=== PATIENT | male | born 1950 | race Caucasian/White ===

== ENCOUNTER 2016-10-11 13:07 | Inpatient (IN) | payer OTHER, MEDICARE ==
[~2016-10-11] VITALS: Ht 182.9 cm; Wt 95.7 kg
[~2016-10-11 13:07] MED LIST: LORAZEPAM1 M1 PO; MULTI-DAY VITA1 EACH PO
[2016-10-11] MEDS ORDERED: AMLODIPINE BESY10 M1 PO (14:01)
--- NOTE | 2016-10-11 14:29 | ED PSYCHIATRIC COMPLAINT ---
See Addendum History of Present Illness General Chief Complaint: ETOH/Drug Related Complaint Stated Complaint: SIB DR OLIVEIRA, REQUESTING ETOH DETOX, -SI/HI Source: patient, old records Exam Limitations: no limitations Vital Signs & Intake/Output Vital Signs & Intake/Output Vital Signs Date Time Temp Pulse Resp B/P B/P Pulse O2 O2 Flow FiO2 Mean Ox Delivery Rate 10/11 2002 97.9 88 19 177/88 97 Room Air 10/11 2001 97.9 88 18 177/88 10/11 1903 98.6 76 20 194/98 98 Room Air 10/11 1902 98.6 76 20 194/98 10/11 1554 97.0 70 18 148/81 96 Room Air 10/11 1313 97.5 74 20 172/80 98 Room Air Allergies Coded Allergies: No Known Allergies (10/11/16) Reconcile Medications Amlodipine Besylate 10 MG TABLET 1 TAB PO DAILY BP (Reported) Triage Note: PT TO ED WITH REQUESTING DETOX FROM ALCOHOL. PT HAS BEEN DRINKING NON STOP FOR 2 WEEKS. PT SENT IN BY DR BRANDON. PT WENT TO SEE DR BRANDON YESTERDAY FOR C/O FATIGUE. LABS WERE DRAWN AND PT WAS FOUND TO HAVE ETOH LEVEL OF 288 AND ELEVATED AST AND ALT. PT HAS NEVER TRIED TO DETOX IN THE PAST. UNSURE IF WITHDRAWL SEIZURES. PT ADMITS TO OCCASIONAL MARIJUANA USE. DENIES SI/HI. STATES HE DRINKS 1 LARGE BOTTLE OF WINE, 6-7 BEERS AND A COUPLE OF NIPS DAILY. LAST DRINK WAS 2 BEERS THIS AM. PT STATES ALL HE WANTS TO DO IS SLEEP. Triage Nurses Notes Reviewed? yes Onset: Just prior to arrival Duration: hour(s):, constant, continues in ED Timing: recent history Severity: moderate Associated Symptoms: impaired concentration, insomnia HPI: Patient presents for alcohol detox last drink 6 hours prior to admission. He normally drinks several bottles of wine and many shots of vodka daily. He becomes shaky when he stops drinking. Daily he has had physical depression point rest in bed all day and sleep having associated insomnia. He's never stopped for a long period of time and doesn't know if he will have withdrawal seizure or DTs. He denies fever chills nausea vomiting diarrhea abdominal pain chest pain shortness breath headache dysuria rash bleeding suicidal ideation homicidal ideation hallucination. (HIPMAIRA CROSS MD) Past History Travel History Traveled to [place] past 21 day No Medical History Any Pertinent Medical History? 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 No (MAIRA LEMUS MD) Review of Systems Review of Systems Constitutional: Reports: see HPI, malaise. EENTM: Reports: no symptoms. Respiratory: Reports: no symptoms. Cardiovascular: Reports: no symptoms. GI: Reports: no symptoms. Genitourinary: Reports: no symptoms. Musculoskeletal: Reports: no symptoms. Skin: Reports: no symptoms. Neurological/Psychological: Reports: no symptoms. Hematologic/Endocrine: Reports: no symptoms. Immunologic/Allergic: Reports: no symptoms. All Other Systems: Reviewed and Negative (MAIRA LEMUS MD) Physical Exam Physical Exam General Appearance: well developed/nourished, alert, awake, anxious, mild distress Head: atraumatic, normal appearance Eyes: Bilateral: normal appearance, PERRL, EOMI. 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 patient not suicidal (MAIRA LEMUS MD) Progress Differential Diagnosis: drug intoxication, drug overdose, drug withdrawal, electrolyte abnormality Plan of Care: Orders Procedure Date/time Status Regular Diet 10/12 D Active Heart Healthy Diet 10/12 B Active Patient Data 06/28 1947 Active ED Holding Orders 10/12 1927 Active Admit to inpatient 10/12 1927 Active Vital Signs 10/12 1927 Active Code Status 10/12 1927 Active Pathway - chart 10/11 1921 Active EKG 10/11 1920 Active CIWA 10/11 1436 Active URINE DRUG SCREEN FOR ER ONLY 10/11 1436 Complete ETHANOL 10/11 1436 Complete COMPREHENSIVE METABOLIC PANEL 10/11 1436 Complete CBC WITHOUT DIFFERENTIAL 10/11 1436 Complete Intake & Output 10/11 1406 Active Current Medications Sig/Will Start time Last Medication Dose Stop Time Status Admin Lorazepam 1 MG Q12H 10/13 0000 AC (Ativan) 10/13 1201 Amlodipine Besylate 10 MG DAILY 10/12 1000 AC (Norvasc) Folic Acid 1 MG DAILY 10/12 1000 UNVr (Folic Acid) 10/14 1001 Multivitamins 1 TAB DAILY 10/12 1000 UNVr (Theragran Vitamins) Thiamine HCl 100 MG DAILY 10/12 1000 UNVr (Vitamin B1) 10/14 1001 Lorazepam 1.5 MG Q6 10/12 0600 AC (Ativan) 10/12 1801 Acetaminophen 1,000 MG ONCE ONE 10/11 2014 UNVr (Ofirmev) 10/11 2028 N/A 1 UNIT (No Carrier) Lorazepam 2 MG Q2P PRN 10/11 1929 AC (Ativan) Lorazepam 1 MG Q2P PRN 10/11 193 AC (Ativan) Lorazepam 2 MG Q6 10/11 1921 AC (Ativan) 10/12 0001 Cyanocobalamin/ 1 BAG DAILY 10/11 1920 AC Thiamine/Pyridoxine (Vitamin in I.V.) Sodium Chloride 1,000 ML (Normal Saline 0.9%) Laboratory Tests 10/11/16 1446: Anion Gap 14, Estimated GFR > 60, BUN/Creatinine Ratio 12.5, Glucose 115 H, Calcium 8.8, Total Bilirubin 1.0, AST 175 H, ALT 180 H, Alkaline Phosphatase 79, Total Protein 7.1, Albumin 4.5, Globulin 2.6, Albumin/Globulin Ratio 1.7, CBC w Diff NO MAN DIFF REQ, RBC 4.44 L, MCV 94.4 H, MCH 33.0 H, RDW 12.7, MPV 7.2 L, Gran % 58.7, Lymphocytes % 25.6, Monocytes % 14.7 H, Eosinophils % 0.8, Basophils % 0.2, Absolute Granulocytes 2.4, Absolute Lymphocytes 1.0 L, Absolute Monocytes 0.6, Absolute Eosinophils 0, Absolute Basophils 0, PUBS MCHC 35.0, Serum Alcohol 231.0 10/11/16 1439: Urine Opiates Screen < 100.00, Methadone Screen < 40, Barbiturate Screen < 60, Ur Phencyclidine Scrn < 6.00, Amphetamines Screen < 100, U Benzodiazepines Scrn < 85, Urine Cocaine Screen < 50, Urine Cannabis Screen > 80.00 H 3:15 PM PATIENT SIGNED OUT TO ME BY DR LEMUS. PENDING SOBRIETY, CIWA SCORES. 7:28 AM PATIENT STARTING TO HALLUCINATE, FEELING SHAKY. CIWA 12. IV ATIVAN ORDERED, ATIVAN PROTOCOL ORDERED. BANANA BAG ORDERED. ADMITTED TO DR TRIVEDI. (RESHMA LEACH MD) Hand-Off Endorsed To: RESHMA LEACH MD Endorsed Time: 1500 Pending: labs, other (GIA) (MAIRA LEMUS MD) Departure Departure Disposition: STILL A PATIENT Condition: Stable Clinical Impression Primary Impression: Alcohol dependence syndrome Qualifiers: Substance use status: unspecified alcohol-induced disorder Qualified Code: F10.29 - Alcohol dependence with unspecified alcohol-induced disorder Secondary Impressions: Acute alcoholic hepatitis Alcohol intoxication Qualifiers: Complication of substance-induced condition: with unspecified complication Qualified Code: F10.929 - Alcohol use, unspecified with intoxication, unspecified Referrals: ROMA TERRAZAS,KARSTEN Luo (PCP/Family) Departure Forms: Customer Survey General Discharge Information (MAIRA LEMUS MD) Departure Time of Disposition: 1920 Admission Note Spoke With: WAQAS TRIVEDI MD Documentation of Exam: Documentation of any treatments & extenuating circumstances including Concerns Regarding Discharge (functional status, medication knowledge or non-compliance, living conditions, etc.) that warrant an admission rather than observation: [ ATIVAN TAPER, CIWA PROTOCOL, SEIZURE PRECAUTIONS, CRISIS CONSULTATION, MONITOR I /O] (RESHMA LEACH MD)
[2016-10-11 14:57] LABS: ABSOLUTE BASOPHIL COUNT 0 /CUMM (0.0-0.2); ABSOLUTE EOSINOPHIL COUNT 0 /CUMM (0.0-0.7); ABSOLUTE GRANULOCYTE CT 2.4 /CUMM (1.4-6.5); ABSOLUTE MONOCYTE COUNT 0.6 /CUMM (0.10-0.60); BASOPHIL % 0.2 % (0.0-2.0); EOSINOPHIL % 0.8 % (0-5); GRANULOCYTE % 58.7 % (42.2-75.2); MEAN CORPUSCULAR VOLUME 94.4 FL (80.0-94.0); MEAN PLATELET VOLUME 7.2 FL (7.4-10.4); RBC DISTRIBUTION WIDTH 12.7 % (11.5-14.5); RED BLOOD CELL CT 4.44 /CUMM (4.70-6.10)
[2016-10-11 15:17] LABS: PLATELET COUNT 118 /CUMM (130-400)
[2016-10-11 19:02] VITALS: BP 194/98
[2016-10-11 20:02] VITALS: BP 177/88
[2016-10-11 21:15] VITALS: BP 166/88
[2016-10-11 23:00] VITALS: BP 166/72
[2016-10-12] VITALS (18 sets, daily range): BP systolic 119–196; BP diastolic 60–110
--- NOTE | 2016-10-12 00:54 | History & Physical ---
ODILIA TERRAZAS,[facility] 10/11/16 2242: General Information and HPI MD Statement: I have seen and personally examined FLO WOODWARD and documented this H&P. The patient is a 66 year old M who presented with a patient stated chief complaint of [alcohol detox]. Source of Information: patient Exam Limitations: poor historian History of Present Illness: Mr. Woodward is 66 year old male with past medical history of alcohol dependence, hypertension, transaminitis who presented to ED requesting alcohol detox. Patient has been drinking alcohol for more than 30 years, haven't been setup sober "for many years", never had alcohol detoxication in the past, no alcohol inpatient or outpatient detox program, no history of alcohol related seizure or previous hospitalization for alcohol related illness. Patient decided to come to the ED for alcohol detox after he received a call from PCP requesting him to come for abnormal lab test apparently transaminitis that was tested in 10/10. Patient used to drink 3 cans of beer, couple shots of vodka and gallon of red wine daily as "a reward for a long work day", patient mentioned working 3 different jobs and used to be stressed and drink the whole night. Last drink was day of admission at 8 AM. Patient denied history of cigarette smoking, smokes marijuana 3 times a week, no IV drug use. Last year patient had transaminitis and was evaluated by Dr. Ba who asked him to cut down or quit drinking. Patient reported cutting down in drinking. Patient reported lightheadedness, chronic cough, palpitation, hemorrhoidal bleeding, abdominal bloating. Denied headache, blurry vision, nausea or vomiting, abdominal pain, fever, chills, night sweats, chest pain, shortness of breath, dysuria, skin changes, numbness or weakness. 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 Exam & Diagnostic Data Last 24 Hrs of Vital Signs/I&O Vital Signs Date Time Temp Pulse Resp B/P B/P Pulse O2 O2 Flow FiO2 Mean Ox Delivery Rate 10/12 0406 98.6 85 16 182/98 95 Room Air 10/12 0400 98.6 84 20 182/98 10/12 0225 84 160/90 10/12 0208 85 170/100 10/12 0100 84 168/108 10/12 0000 98.9 85 16 170/100 10/11 2300 99.1 84 16 166/72 10/11 2300 99.1 84 16 166/72 96 Room Air 10/11 2224 98.8 78 18 174/78 94 Room Air 10/11 2118 98.2 74 16 166/88 94 Room Air 10/11 2115 98.2 74 16 166/88 10/11 2002 97.9 88 19 177/88 97 Room Air 10/11 2001 97.9 88 18 177/88 10/11 1903 98.6 76 20 194/98 98 Room Air 10/11 1902 98.6 76 20 194/98 10/11 1554 97.0 70 18 148/81 96 Room Air 10/11 1313 97.5 74 20 172/80 98 Room Air Intake & Output 10/12 0800 10/12 0000 10/11 1600 Intake Total 30 Output Total Balance 30 Intake, Oral 30 Patient 95.708 kg 95.708 kg Weight Weight Estimated Measurement Method Physical Exam General Appearance Alert, Oriented X3, Cooperative, No Acute Distress Skin No Rashes, No Breakdown, No Significant Lesion Skin Temp/Moisture Exam: Warm/Dry HEENT Atraumatic, PERRLA, EOMI, Mucous Membr. moist/pink Neck Supple, No JVD Lymphatic no cervical lymphadenopathy Cardiovascular Regular Rate, Normal S1, Normal S2, No Murmurs Lungs Clear to Auscultation, Normal Air Movement Abdomen Normal Bowel Sounds, Soft, No Tenderness, No Hepatospenomegaly, No Masses Neurological Normal Gait, Normal Speech, Strength at 5/5 X4 Ext, Normal Tone, Sensation Intact, Cranial Nerves 3-12 NL, Reflexes 2+, cerebullar function intact nystagmus , fime tremors ? flapping tremors Extremities No Clubbing, No Cyanosis, No Edema, Normal Pulses, No Tenderness/ Swelling Assessment/Plan Assessment: Mr. Woodward is 66 year old male with past medical history of alcohol dependence, hypertension, transaminitis who presented to ED requesting alcohol detox. In ED , patient developed 2 episodes of nonsustained asymptomatic SVT that broke down before giving any medication. Vitals Temperature 97.5, pulse 74, blood pressure 172/80, respiratory 20 with saturation 98% room air Lab H&H 14.7/42, platelets 118 muscle G1 41, potassium 3.8, BUN/creatinine 10/ 0.8, AST 175, was 223 on 10/10, ALT 180 was 209 on 10/10, atorvastatin 79, bilirubin normal, urine positive for cannabis and alcohol Problem list #Alcohol detox #SVT #HTN #Transaminitis Plan -Admit to telemetry floor -Ativan 2 mg every 6 -Ativan per CIWA -Vitals every shift -Seizure precaution, monitor for DT -Continue blood pressure medication -Serial troponins and EKG -Check magnesium and phosphorus -Check INR -Check ammonia -Check folic acid and thiamine -Obtain echocardiogram -Cardiology consultation in a.m. -Follow-up liver function test -Obtain abdominal ultrasound Code full DVT prophylaxis ALPS Diet heart healthy As Ranked By This Provider Problem List: 1. Alcohol intoxication Qualifiers Complication of substance-induced condition: with unspecified complication Qualified Code: F10.929 - Alcohol use, unspecified with intoxication, unspecified Core Measures/Miscellaneous Acute Coronary Syndrome ACS Diagnosis: No Cerebrovascular Accident CVA/TIA Diagnosis: No Congestive Heart Failure CHF Diagnosis: No VTE (View Protocol) VTE Risk Factors: Age > 40 No [facility] VTE prophylaxis d/t: No contraindications No VTE Pharm Prophylaxis d/t: Platelets below ref range VTE Diagnosis: No VTE Type: NONE VTE Confirmed by (Test): NONE Sepsis (View Protocol) Severe Sepsis Present: No Septic Shock Septic Shock Present: No Miscellaneous Documentation Attending Case Discussed With: WAQAS TRIVEDI MD Primary Care Physician: KARSTEN BRANDON MD Patient sees these Specialists none Level of Patient Care: Telemetry RONALD ANGELA MD 10/12/16 0113: Resident Review Statement Resident Statement: examined this patient, discussed with planner internship, agreed with planner internship Other Findings: 59-year-old man with past medical history significant only for hypertension, chronic alcohol abuse and seasonal allergies presents for alcohol detox for the first time. Patient was sent in by his primary care physician after his routine blood work showed elevated transaminases. He hasn't drinking for over 30 years continuously has not cut down last January after he was evaluated by a business development intern for elevated transaminases at that time, he reports that his liver function improved after some time, however he resumed drinking heavily again early this year. He doesn't feel the need to quit as he uses alcohol as his reward sytems for his hard work during the day but says his would like him to quit drinking. He denies any alcoholic seizures, previous hospitalizations or legal issues from call consumptions. He has also never been through AA meetings, inpatient or outpatient alcohol detox or rehabilitation programs and has never tried to quit on his own. He smokes marijuana 3 times a week and quit smoking cigarrettes about 25yrs ago. In the ER patient was found to have transient but requiring episodes of non- sustained SVT and patient denies any cardiac history or family history of cardiac disease. Patient remained asymptomatic throughout each episode. Vitals Stable except for elevated BP Pertinent exam-Tremors; other exam and labs per above Assessment 1. Alcohol detox 2. New onset of transient non-sustained SVT 3. Transaminitis 4. Thrombocytopenia 5. Hypertension 6. Chronic alcohol abuse Plan Admit to telemetry for close monitoring IV Ativan penicillin protocol and scheduled Ativan 2 mg every 6 hours IV banana bag 1; then start by mouth thiamine, multivitamins, folate Check magnesium and phosphate Daily LFTs Cardiology consult in a.m. for new onset SVT Try vasovagal maneuvers for any new run of SVT; but if it persists consider intravenous adenosine Obtain a right upper quadrant ultrasound scan to rule out ascites/cirrhosis Obtain an echocardiogram to rule out alcoholic cardiomyopathy or other structural heart disease Trend serial EKG and troponins Check coag's, ammoniaConsider Psych/SW consult in am for outpatient detox program if patient expresses interest Restart his home medication of amlodipine 10 mg daily Heart healthy diet Pain pathway ordered Alps for DVT ppx Full code WAQAS TRIVEDI 10/12/16 0450: Attending MD Review Statement Attending Statement Attending MD Statement: examined this patient, discuss w/resident/PA/FILER HELPER, agreed w/resident/PA/FILER HELPER, reviewed EMR data (avail), reviewed images, amended to note Attending Assessment/Plan: Cc: Alcohol detox PMH: Alcoholism, hypertension Patient is poor historian. Extensive alcohol history. Patient was recently feeling lethargic so he followed up with primary care physician, was found to have elevated liver enzymes, so he is was sent by primary care physician for all called detox. No previous attempt of detox, unaware of any alcohol related seizures. Denies any suicidal ideations. 14 point review of systems unremarkable. Vitals: Afebrile, pulse in 70s but patient had 2 episodes of SVT, lasted for 2 minutes each in ER. Hypertensive blood pressure 194/98, saturating well on room air. On exam: A O 3, cooperative, no acute distress, neck supple, JVD normal, no lymphadenopathy, mucosa moist, no focal neurological deficit, fine tremors present no dependent edema, no obvious skin rashes or inflammation CVS: S1-S2, RRR, tachycardia. RS: Clear to auscultate bilaterally. Abdomen: Soft, NT, ND, bowel sounds present. Labs: WBC 4.0, hemoglobin 14.7, hematocrit 42.0, platelet 118, MCV 94. Sodium 141, potassium 3.8, chloride 102, bicarbonate 24 Combivent and creatinine 0.8, glucose 115, calcium 8.8, AST 175, AST 180, albumin 4.5, bilirubin 1.0, alkaline phosphatase 79 called to 31, elevated marijuana levels 3 runs of SVT, 2 runs in ER, one run on telemetry floor. A and P 66-year-old male with a past medical history significant for hypertension, unclear compliance an extensive alcohol history was sent from PCP for elevated liver enzymes and alcohol level. Patient was visiting PCP for fatigue at that time. Other than generalized facial fatigue patient does not have any other complaints including but not limited to chest pain, shortness of breath, palpitations, weight loss, weight gain, loss of appetite, loss of consciousness, presyncope. Patient is significantly hypertensive in ER and was found to have SVT as mentioned above. Transaminitis secondary to alcoholism, significant alcohol levels and blood. He would benefit from telemetry admission for recurrent SVTs related to alcoholism, replete electrolytes + Alcoholism + Alcohol withdrawal + Alcoholic hepatitis + SVT + History of hypertension - Admit to telemetry - Continuous telemetry monitoring - Serial troponin and EKG - Check mag and phosphorus replete if low - Continue banana bag followed by IV hydration - High-dose thiamine - Check ammonia, INR, abdominal ultrasound to rule out splenomegaly, ascites, 2- D echo to rule out cardiomyopathy - Cardiology consult in a.m. - If patient happens to have persistent SVT more than 15 minutes then may require adenosine or beta ankur - Psych consult in a.m. - Repeat CBC, BMP, LFT, INR in a.m. - Continue home doses of amlodipine - Lovenox for DVT prophylaxis - Adequate pain control - Low threshold to transfer to ICU if severe DTs given extensive alcohol history
--- NOTE | 2016-10-12 04:53 | Admission Certification ---
Admission Certification Certification Statement - As attending physician, I certify that at the time of - admission, based on clinical presentation, severity of - symptoms, need for further diagnostic testing and - therapeutic interventions, and risk of adverse outcomes - without in-hospital treatment, in my clinical assessment, - this patient requires an acute hospital stay for a minimum - of two nights or longer. I have also considered psychsocial - factors such as support system, advanced age, financial - issues, cognitive issues, and failed out-patient treatments, - past re-admission history, safety of patient, and lack of - compliance as applicable. Specific rationale supporting this admission is: Alcohol detox, hypertension, SVT
--- NOTE | 2016-10-12 07:56 | Event Note ---
Event Note Event Note: Code 7 was called, when Mr Christianson was very agitated. He has been receiving the scheduled doses of ativan and also prn doses intravenously. Changed the dose of ativan to reflect the ciwa score, as a sliding scale. He was intermittently getting agitated, and required restraints. Spoke to the resident, and a decison was made to transfer the pt to the ICU for closer monitoring(assess the need for ativan drip). Since, the attending physician was not present at that time, the information was relayed over the tele team and icu team to coordiate a safe transfer.
[2016-10-12 08:14] LABS: PT 11.4 SEC (9.4-12.5)
--- NOTE | 2016-10-12 08:59 | Cons- CRCU ---
JANETTE TERRAZAS,[facility] 10/12/16 0859: General Information and HPI Consulting Request Date of Consult: 10/12/16 Source of Information: old records Exam Limitations: clinical condition History of Present Illness: 66/M with PMH of alcohol dependence, HTN, transaminitis who followed up with primary care physician, was found to have elevated liver enzymes, so he is was sent by primary care physician for all called detox. Patient reports drinking 3 cans of beer, couple shots of vodka and gallon of red wine daily. Last drink was on the day of admission at 8 AM. He has been drinking continuously for the past 30 years, he had cut down last January after he was evaluated by a shared services representative for elevated transaminases at that time , he reports that his liver function improved after some time, however he resumed drinking heavily again early this year. He doesn't feel any need to quit, his would like him to quit drinking. He denies any history of seizures, previous hospitalizations or legal issues related to alcohol consumptions. He has also never been to AA meetings, inpatient or outpatient alcohol detox or rehabilitation programs and has never tried to quit on his own. He smokes marijuana 3 times a week and quit cigarrettes about 25 yrs ago. Last year patient had transaminitis and was evaluated by Dr. Ba who asked him to cut down or quit drinking. Patient reported cutting down in drinking. The patient was evaluated in the ED and found to be hypertensive and an active alcohol withdrawal. In the ED he also was noted to develop 2 episodes of nonsustained SVT. The patient was admitted to the telemetry floor on the [facility] protocol. Over several hours however the patient's symptoms escalated and he became extremely hypertensive and tachycardic. He is also tremulous and confused. He was subsequent transfer to the critical care unit for further treatment and monitoring. The patient is confused and not able to adequately answer questions. Allergies/Medications Allergies: Coded Allergies: No Known Allergies (10/11/16) Home Med List: Amlodipine Besylate 10 MG TABLET 1 TAB PO DAILY BP (Reported) Review of Systems Review of Systems Constitutional: Reports: see HPI. 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 Home Smoking Status: Never Smoked ETOH Use: alcoholic Illicit Drug Use: marijuana Exam & Diagnostic Data Last 24 Hrs of Vital Signs/I&O Vital Signs Date Time Temp Pulse Resp B/P B/P Pulse O2 O2 Flow FiO2 Mean Ox Delivery Rate 10/12 0937 105 199/96 10/12 0847 98.9 94 18 125/98 10/12 0740 98.7 87 16 174/96 94 Room Air 10/12 0645 97.9 84 16 174/96 10/12 0530 88 20 188/98 10/12 0430 98.7 150 20 182/100 10/12 0406 98.6 85 16 182/98 95 Room Air 10/12 0400 98.6 84 20 182/98 10/12 0225 84 160/90 10/12 0208 85 170/100 10/12 0100 84 168/108 10/12 0000 98.9 85 16 170/100 10/11 2300 99.1 84 16 166/72 10/11 2300 99.1 84 16 166/72 96 Room Air 10/11 2224 98.8 78 18 174/78 94 Room Air 10/11 2118 98.2 74 16 166/88 94 Room Air 10/11 2115 98.2 74 16 166/88 10/11 2002 97.9 88 19 177/88 97 Room Air 10/11 2002 97.9 88 18 177/88 10/11 1903 98.6 76 20 194/98 98 Room Air 10/11 1902 98.6 76 20 194/98 10/11 1554 97.0 70 18 148/81 96 Room Air 10/11 1313 97.5 74 20 172/80 98 Room Air Intake & Output 10/12 1600 10/12 0800 10/12 0000 Intake Total 1000 Output Total 800 Balance 200 Intake, IV 1000 Intake, Oral 0 Output, Urine 800 Patient 95.708 kg Weight Physical Exam General Appearance: well developed/nourished, alert, awake, anxious, lethargic, mild distress, intoxicated Head: atraumatic, normal appearance Eyes: Bilateral: normal appearance, PERRL, EOMI. Respiratory: normal breath sounds, chest non-tender, no respiratory distress, quiet respiration, lungs clear Cardiovascular: regular rate/rhythm, tachycardia up to 150/min Gastrointestinal: soft, non-tender Last 48 Hrs of Labs/Polo: Laboratory Tests 10/12/16 1034: Troponin I Pending 10/12/16 0658: Ammonia 28 10/12/16 0658: Anion Gap 12, Estimated GFR > 60, BUN/Creatinine Ratio 14.3, Hemoglobin A1c 5.6, Phosphorus 3.0, Magnesium 1.7, Total Bilirubin 2.4 H, Direct Bilirubin 0.5 H, AST 157 H, ALT 175 H, Alkaline Phosphatase 89, Troponin I 0.03, Total Protein 7.3, Albumin 4.8, PT 11.4, INR 1.09 10/11/16 2330: Phosphorus 3.8, Magnesium 1.6, Troponin I 0.03 10/11/16 1446: Anion Gap 14, Estimated GFR > 60, BUN/Creatinine Ratio 12.5, Glucose 115 H, Calcium 8.8, Total Bilirubin 1.0, AST 175 H, ALT 180 H, Alkaline Phosphatase 79, Total Protein 7.1, Albumin 4.5, Globulin 2.6, Albumin/Globulin Ratio 1.7, CBC w Diff NO MAN DIFF REQ, RBC 4.44 L, MCV 94.4 H, MCH 33.0 H, RDW 12.7, MPV 7.2 L, Gran % 58.7, Lymphocytes % 25.6, Monocytes % 14.7 H, Eosinophils % 0.8, Basophils % 0.2, Absolute Granulocytes 2.4, Absolute Lymphocytes 1.0 L, Absolute Monocytes 0.6, Absolute Eosinophils 0, Absolute Basophils 0, PUBS MCHC 35.0, Serum Alcohol 231.0 10/11/16 1439: Urine Opiates Screen < 100.00, Methadone Screen < 40, Barbiturate Screen < 60, Ur Phencyclidine Scrn < 6.00, Amphetamines Screen < 100, U Benzodiazepines Scrn < 85, Urine Cocaine Screen < 50, Urine Cannabis Screen > 80.00 H Assessment/Plan Impression/Plan: Mr. Christianson is 66 year old male with past medical history of alcohol dependence, hypertension, transaminitis who presented to ED requesting alcohol detox. In ED , patient developed 2 episodes of nonsustained asymptomatic SVT that resolved spontaneous without interventions. 1. EtOH withdrawal/delirium tremens. Patient needed Ativan drip, for that reason he was transferred to the ICU unit. * Start aspiration and seizure precaution, keep patient nothing by mouth with elevated head of bed * Start Ativan drip as 4 mg/h and titer based on CIWA score * 500 thiamine IV every 8 for 6 dose followed by 250 mg IV once daily for 5 doses. * Continue multivitamin and folic acid daily * Zofran for nausea when necessary 2. Supraventricular tachycardia, nonsustained, likely related to EtOH withdrawal. * ACS was ruled out. * Pending echocardiogram * Replete electrolytes as necessary * Decrease metoprolol to 2.5 mg IV every 8 4. Transaminitis due to EtOH. * Pending liver ultrasound * Repeat ICU bundle at 6 PM * Repeat liver function daily Nothing by mouth DVT prophylaxis mechanical and pharmacological Full code Consult Acknowledgment - Thank you for your consult request. JUSTICE TERRAZAS,Peter ROWAN 10/12/16 0920: General Information and HPI Consulting Request Date of Consult: 10/12/16 Requested By: Dr. Guzman Reason for Consult: CRCU management of ETOH withdrawl Source of Information: old records Exam Limitations: clinical condition Allergies/Medications Current Medications: Current Medications Sig/Will Start time Last Medication Dose Route Stop Time Status Admin Acetaminophen 650 MG Q6P PRN 10/11 2229 AC PO Acetaminophen 0 .STK-MED ONE 10/11 2025 DC IV Acetaminophen 1,000 MG ONCE ONE 10/11 2014 DC 10/11 N/A 1 UNIT IV 10/11 Amlodipine Besylate 10 MG DAILY 10/12 1000 AC 10/12 PO 0208 Cyanocobalamin/ 1 BAG DAILY 10/11 1921 DC 10/11 Thiamine/Pyridoxine IV 10/12 0500 2009 Sodium Chloride 1,000 ML Cyclobenzaprine HCl 5 MG BID 10/11 223 AC 10/12 PO 0207 Diphenhydramine HCl 25 MG AT BEDTIME 10/12 2200 CAN PO Folic Acid 1 MG DAILY 10/12 1000 AC PO 10/14 1001 Hydromorphone HCl 0.5 MG Q4P PRN 10/11 2230 AC IV Lorazepam 1 MG Q12H 10/13 0000 CAN PO 10/13 1201 Lorazepam 2 MG ONCE ONE 10/12 0700 DC IV 10/12 0701 Lorazepam 1.5 MG Q6 10/12 0600 CAN PO 10/12 1801 Lorazepam 0 Q1P PRN 10/12 0530 AC 10/12 IV 0854 Lorazepam 1 MG ONCE ONE 10/12 0400 DC 10/12 IV 10/12 0401 0358 Lorazepam 2 MG Q6 10/11 2359 AC 10/12 PO 0614 Lorazepam 2 MG Q6H 10/11 2230 DC IV Lorazepam See Dose Q1P PRN 10/11 2230 DC Insts (1) IV Lorazepam 0 .STK-MED ONE 10/11 2024 DC .ROUTE Lorazepam 0 .STK-MED ONE 10/11 1934 DC PO Lorazepam 2 MG ONE ONE 10/11 1930 DC 10/11 IV 10/11 1931 1905 Lorazepam 2 MG ONCE ONE 10/11 1930 DC 10/11 PO 10/11 193 192 Lorazepam 2 MG Q2P PRN 10/11 1930 DC 10/12 IV 0430 Lorazepam 1 MG Q2P PRN 10/11 1930 AC IV Lorazepam 2 MG Q6 10/11 1922 DC 10/11 PO 10/12 0001 2020 Lorazepam 0 .STK-MED ONE 10/11 1913 DC .ROUTE Metoprolol Tartrate 12.5 MG ONCE ONE 10/12 0030 CAN PO 10/12 0031 Metoprolol Tartrate 5 MG ONCE ONE 10/11 2030 DC IV 10/11 203 Metoprolol Tartrate 0 .STK-MED ONE 10/11 2025 DC IV Multivitamins 1 TAB DAILY 10/12 1000 AC PO Ondansetron HCl 4 MG Q6P PRN 10/11 2345 AC IV Ondansetron HCl 0 .STK-MED ONE 10/11 1715 DC PO Ondansetron HCl 0 .STK-MED ONE 10/11 1712 DC .ROUTE Ondansetron HCl 4 MG ONCE ONE 10/11 1645 DC 10/11 PO 10/11 1646 1710 Oxycodone HCl 5 MG Q6P PRN 10/11 2300 AC PO Polyethylene Glycol 17 GM AT BEDTIME 10/12 2200 AC PO Senna/Docusate Sodium 2 TAB AT BEDTIME 10/12 2200 AC PO Thiamine HCl 100 MG DAILY 10/12 1000 AC PO 10/14 1001 Dose Instructions: (1)Lorazepam: See Admin Criteria Exam & Diagnostic Data Last 24 Hrs of Vital Signs/I&O Vital Signs Date Time Temp Pulse Resp B/P B/P Pulse O2 O2 Flow FiO2 Mean Ox Delivery Rate 10/12 0847 98.9 94 18 125/98 10/12 0740 98.7 87 16 174/96 94 Room Air 10/12 0645 97.9 84 16 174/96 10/12 0530 88 20 188/98 10/12 0430 98.7 150 20 182/100 10/12 0406 98.6 85 16 182/98 95 Room Air 10/12 0400 98.6 84 20 182/98 10/12 0225 84 160/90 10/12 0208 85 170/100 10/12 0100 84 168/108 10/12 0000 98.9 85 16 170/100 10/11 2300 99.1 84 16 166/72 10/11 2300 99.1 84 16 166/72 96 Room Air 10/11 2224 98.8 78 18 174/78 94 Room Air 10/11 2118 98.2 74 16 166/88 94 Room Air 10/11 2115 98.2 74 16 166/88 10/11 2002 97.9 88 19 177/88 97 Room Air 10/11 2001 97.9 88 18 177/88 10/11 1903 98.6 76 20 194/98 98 Room Air 10/11 1902 98.6 76 20 194/98 10/11 1554 97.0 70 18 148/81 96 Room Air 10/11 1313 97.5 74 20 172/80 98 Room Air Intake & Output 10/12 1600 10/12 0800 10/12 0000 Intake Total 1000 Output Total 800 Balance 200 Intake, IV 1000 Intake, Oral 0 Output, Urine 800 Patient 211 lb Weight Assessment/Plan Other Findings/Comments: I have personally seen and examined the patient and agree with the resident's assessment and plan as detailed above. Briefly, the patient is a 66-year-old male with a past medical history significant for hypertension with unclear compliance and an extensive alcohol history, noting he has been drinking for more than 30 years. The patient was sent from his primary care physician's office for elevated liver enzymes and elevated alcohol level. The patient was advised by his PCP to report to the emergency department after he was found to have transaminitis. The patient was reportedly drinking 3 cans of beer, a few shots of vodka and a gallon of red wine daily. His last drink was on the day of admission at 8 AM. The patient was evaluated in the ED and found to be hypertensive and an active alcohol withdrawal. In the ED he also was noted to develop 2 episodes of nonsustained SVT. The patient had evidence of transaminitis. His urine was positive for cannabis and alcohol. The patient was admitted to the telemetry floor on the CIWA protocol. Over several hours however the patient's symptoms escalated and he became extremely hypertensive and tachycardic. He is also tremulous and confused. He was subsequent transfer to the critical care unit for further treatment and monitoring. The patient is confused and not able to adequately answer questions. Impression: 1. EtOH withdrawal/delirium tremens. 2. Supraventricular tachycardia, nonsustained, likely related to EtOH withdrawal. 3. Uncontrolled hypertension. 4. Transaminitis due to EtOH. Plan: * Start an Ativan drip at 4 mg per hour. Avoid oversedation. * Continue the patient on an SAS of 3. * Monitor CIWA scores. * Seizure precautions, monitor for any seizures. * Aspiration precautions. * Keep head of the bed greater than 30 at all times. * NPO. * Multivitamin, thiamine and folate - banana bag. * High dose thiamine protocol initiated. * Serial EKGs and troponins. Cardiology consulted. Metoprolol recommended per Dr. Shepherd. * Check an echocardiogram. * Check a CBC, ICU bundle around 2 PM today. * Replete electrolytes as necessary. * Check a liver ultrasound for further evaluation of transaminitis. * DVT prophylaxis at all times. * Continue all supportive care. I discussed the plans of care with the housestaff in detail and asked him to contact me should the patient's condition change or deteriorate. Consult Acknowledgment - Thank you for your consult request.
--- NOTE | 2016-10-12 09:36 | Cons- Cardiology ---
General Information and HPI Consulting Request Date of Consult: 10/12/16 Requested By: WAQAS TRIVEDI MD Reason for Consult: Supra-ventricular tachycardia Source of Information: old records Exam Limitations: unable to give history, not alert/orientated, clinical condition, confusion, intoxication History of Present Illness: Mr. Christianson is 66 year old male with past medical history of alcohol dependence, hypertension, transaminitis who presented to ED requesting alcohol detox. Patient has been drinking alcohol for more than 30 years, haven't been setup sober "for many years", never had alcohol detoxication in the past, no alcohol inpatient or outpatient detox program, no history of alcohol related seizure or previous hospitalization for alcohol related illness. Patient decided to come to the ED for alcohol detox after he received a call from PCP requesting him to come for abnormal lab test apparently transaminitis that was tested in 10/10. Patient used to drink 3 cans of beer, couple shots of vodka and gallon of red wine daily as "a reward for a long work day", patient mentioned working 3 different jobs and used to be stressed and drink the whole night. Last drink was day of admission at 8 AM. Patient denied history of cigarette smoking, smokes marijuana 3 times a week, no IV drug use. Last year patient had transaminitis and was evaluated by Dr. Ba who asked him to cut down or quit drinking. Patient reported cutting down in drinking. Patient reported lightheadedness, chronic cough, palpitation, hemorrhoidal bleeding, abdominal bloating. Denied headache, blurry vision, nausea or vomiting, abdominal pain, fever, chills, night sweats, chest pain, shortness of breath, dysuria, skin changes, numbness or weakness. Cardiac consultation was called because of intermittent paroxysmal supraventricular tachycardia. I also noted has been hypertensive response related to alcoholic control. Allergies/Medications Allergies: Coded Allergies: No Known Allergies (10/11/16) Home Med List: Amlodipine Besylate 10 MG TABLET 1 TAB PO DAILY BP (Reported) Current Medications: Current Medications Sig/Will Start time Last Medication Dose Route Stop Time Status Admin Acetaminophen 650 MG Q6P PRN 10/11 2229 AC PO Acetaminophen 0 .STK-MED ONE 10/11 2025 DC IV Acetaminophen 1,000 MG ONCE ONE 10/11 2014 DC 10/11 N/A 1 UNIT IV 10/11 Amlodipine Besylate 10 MG DAILY 10/12 1000 AC 10/12 PO 0208 Cyanocobalamin/ 1 BAG DAILY 10/11 192 DC 10/11 Thiamine/Pyridoxine IV 10/12 0500 2010 Sodium Chloride 1,000 ML Cyclobenzaprine HCl 5 MG BID 10/11 2239 AC 10/12 PO 0207 Diphenhydramine HCl 25 MG AT BEDTIME 10/12 2200 CAN PO Folic Acid 1 MG DAILY 10/12 1000 AC PO 10/14 1001 Hydromorphone HCl 0.5 MG Q4P PRN 10/11 2230 AC IV Lorazepam 1 MG Q12H 10/13 0000 CAN PO 10/13 1201 Lorazepam 50 MG ONCE ONE 10/12 0930 UNir Sodium Chloride 500 ML IV 10/12 0931 Lorazepam 2 MG ONCE ONE 10/12 0700 DC IV 10/12 0701 Lorazepam 1.5 MG Q6 10/12 0600 CAN PO 10/12 1801 Lorazepam 0 Q1P PRN 10/12 0530 AC 10/12 IV 0854 Lorazepam 1 MG ONCE ONE 10/12 0400 DC 10/12 IV 10/12 0401 0358 Lorazepam 2 MG Q6 10/11 2359 AC 10/12 PO 0614 Lorazepam 2 MG Q6H 10/11 2230 DC IV Lorazepam See Dose Q1P PRN 10/11 223 DC Insts (1) IV Lorazepam 0 .STK-MED ONE 10/11 2024 DC .ROUTE Lorazepam 0 .STK-MED ONE 10/11 1934 DC PO Lorazepam 2 MG ONE ONE 10/11 193 DC 10/11 IV 10/11 193 190 Lorazepam 2 MG ONCE ONE 10/11 1930 DC 10/11 PO 10/11 193 192 Lorazepam 2 MG Q2P PRN 10/11 1930 DC 10/12 IV 0430 Lorazepam 1 MG Q2P PRN 10/11 1930 AC IV Lorazepam 2 MG Q6 10/11 192 DC 10/11 PO 10/12 0001 2020 Lorazepam 0 .STK-MED ONE 10/11 1912 DC .ROUTE Metoprolol Tartrate 5 MG Q8 10/12 0924 UNVr IV Metoprolol Tartrate 12.5 MG ONCE ONE 10/12 0030 CAN PO 10/12 0031 Metoprolol Tartrate 5 MG ONCE ONE 10/11 2030 DC IV 10/11 2030 Metoprolol Tartrate 0 .STK-MED ONE 10/11 2025 DC IV Multivitamins 1 TAB DAILY 10/12 1000 AC PO Ondansetron HCl 4 MG Q6P PRN 10/11 2345 AC IV Ondansetron HCl 0 .STK-MED ONE 10/11 1715 DC PO Ondansetron HCl 0 .STK-MED ONE 10/11 1712 DC .ROUTE Ondansetron HCl 4 MG ONCE ONE 10/11 1645 DC 10/11 PO 10/11 1646 1710 Oxycodone HCl 5 MG Q6P PRN 10/11 2300 AC PO Polyethylene Glycol 17 GM AT BEDTIME 10/12 220 AC PO Senna/Docusate Sodium 2 TAB AT BEDTIME 10/12 2200 AC PO Thiamine HCl 100 MG DAILY 10/12 1000 AC PO 10/14 1001 Dose Instructions: (1)Lorazepam: See Admin Criteria Past History Travel History Traveled to [place] past 21 day No Medical History Blood Transfusion Hx: No Neurological: NONE EENT: NONE Cardiovascular: hypertension Respiratory: NONE Gastrointestinal: NONE Hepatic: NONE Renal: NONE Musculoskeletal: CHRONIC BACK PAIN Psychiatric: NONE Endocrine: NONE Blood Disorders: NONE Cancer(s): NONE 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 Home Smoking Status: Never Smoked ETOH Use: alcoholic Illicit Drug Use: marijuana Exam & Diagnostic Data Vital Signs and I&O Vital Signs Date Time Temp Pulse Resp B/P B/P Pulse O2 O2 Flow FiO2 Mean Ox Delivery Rate 10/12 0847 98.9 94 18 125/98 10/12 0740 98.7 87 16 174/96 94 Room Air 10/12 0645 97.9 84 16 174/96 10/12 0530 88 20 188/98 10/12 0430 98.7 150 20 182/100 10/12 0406 98.6 85 16 182/98 95 Room Air 10/12 0400 98.6 84 20 182/98 10/12 0225 84 160/90 10/12 0208 85 170/100 10/12 0100 84 168/108 10/12 0000 98.9 85 16 170/100 10/11 2300 99.1 84 16 166/72 10/11 2300 99.1 84 16 166/72 96 Room Air 10/114 98.8 78 18 174/78 94 Room Air 10/11 2117 98.2 74 16 166/88 94 Room Air 10/11 2114 98.2 74 16 166/88 10/11 2002 97.9 88 19 177/88 97 Room Air 10/11 2001 97.9 88 18 177/88 10/11 1903 98.6 76 20 194/98 98 Room Air 10/11 1902 98.6 76 20 194/98 10/11 1554 97.0 70 18 148/81 96 Room Air 10/11 1313 97.5 74 20 172/80 98 Room Air Intake & Output 10/12 0810/12 0000 10/11 1600 10/11 0800 10/11 0000 Intake Total 1000 30 Output Total 800 Balance 200 30 Intake, IV 1000 Intake, Oral 0 30 Output, Urine 800 Patient 211 lb 211 lb Weight Weight Estimated Measurement Method Physical Exam: Patient agitated due to alcoholic withdrawal. Head normocephalic atraumatic Eyes sclera anicteric conjunctiva showed no pallor extraocular muscles were normal Neck no jugular venous distention no thyroid thyroid masses no palpable nodes Chest lungs were clear bilaterally Heart regular rhythm with a 1/6 systolic murmur Abdomen soft no organomegaly bowel sounds normal Extremities no clubbing cyanosis or pedal edema. Neurological no gross motor or sensory deficits. However patient confused and in alcoholic withdrawal. Labs/Polo Results: Laboratory Tests 10/12 10/12 10/11 10/11 0658 0658 2330 1446 Chemistry Sodium (137 - 145 mmol/L) 137 141 Potassium (3.5 - 5.1 mmol/L) 3.8 3.8 Chloride (98 - 107 mmol/L) 100 102 Carbon Dioxide (22 - 30 mmol/L) 26 25 Anion Gap (5 - 16) 12 14 BUN (9 - 20 mg/dL) 10 10 Creatinine (0.7 - 1.2 mg/dL) 0.7 0.8 Estimated GFR (>60 ml/min) > 60 > 60 BUN/Creatinine Ratio (7 - 25 %) 14.3 12.5 Glucose (65 - 99 mg/dL) 115 H Hemoglobin A1c (4.2 - 5.8 %) Pending Calcium (8.4 - 10.2 mg/dL) 8.8 Phosphorus (2.5 - 4.5 mg/dL) 3.0 3.8 Magnesium (1.6 - 2.3 mg/dL) 1.7 1.6 Total Bilirubin (0.2 - 1.3 mg/dL) 2.4 H 1.0 Direct Bilirubin (< 0.4 mg/dL) 0.5 H AST (17 - 59 U/L) 157 H 175 H ALT (21 - 72 U/L) 175 H 180 H Alkaline Phosphatase (< 127 U/L) 89 79 Ammonia (9 - 30 umol/L) 28 Troponin I (<0.11 ng/ml) 0.03 0.03 Total Protein (6.3 - 8.2 g/dL) 7.3 7.1 Albumin (3.5 - 5.0 g/dL) 4.8 4.5 Globulin (1.9 - 4.2 gm/dL) 2.6 Albumin/Globulin Ratio (1.1 - 2.2 %) 1.7 Coagulation PT (9.4 - 12.5 SEC) 11.4 INR (0.90 - 1.17) 1.09 Hematology CBC w Diff NO MAN DIFF REQ WBC (4.8 - 10.8 /CUMM) 4.0 L RBC (4.70 - 6.10 /CUMM) 4.44 L Hgb (14.0 - 18.0 G/DL) 14.7 Hct (42 - 52 %) 42.0 MCV (80.0 - 94.0 FL) 94.4 H MCH (27.0 - 31.0 PG) 33.0 H RDW (11.5 - 14.5 %) 12.7 Plt Count (130 - 400 /CUMM) 118 L MPV (7.4 - 10.4 FL) 7.2 L Gran % (42.2 - 75.2 %) 58.7 Lymphocytes % (20.5 - 51.1 %) 25.6 Monocytes % (1.7 - 9.3 %) 14.7 H Eosinophils % (0 - 5 %) 0.8 Basophils % (0.0 - 2.0 %) 0.2 Absolute Granulocytes (1.4 - 6.5 /CUMM) 2.4 Absolute Lymphocytes (1.2 - 3.4 /CUMM) 1.0 L Absolute Monocytes (0.10 - 0.60 /CUMM) 0.6 Absolute Eosinophils (0.0 - 0.7 /CUMM) 0 Absolute Basophils (0.0 - 0.2 /CUMM) 0 PUBS MCHC (33.0 - 37.0 G/DL) 35.0 Toxicology Serum Alcohol (<10 MG/DL) 231.0 10/11 1439 Toxicology Urine Opiates Screen (>2000 NG/ML) < 100.00 Methadone Screen (>300 NG/ML) < 40 Barbiturate Screen (>200 NG/ML) < 60 Ur Phencyclidine Scrn (>25 NG/ML) < 6.00 Amphetamines Screen (>1000 NG/ML) < 100 U Benzodiazepines Scrn (>200 NG/ML) < 85 Urine Cocaine Screen (>300 NG/ML) < 50 Urine Cannabis Screen (>50 NG/ML) > 80.00 H Diagnostic Data EKG Results Sinus rhythm with intermittent supraventricular tachycardia. Nonspecific ST and T-wave changes CXR Results Well-aerated lungs without focal consolidation. Assessment/Plan Assessment/Plan In summary this 66-year-old gentleman who was previously unknown to me was admitted with acute alcoholic withdrawal and transferred to the intensive care unit for Ativan drip. He was noted to have intermittent supraventricular tachycardia. His blood pressure is also elevated. I suspect both of this is related to hyper adrenergic state related to alcohol withdrawal. He does carry a history of hypertension. I would initiate metoprolol 5 mg IV every 8 hours, in the hope of decreasing his hyperadrenergic state and probably decreasing the chances of going into atrial fibrillation and supraventricular tachyarrhythmia. However Ativan drip will help both to decrease his agitation and therefore his hyperadrenergic state and also to decrease his blood pressure. Should the Ativan drip work I would probably hold metoprolol for heart rate less than 90 and a systolic blood pressure less than 130. I would also obtain an echocardiogram as a baseline to evaluate his left ventricular function. He carries a history of hypertension for which he already is on amlodipine. Will continue to follow his progress with you. Thank you for the opportunity of participating in his care Consult Acknowledgment - Thank you for your consult request.
--- NOTE | 2016-10-12 15:43 | ULTRASOUND REPORT ---
EXAMINATION: US ABDOMEN LIMITED CLINICAL INFORMATION: History of chronic EtOH abuse. Evaluate for cirrhosis and ascites.. COMPARISON: Abdominal ultrasound 02/09/2016 TECHNIQUE: Real-time imaging of the right upper quadrant abdominal viscera. FINDINGS: PANCREAS: The head and body appear unremarkable. The tail is obscured by overlying bowel gas. LIVER: The liver is enlarged measuring 18.0 cm. Demonstrates normal contour with diffusely increased echogenicity, unchanged. No focal lesion or intrahepatic biliary duct dilatation. GALLBLADDER: Normal. The gallbladder is physiologically distended without evidence of stones, sludge, polyps, wall thickening or pericholecystic fluid. COMMON BILE DUCT: Normal in caliber measuring 0.4 cm in diameter. RIGHT KIDNEY: Normal. No hydronephrosis. No renal calculi or focal parenchymal lesions. The kidney measures 12.3 cm in maximum dimension. FREE FLUID: None. IMPRESSION: Mild hepatomegaly. Diffusely increased liver echogenicity, unchanged compared to 2016. Findings can be seen with hepatic steatosis and/or chronic liver disease. No ascites.
[2016-10-12 19:06] LABS: ABSOLUTE BASOPHIL COUNT 0 /CUMM (0.0-0.2); ABSOLUTE EOSINOPHIL COUNT 0.1 /CUMM (0.0-0.7); ABSOLUTE GRANULOCYTE CT 3.5 /CUMM (1.4-6.5); ABSOLUTE LYMPH COUNT 0.9 /CUMM (1.2-3.4); ABSOLUTE MONOCYTE COUNT 0.7 /CUMM (0.10-0.60); BASOPHIL % 0.3 % (0.0-2.0); EOSINOPHIL % 2.3 % (0-5); GRANULOCYTE % 66.7 % (42.2-75.2); HEMATOCRIT 40.6 % (42-52); MEAN CORPUSCULAR HGB 32.8 PG (27.0-31.0); MEAN CORPUSCULAR HGB CONC 34.2 G/DL (33.0-37.0); MEAN CORPUSCULAR VOLUME 95.9 FL (80.0-94.0); MEAN PLATELET VOLUME 7.8 FL (7.4-10.4); PLATELET COUNT 101 /CUMM (130-400); RBC DISTRIBUTION WIDTH 13.4 % (11.5-14.5); RED BLOOD CELL CT 4.24 /CUMM (4.70-6.10); WHITE BLOOD CELL COUNT 5.2 /CUMM (4.8-10.8)
--- NOTE | 2016-10-12 21:29 | ECHOCARDIOGRAM REPORT ---
FLO WOODWARD Age: 66 : 1950 Gender: M Exam Date: 10/12/2016 11:35 Exam Location: [facility] Ht (in): 72 Wt (lb): 211 BSA: 2.22 BP: 131 / 78 Ordering Physician: RONALD ANGELA MD Referring Physician: RONALD ANGELA MD Technologist: Rio Dupree YOLA Room Number: 111 Indications: CARDIOMYOPATHY Rhythm: Sinus Technical Quality: poor FINDINGS Left Ventricle Normal global left ventricular size, wall thickness, systolic function with no obvious regional wall motion abnormalities. Normal left ventricular ejection fraction estimated at 60-65%. Right Ventricle Normal right ventricular size and function. Right Atrium Normal right atrial size. Left Atrium Normal left atrial size. Mitral Valve Mitral valve normal in structure and function. Trace mitral regurgitation. Aortic Valve Aortic valve is normal in structure and function. Tricuspid Valve Tricuspid valve is normal in structure and function. Trace to mild tricuspid regurgitation. Pulmonic Valve Pulmonic valve not well visualized, grossly normal. Pericardium No pericardial effusion. Great Vessels Normal size aortic root. CONCLUSIONS Normal left and right ventricular systolic function. No significant valvular abnormalities. Jon Shepherd M.D. (Electronically Signed) Final Date: 12 October 2016 21:28 MEASUREMENTS (Male / Female) Normal Values 2D ECHO LV Diastolic Diameter PLAX 5.1 cm 4.2 - 5.9 / 3.9 - 5.3 cm LV Systolic Diameter PLAX 3.1 cm 2.1 - 4.0 cm LV Fractional Shortening PLAX 39.2 % 25 - 46 % LV Ejection Fraction 2D Teich 69.4 % IVS Diastolic Thickness 1.1 cm LVPW Diastolic Thickness 1.1 cm LV Relative Wall Thickness 0.4 RV Internal Dim ED PLAX 3.8 cm 1.9 - 3.8 cm LVOT Diameter 2.0 cm Aortic Root Diameter 3.4 cm LA Systolic Diameter LX 3.5 cm 3.0 - 4.0 / 2.7 - 3.8 cm LA Volume 30.0 cm 18 - 58 / 22 - 52 cm Ascending Aorta Diameter 3.4 cm DOPPLER AV Peak Velocity 125.0 cm/s AV Peak Gradient 6.3 mmHg AV Mean Velocity 81.9 cm/s AV Mean Gradient 3.0 mmHg AV Velocity Time Integral 23.3 cm LVOT Peak Velocity 104.0 cm/s LVOT Peak Gradient 4.3 mmHg LVOT Mean Velocity 62.1 cm/s LVOT Mean Gradient 2.0 mmHg LVOT Velocity Time Integral 23.1 cm LVOT Stroke Volume 72.6 cm AV Area Cont Eq vti 3.1 cm AV Area Cont Eq pk 2.6 cm MV Peak Velocity 102.0 cm/s MV Peak Gradient 4.2 mmHg MV Mean Velocity 61.7 cm/s MV Mean Gradient 2.0 mmHg Mitral E Point Velocity 47.9 cm/s Mitral A Point Velocity 83.9 cm/s Mitral E to A Ratio 0.6 MV PHT Velocity 74.7 cm/s MV Deceleration [place] 164.0 cm/s MV Pressure Half Time 136.6 ms MV Area PHT 1.6 cm MV Deceleration Time 271.0 ms PV Peak Velocity 88.2 cm/s PV Peak Gradient 3.1 mmHg PV Mean Velocity 55.3 cm/s PV Mean Gradient 1.0 mmHg PV Velocity Time Integral 14.5 cm LV E' Lateral Velocity 11.9 cm/s Mitral E to LV E' Lateral Ratio 4.0 LV E' Septal Velocity 8.0 cm/s Mitral E to LV E' Septal Ratio 6.0
[2016-10-13] VITALS (13 sets, daily range): BP systolic 116–148; BP diastolic 72–88
[2016-10-13 05:38] LABS: ABSOLUTE BASOPHIL COUNT 0 /CUMM (0.0-0.2); ABSOLUTE EOSINOPHIL COUNT 0.2 /CUMM (0.0-0.7); ABSOLUTE GRANULOCYTE CT 4.2 /CUMM (1.4-6.5); ABSOLUTE LYMPH COUNT 0.9 /CUMM (1.2-3.4); ABSOLUTE MONOCYTE COUNT 0.8 /CUMM (0.10-0.60); BASOPHIL % 0.5 % (0.0-2.0); EOSINOPHIL % 3.3 % (0-5); GRANULOCYTE % 68.9 % (42.2-75.2); HEMATOCRIT 42.1 % (42-52); MEAN CORPUSCULAR HGB 33.1 PG (27.0-31.0); MEAN CORPUSCULAR HGB CONC 34.5 G/DL (33.0-37.0); MEAN PLATELET VOLUME 7.9 FL (7.4-10.4); PLATELET COUNT 91 /CUMM (130-400); RBC DISTRIBUTION WIDTH 13.3 % (11.5-14.5); RED BLOOD CELL CT 4.38 /CUMM (4.70-6.10); WHITE BLOOD CELL COUNT 6.1 /CUMM (4.8-10.8)
--- NOTE | 2016-10-13 08:24 | PN- Resident CRCU ---
[facility] 0823: Subjective HPI/CRCU Issues: Afebrile, hemodynamically stable, heartrate WNL, and saturating well on room air. Patient looks lethargic and remain on 4X soft restraint nurse. No SVT was observed since yesterday. A current result was benign. Patient denies any current active complaints. No acute overnight events were reported. Objective Vital Signs & I&O Last 8 Hrs of Vitals and I&O: Vital Signs Date Time Temp Pulse Resp B/P B/P Pulse O2 O2 Flow FiO2 Mean Ox Delivery Rate 10/13 1200 98.0 62 22 140/80 10/13 1200 94 Nasal 2.0L Cannula 10/13 1121 70 140/80 10/13 1100 98.0 70 20 148/86 10/13 1000 97.9 64 22 119/73 10/13 0800 97.4 84 22 120/80 10/13 0800 94 Nasal 2.0L Cannula 10/13 0800 97.4 84 22 120/80 95 Nasal 2.0L Cannula 10/13 0600 97.9 74 16 130/82 10/13 0600 97.9 74 16 130/82 10/13 0400 66 20 116/72 10/13 0400 96 Nasal 2.0L Cannula 10/13 0200 66 20 117/72 10/13 0000 97.7 84 24 140/88 10/13 0000 96 Nasal 2.0L Cannula 10/13 0000 97.7 84 24 140/88 96 Nasal 2.0L Cannula 10/12 2200 72 22 167/110 10/12 2157 78 18 161/83 10/12 2000 98.0 72 18 135/86 10/12 1800 62 16 136/80 10/12 1600 97.2 64 18 130/80 10/12 1600 98 Nasal 2.0L Cannula 10/12 1600 97.2 64 18 130/60 98 Nasal 2.0L Cannula 10/12 1421 68 117/74 10/12 1400 68 17 119/74 Intake & Output 10/13 1600 10/13 0800 10/13 0000 Intake Total 738 1570 Output Total 700 300 Balance 38 1270 Intake, IV 558 1210 Intake, Oral 180 360 Number 0 Bowel Movements Output, Urine 700 300 Exam General Appearance: alert, awake, anxious, lethargic Head: atraumatic, normal appearance, active bleeding Respiratory: normal breath sounds, chest non-tender, no respiratory distress, quiet respiration, lungs clear Cardiovascular: regular rate/rhythm Gastrointestinal: normal bowel sounds, soft, non-tender, no organomegaly Extremities: normal inspection, no edema Current Medications: Current Medications Sig/Will Start time Last Medication Dose Route Stop Time Status Admin Acetaminophen 650 MG Q6P PRN 10/11 2230 AC PO Amlodipine Besylate 10 MG DAILY 10/12 1000 AC 10/13 PO 1121 Chlordiazepoxide HCl 50 MG Q6 10/13 1200 AC 10/13 PO 1121 Chlordiazepoxide HCl 25 MG TID 10/13 1000 DC PO Cyclobenzaprine HCl 5 MG BID 10/11 2239 AC 10/13 PO 1041 Folic Acid 1 MG DAILY 10/12 1000 AC 10/13 PO 10/14 1001 1040 Haloperidol 1 MG ONCE PRN 10/12 1300 AC IM Hydromorphone HCl 0.5 MG Q4P PRN 10/11 2230 AC 10/12 IV 1218 Lorazepam 100 MG Q12H 10/13 1200 AC Sodium Chloride 1,000 ML IV Lorazepam 100 MG Q13H 10/12 2359 DC 10/12 Sodium Chloride 1,000 ML IV 2355 Lorazepam 2 MG ONCE ONE 10/12 2330 DC 10/12 IV 10/12 2331 2336 Lorazepam 100 MG CONTINOUS INFUSION 10/12 0945 DC Sodium Chloride 1,000 ML IV Magnesium Sulfate 1 GM Q2H 10/12 1045 DC 10/12 Dextrose/Water 100 ML IV 10/12 1444 1315 Metoprolol Tartrate 2.5 MG Q8 10/12 1400 AC 10/12 IV 2157 Metoprolol Tartrate 5 MG Q8 10/12 0924 DC 10/12 IV 0937 Multivitamins 1 TAB DAILY 10/12 1000 AC 10/13 PO 1040 Ondansetron HCl 4 MG Q6P PRN 10/11 2345 AC IV Oxycodone HCl 5 MG Q6P PRN 10/11 2300 AC PO Polyethylene Glycol 17 GM AT BEDTIME 10/12 2200 AC 10/12 PO 2158 Potassium Chloride 40 MEQ ONCE ONE 10/12 2345 DC 10/13 PO 10/12 2346 0002 Senna/Docusate Sodium 2 TAB AT BEDTIME 10/12 2200 AC 10/12 PO 2158 Sodium Chloride 1,000 ML Q13H 10/12 1215 DC 10/12 IV 1316 Thiamine HCl 250 MG DAILY 10/14 1000 AC Sodium Chloride 100 ML IV 10/18 1030 Thiamine HCl 500 MG TID 10/12 1100 AC 10/13 Sodium Chloride 100 ML IV 10/13 2231 1040 Impression/Plan Impression/Problem List Impression: Mr. Christianson is 66 year old male with past medical history of alcohol dependence, hypertension, transaminitis who presented to ED requesting alcohol detox. In ED , patient developed 2 episodes of nonsustained asymptomatic SVT that resolved spontaneous without interventions. 1. EtOH withdrawal/delirium tremens. Patient needed Ativan drip, for that reason he was transferred to the ICU unit. This morning patient is on 8 mg/h. 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 * Continue multivitamin and folic acid daily * Zofran for nausea when necessary 2. Supraventricular tachycardia, nonsustained, likely related to EtOH withdrawal. * ACS was ruled out. * Echocardiogram shows no abnormalities with EF of 60-65% * Replete electrolytes as necessary * Continue metoprolol to 2.5 mg IV every 8 3. Transaminitis due to EtOH. Liver ultrasound: Shows Mild hepatomegaly. Diffusely increased liver echogenicity, unchanged compared to 2016. Findings can be seen with hepatic steatosis and/or chronic liver disease. No ascites. * Repeat ICU bundle daily 4. Thrombocytopenia * Most likely secondary to alcohol * Patient did not receive any heparin * Repeat CBCs daily Nothing by mouth DVT ALPS Full code Problem List: 1. Alcohol abuse 2. Alcohol withdrawal 3. Alcohol intoxication Pain Ratin Tomorrow's Labs & Rationales: CBCs and ICU bundle Plan DVT/Prophylaxis: PAVAN Rueda MD 10/13/16 1008: Attending MD Review Statement Attending Sign Off Attending Cosign Statement: I have: examined this patient, reviewed aval EMR data, personally reviewd images, discussd w/resident/PA/OIL HOUSE ATTENDANT, discussed mgmt plan w/vero, discussed mgmt plan w/CM, discussed mgmt plan w/pt, agreed w/resident/PA/OIL HOUSE ATTENDANT, amended to note. Other Findings: Pavan Carey M.D. have examined this patient, reviewed available EMR data, personally reviewed images, discussed with resident/PA/OIL HOUSE ATTENDANT, discussed management plan with housestaff and nursing staff, discussed managment plan all of healthcare providers, discussed management plan with patient and/or family, agreed with resident/PA/OIL HOUSE ATTENDANT. The past history and parts of the chart have been autopopulated. 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
--- NOTE | 2016-10-13 11:14 | PN- Cardiology ---
Subjective Subjective: Patient is lethargic. Currently in restraints. Objective Vital Signs and I&Os Vital Signs Date Time Temp Pulse Resp B/P B/P Pulse O2 O2 Flow FiO2 Mean Ox Delivery Rate 10/13 0800 97.4 84 22 120/80 10/13 0800 94 Nasal 2.0L Cannula 10/13 0800 97.4 84 22 120/80 95 Nasal 2.0L Cannula 10/13 0600 97.9 74 16 130/82 10/13 0600 97.9 74 16 130/82 10/13 0400 66 20 116/72 10/13 0400 96 Nasal 2.0L Cannula 10/13 0200 66 20 117/72 10/13 0000 97.7 84 24 140/88 10/13 0000 96 Nasal 2.0L Cannula 10/13 0000 97.7 84 24 140/88 96 Nasal 2.0L Cannula 10/12 2200 72 22 167/110 10/12 2157 78 18 161/83 10/12 2000 98.0 72 18 135/86 10/12 1800 62 16 136/80 10/12 1600 97.2 64 18 130/80 10/12 1600 98 Nasal 2.0L Cannula 10/12 1600 97.2 64 18 130/60 98 Nasal 2.0L Cannula 10/12 1421 68 117/74 10/12 1400 68 17 119/74 10/12 1200 98.8 92 29 180/90 10/12 1200 96 Nasal 2.0L Cannula Intake & Output 10/13 1600 10/13 0800 10/13 0000 10/12 1600 10/12 0800 10/12 0000 Intake Total 738 1570 1080 1000 Output Total 700 300 800 Balance 38 1270 1080 200 Intake, IV 558 7214 038 9698 Intake, Oral 180 360 120 0 Number 0 0 Bowel Movements Output, Urine 700 300 800 Patient 211 lb Weight Physical Exam: General: no apparent distress. Lethargic Eyes: No obvious scleral icterus. HEENT: No jugular venous distention or abnormal jugular venous pulsations. Cardiovascular: Normal intensity S1/S2. Regular. Respiratory: No rales or rhonchi Abdomen: no guarding or rebound tenderness. Musculoskeletal: No clubbing or cyanosis noted, no edema Skin: warm Neurologic: Lethargic Lymph: No gross lymphadenopathy. Current Medications: Current Medications Sig/Will Start time Last Medication Dose Route Stop Time Status Admin Acetaminophen 650 MG Q6P PRN 10/11 2230 AC PO Amlodipine Besylate 10 MG DAILY 10/12 1000 AC 10/12 PO 0208 Chlordiazepoxide HCl 50 MG Q6 10/13 1200 AC PO Chlordiazepoxide HCl 25 MG TID 10/13 1000 DC PO Cyanocobalamin/ 1 BAG DAILY 10/13 1000 CAN Thiamine/Pyridoxine IV 10/13 1759 Sodium Chloride 1,000 ML Cyclobenzaprine HCl 5 MG BID 10/11 2239 AC 10/13 PO 1041 Folic Acid 1 MG DAILY 10/12 1000 AC 10/13 PO 10/14 1001 1040 Haloperidol 1 MG ONCE PRN 10/12 1300 AC IM Hydromorphone HCl 0.5 MG Q4P PRN 10/11 2230 AC 10/12 IV 1218 Lorazepam 100 MG Q12H 10/13 1200 AC Sodium Chloride 1,000 ML IV Lorazepam 100 MG Q13H 10/12 2359 DC 10/12 Sodium Chloride 1,000 ML IV 2355 Lorazepam 2 MG ONCE ONE 10/12 2330 DC 10/12 IV 10/12 2331 2336 Lorazepam 100 MG CONTINOUS INFUSION 10/12 0945 DC Sodium Chloride 1,000 ML IV Magnesium Sulfate 1 GM Q2H 10/12 1045 DC 10/12 Dextrose/Water 100 ML IV 10/12 1444 1315 Metoprolol Tartrate 2.5 MG Q8 10/12 1400 AC 10/12 IV 2157 Metoprolol Tartrate 5 MG Q8 10/12 0924 DC 10/12 IV 0937 Multivitamins 1 TAB DAILY 10/12 1000 AC 10/13 PO 1040 Ondansetron HCl 4 MG Q6P PRN 10/11 2345 AC IV Oxycodone HCl 5 MG Q6P PRN 10/11 2300 AC PO Polyethylene Glycol 17 GM AT BEDTIME 10/12 2200 AC 10/12 PO 2158 Potassium Chloride 40 MEQ ONCE ONE 10/12 2345 DC 10/13 PO 10/12 2346 0002 Potassium Chloride 10 MEQ Q1H 10/12 1045 DC 10/12 IV 10/12 1146 1530 Senna/Docusate Sodium 2 TAB AT BEDTIME 10/12 2200 AC 10/12 PO 2158 Sodium Chloride 1,000 ML Q13H 10/12 1215 DC 10/12 IV 1316 Thiamine HCl 250 MG DAILY 07/01 1000 AC Sodium Chloride 100 ML IV 10/18 1030 Thiamine HCl 500 MG TID 10/12 1100 AC 10/13 Sodium Chloride 100 ML IV 10/13 2231 1040 Results Last 48 Hrs of Labs/Mics: Laboratory Tests 10/13/16 0520: Anion Gap 10, Estimated GFR > 60, Glucose 97, Calcium 8.8, Phosphorus 3.0, Magnesium 2.2, Total Bilirubin 2.4 H, AST 123 H, ALT 140 H, Albumin 4.0, CBC w Diff NO MAN DIFF REQ, RBC 4.38 L, MCV 96.0 H, MCH 33.1 H, RDW 13.3, MPV 7.9 , Gran % 68.9, Lymphocytes % 14.8 L, Monocytes % 12.5 H, Eosinophils % 3.3, Basophils % 0.5, Absolute Granulocytes 4.2, Absolute Lymphocytes 0.9 L, Absolute Monocytes 0.8 H, Absolute Eosinophils 0.2, Absolute Basophils 0, PUBS MCHC 34.5 10/12/16 1810: Anion Gap 7, Estimated GFR > 60, Glucose 85, Calcium 8.5, Phosphorus 3.6, Magnesium 2.6 H, Total Bilirubin 2.2 H, AST 127 H, ALT 141 H, Albumin 3.9, CBC w Diff NO MAN DIFF REQ, RBC 4.24 L, MCV 95.9 H, MCH 32.8 H, RDW 13.4, MPV 7.8, Gran % 66.7, Lymphocytes % 16.9 L, Monocytes % 13.8 H, Eosinophils % 2.3, Basophils % 0.3, Absolute Granulocytes 3.5, Absolute Lymphocytes 0.9 L, Absolute Monocytes 0.7 H, Absolute Eosinophils 0.1, Absolute Basophils 0, PUBS MCHC 34.2 10/12/16 1400: Sodium Cancelled, Potassium Cancelled, Chloride Cancelled, Carbon Dioxide Cancelled, Anion Gap Cancelled, BUN Cancelled, Creatinine Cancelled, Glucose Cancelled, Calcium Cancelled, Phosphorus Cancelled, Magnesium Cancelled, Total Bilirubin Cancelled, AST Cancelled, ALT Cancelled, Albumin Cancelled, CBC w Diff Cancelled, WBC Cancelled, RBC Cancelled, Hgb Cancelled, Hct Cancelled, MCV Cancelled, MCH Cancelled, RDW Cancelled, Plt Count Cancelled, MPV Cancelled, PUBS MCHC Cancelled 10/12/16 1034: Troponin I 0.02 10/12/16 0658: Ammonia 28 10/12/16 0658: Anion Gap 12, Estimated GFR > 60, BUN/Creatinine Ratio 14.3, Hemoglobin A1c 5.6, Phosphorus 3.0, Magnesium 1.7, Total Bilirubin 2.4 H, Direct Bilirubin 0.5 H, AST 157 H, ALT 175 H, Alkaline Phosphatase 89, Troponin I 0.03, Total Protein 7.3, Albumin 4.8, PT 11.4, INR 1.09 10/11/16 2330: Phosphorus 3.8, Magnesium 1.6, Troponin I 0.03 10/11/16 1446: Anion Gap 14, Estimated GFR > 60, BUN/Creatinine Ratio 12.5, Glucose 115 H, Calcium 8.8, Total Bilirubin 1.0, AST 175 H, ALT 180 H, Alkaline Phosphatase 79, Total Protein 7.1, Albumin 4.5, Globulin 2.6, Albumin/Globulin Ratio 1.7, CBC w Diff NO MAN DIFF REQ, RBC 4.44 L, MCV 94.4 H, MCH 33.0 H, RDW 12.7, MPV 7.2 L, Gran % 58.7, Lymphocytes % 25.6, Monocytes % 14.7 H, Eosinophils % 0.8, Basophils % 0.2, Absolute Granulocytes 2.4, Absolute Lymphocytes 1.0 L, Absolute Monocytes 0.6, Absolute Eosinophils 0, Absolute Basophils 0, PUBS MCHC 35.0, Serum Alcohol 231.0 10/11/16 1439: Urine Opiates Screen < 100.00, Methadone Screen < 40, Barbiturate Screen < 60, Ur Phencyclidine Scrn < 6.00, Amphetamines Screen < 100, U Benzodiazepines Scrn < 85, Urine Cocaine Screen < 50, Urine Cannabis Screen > 80.00 H Recent Imaging Studies: Telemetry tracings were personally reviewed and shows sinus rhythm with a ventricular triplet noted Abdominal ultrasound IMPRESSION: Mild hepatomegaly. Diffusely increased liver echogenicity, unchanged compared to 2016. Findings can be seen with hepatic steatosis and/or chronic liver disease. No ascites. Echocardiogram CONCLUSIONS Normal left and right ventricular systolic function. No significant valvular abnormalities. Jon Shepherd M.D. (Electronically Signed) Final Date: 12 October 2016 21:28 Assessment/Plan Assessment/Plan 1. EtOH abuse 2. EtOH withdrawal 3. Paroxysmal supraventricular tachycardia 4. History of hypertension 5. Abnormal LFTs Patient's currently lethargic and remains in soft restraints. Telemetry review shows no recurrence of the SVT. His echocardiogram fortunately shows that he does not have evidence of alcohol induced cardiomyopathy. Continue treatment for acute alcohol withdrawal and continue the IV Lopressor. When able to take by mouth more consistently this can be transitioned to oral Lopressor. Would maintain on telemetry for the time being. Leonel Camacho MD [facility] Continue telemetry? Yes
[2016-10-14] VITALS (14 sets, daily range): BP systolic 118–162; BP diastolic 66–95
[2016-10-14 05:40] LABS: ABSOLUTE BASOPHIL COUNT 0 /CUMM (0.0-0.2); ABSOLUTE EOSINOPHIL COUNT 0.2 /CUMM (0.0-0.7); ABSOLUTE LYMPH COUNT 0.9 /CUMM (1.2-3.4); ABSOLUTE MONOCYTE COUNT 0.8 /CUMM (0.10-0.60); BASOPHIL % 0.2 % (0.0-2.0); EOSINOPHIL % 2.6 % (0-5); GRANULOCYTE % 72.5 % (42.2-75.2); HEMATOCRIT 40.4 % (42-52); MEAN CORPUSCULAR HGB CONC 34.2 G/DL (33.0-37.0); MEAN CORPUSCULAR VOLUME 96.5 FL (80.0-94.0); MEAN PLATELET VOLUME 8.3 FL (7.4-10.4); PLATELET COUNT 96 /CUMM (130-400); RBC DISTRIBUTION WIDTH 12.9 % (11.5-14.5); RED BLOOD CELL CT 4.19 /CUMM (4.70-6.10); WHITE BLOOD CELL COUNT 6.8 /CUMM (4.8-10.8)
--- NOTE | 2016-10-14 10:12 | PN- CRCU ---
CHERYL TERRAZAS,BRENDA 10/14/16 1012: Subjective HPI/Critical Care Issues: Patient is Afebrile, hemodynamically stable and saturating well on room air. Alert, oriented X2 to Place, lethargic on B/L upper soft restraints. No active complaints. No overnight events. No further SVT episodes. Objective Current Medications: Current Medications Sig/Will Start time Last Medication Dose Route Stop Time Status Admin Acetaminophen 650 MG Q6P PRN 10/11 2230 AC PO Amlodipine Besylate 10 MG DAILY 10/12 1000 AC 10/14 PO 0841 Chlordiazepoxide HCl 50 MG Q6 10/13 1200 AC 10/14 PO 0618 Cyclobenzaprine HCl 5 MG BID 10/11 2239 AC 10/14 PO 0839 Folic Acid 1 MG DAILY 10/12 1000 DC 10/14 PO 10/14 1001 0840 Haloperidol 1 MG ONCE PRN 10/12 1300 AC IM Hydromorphone HCl 0.5 MG Q4P PRN 10/11 2230 AC 10/12 IV 1218 Lorazepam 100 MG Q12H 10/13 1200 AC 10/14 Sodium Chloride 1,000 ML IV 0330 Metoprolol Tartrate 6.25 MG BID 10/13 2200 AC 10/14 PO 0841 Metoprolol Tartrate 2.5 MG Q8 10/12 1400 DC 10/12 IV 2157 Multivitamins 1 TAB DAILY 10/12 1000 AC 10/14 PO 0842 Ondansetron HCl 4 MG Q6P PRN 10/11 2345 AC IV Oxycodone HCl 5 MG Q6P PRN 10/11 2300 AC PO Polyethylene Glycol 17 GM AT BEDTIME 10/12 2200 AC 10/13 PO 2130 Senna/Docusate Sodium 2 TAB AT BEDTIME 10/12 2200 AC 10/13 PO 2129 Thiamine HCl 250 MG DAILY 10/14 1000 AC 10/14 Sodium Chloride 100 ML IV 10/18 1030 0853 Thiamine HCl 500 MG TID 10/12 1100 DC 10/13 Sodium Chloride 100 ML IV 10/13 223 2135 Vital Signs & I&O Last 24 Hrs of Vitals and I&O: Vital Signs Date Time Temp Pulse Resp B/P B/P Pulse O2 O2 Flow FiO2 Mean Ox Delivery Rate 10/14 1000 72 26 153/94 10/14 0841 82 142/81 10/14 0841 77 142/81 10/14 0800 96 Nasal 2.0L Cannula 10/14 0757 98.5 71 22 130/80 95 Nasal 2.0L Cannula 10/14 0752 98.5 71 22 130/80 / 0600 80 18 136/79 07 0400 98.2 71 27 118/66 10/14 0400 96 Nasal 2.0L Cannula 10/14 0200 89 21 159/95 07 0000 99.9 76 22 142/74 07 0000 96 Nasal 2.0L Cannula 10/13 2300 99.9 76 22 142/74 96 Nasal 2.0L Cannula 10/13 2200 75 20 130/83 10/13 2130 85 20 174/93 10/14 1999 97.9 72 19 140/74 10/13 2000 97 Nasal 2.0L Cannula 10/13 1800 98.0 70 18 140/80 10/13 1600 98.0 70 18 140/80 10/13 1600 95 Nasal 2.0L Cannula 10/13 1600 98.0 70 18 140/80 95 Nasal 2.0L Cannula 10/13 1200 98.0 62 22 140/80 10/13 1200 94 Nasal 2.0L Cannula Intake & Output 10/14 1600 10/14 0800 07 0000 Intake Total 715 1089 Output Total 200 Balance 715 889 Intake, IV 535 769 Intake, Oral 180 320 Number 0 0 Bowel Movements Output, Urine 200 Exam General Appearance: alert, lethargic Head: atraumatic, normal appearance Respiratory: normal breath sounds, chest non-tender, no respiratory distress, lungs clear, wheezing Cardiovascular: regular rate/rhythm Abdomen: normal bowel sounds, soft, non-tender, no organomegaly Extremities: normal inspection, no edema Results Last 24 Hrs of Lab Results: Laboratory Tests 10/14/16 0417: Anion Gap 9, Estimated GFR > 60, Glucose 94, Calcium 8.6, Phosphorus 2.8, Magnesium 2.1, Total Bilirubin 1.8 H, AST 98 H, ALT 119 H, Albumin 3.6, CBC w Diff NO MAN DIFF REQ, RBC 4.19 L, MCV 96.5 H, MCH 33.0 H, RDW 12.9, MPV 8.3, Gran % 72.5, Lymphocytes % 13.0 L, Monocytes % 11.7 H, Eosinophils % 2.6, Basophils % 0.2, Absolute Granulocytes 5.0, Absolute Lymphocytes 0.9 L, Absolute Monocytes 0.8 H, Absolute Eosinophils 0.2, Absolute Basophils 0, PUBS MCHC 34.2 Impression/Plan Impression/Plan Impression/Plan: Mr. baxter 66-year-old gentleman with past medical history of alcohol dependence, hypertension, transaminitis presented to ED requesting alcohol detox. In ED patient developed 2 episodes of nonsustained supraventricular tachycardia which resolved spontaneously without any intervention 1. EtOH withdrawal/delirium tremens. patient is on 3 mg/h. 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 Supraventricular tachycardia, nonsustained, likely related to EtOH withdrawal. * Seen by medical records administrator, since no recurrence of SVT advised to continue treatment for alcohol withdrawal and continue Lopressor * Echocardiogram shows no abnormalities with EF of 60-65% * Replete electrolytes as necessary 3. Transaminitis due to EtOH. Liver ultrasound: Shows Mild hepatomegaly. Diffusely increased liver echogenicity, unchanged compared to 2016. Findings can be seen with hepatic steatosis and/or chronic liver disease. No ascites. * Repeat ICU bundle daily 4. Thrombocytopenia * Most likely secondary to alcohol * Repeat CBCs daily DVT ALPS Full code PAVAN FOY MD 10/14/16 1110: Impression/Plan Impression/Plan Recommendations: Pavan Carey M.D. have examined this patient, reviewed available EMR data, personally reviewed images, discussed with resident/PA/SUPERVISOR RECORD PRESS, discussed management plan with housestaff and nursing staff, discussed managment plan all of healthcare providers, discussed management plan with patient and/or family, agreed with resident/PA/SUPERVISOR RECORD PRESS. The past history and parts of the chart have been autopopulated. 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
[2016-10-15] VITALS (11 sets, daily range): BP systolic 132–153; BP diastolic 60–96
[2016-10-15 05:05] LABS: ABSOLUTE BASOPHIL COUNT 0 /CUMM (0.0-0.2); ABSOLUTE EOSINOPHIL COUNT 0.2 /CUMM (0.0-0.7); ABSOLUTE GRANULOCYTE CT 4.1 /CUMM (1.4-6.5); ABSOLUTE MONOCYTE COUNT 0.8 /CUMM (0.10-0.60); BASOPHIL % 0.2 % (0.0-2.0); EOSINOPHIL % 3.7 % (0-5); GRANULOCYTE % 67.3 % (42.2-75.2); MEAN CORPUSCULAR HGB 33.2 PG (27.0-31.0); MEAN CORPUSCULAR HGB CONC 34.2 G/DL (33.0-37.0); MEAN CORPUSCULAR VOLUME 97.1 FL (80.0-94.0); MEAN PLATELET VOLUME 8.3 FL (7.4-10.4); PLATELET COUNT 102 /CUMM (130-400); RBC DISTRIBUTION WIDTH 13.1 % (11.5-14.5); RED BLOOD CELL CT 4.12 /CUMM (4.70-6.10); WHITE BLOOD CELL COUNT 6.1 /CUMM (4.8-10.8)
--- NOTE | 2016-10-15 08:07 | Event Note ---
Event Note Event Note: Patient had fever 100.9 and cultures were drawn. Patient had 12 beat run of NSVT at 2245pm 10/14/16, patient was asymptomatic with normal electrolytes. Pt was continuously monitored and there were no further arrhythmias overnight. Potassium was repleted this morning. Patient is requiring increasing dosing rate of ativan gtt for sedation.
--- NOTE | 2016-10-15 08:29 | PN- CRCU ---
Subjective HPI/Critical Care Issues: pt seen and examined tachyarrhythmia overnight increased ativan requirements Objective Current Medications: Current Medications Sig/Will Start time Last Medication Dose Route Stop Time Status Admin Acetaminophen 650 MG ONCE ONE 10/15 1999 DC 10/14 PO 10/14 Acetaminophen 650 MG Q6P PRN 10/11 2230 AC PO Amlodipine Besylate 10 MG DAILY 10/12 1000 AC 10/14 PO 0841 Chlordiazepoxide HCl 75 MG Q6 10/14 2359 AC 10/15 PO 0519 Chlordiazepoxide HCl 75 MG ONCE ONE 10/14 1845 DC 10/14 PO 10/14 1846 1839 Chlordiazepoxide HCl 50 MG Q6 10/13 1200 DC 10/14 PO 1223 Cyclobenzaprine HCl 5 MG BID 10/11 2239 AC 10/14 PO 2248 Folic Acid 1 MG DAILY 10/12 1000 DC 10/14 PO 10/14 1001 0840 Haloperidol 1 MG ONCE PRN 10/12 1300 AC IM Hydromorphone HCl 0.5 MG Q4P PRN 10/11 2230 AC 10/12 IV 1218 Lorazepam 2 MG ONCE ONE 10/14 1515 DC 10/14 IV 10/14 1516 1509 Lorazepam 100 MG Q12H 10/13 1200 AC 10/14 Sodium Chloride 1,000 ML IV 2200 Metoprolol Tartrate 6.25 MG BID 10/13 220 AC 10/14 PO 2249 Multivitamins 1 TAB DAILY 10/12 1000 AC 10/14 PO 0842 Ondansetron HCl 4 MG Q6P PRN 10/11 2345 AC IV Oxycodone HCl 5 MG Q6P PRN 10/11 2300 AC PO Phosphate 250 MG ONCE ONE 10/14 1200 DC 10/14 PO 10/14 1201 1237 Polyethylene Glycol 17 GM AT BEDTIME 10/12 2200 AC 10/13 PO 2130 Potassium Chloride 40 MEQ ONCE ONE 10/15 0530 DC 10/15 PO 10/15 0531 0533 Senna/Docusate Sodium 2 TAB AT BEDTIME 10/12 220 AC 10/13 PO 2129 Thiamine HCl 250 MG DAILY 10/14 1000 AC 10/14 Sodium Chloride 100 ML IV 10/18 1030 0853 Vital Signs & I&O Last 24 Hrs of Vitals and I&O: Vital Signs Date Time Temp Pulse Resp B/P B/P Pulse O2 O2 Flow FiO2 Mean Ox Delivery Rate 10/15 0600 80 26 148/96 07 0400 97.2 78 26 136/80 07 0400 97 Nasal 2.0L Cannula 10/15 0200 68 22 153/77 07/ 0000 97.8 67 22 138/60 07/ 0000 98 Nasal 2.0L Cannula 10/15 0000 997.8 67 22 138/60 98 Nasal 2.0L Cannula 10/14 2254 99.3 10/14 2249 99.3 68 18 141/82 10/14 2200 99.3 68 18 141/82 10/14 2027 100.7 10/15 1999 100.9 68 18 130/70 10/14 2000 98 Nasal 2.0L Cannula 10/14 1800 72 20 120/70 10/14 1700 74 18 134/74 07 1600 98.0 64 18 162/74 10/14 1600 96 Nasal 2.0L Cannula 10/14 1600 98.0 64 18 146/70 96 Nasal 2.0L Cannula 10/14 1400 72 18 133/70 10/14 1200 97.6 67 24 139/79 10/14 1200 97 Nasal 2.0L Cannula 10/14 1000 72 26 153/94 07 0841 82 142/81 07 0841 77 142/81 Intake & Output 10/15 1600 /02 0800 10/15 0000 Intake Total 732 760 Output Total 500 200 Balance 232 560 Intake, IV 532 400 Intake, Oral 200 360 Number 2 Bowel Movements Output, Urine 500 200 Exam Other Physical Findings: gen sedated but arousable heent ncat cvs s1, s2 lungs reduced at bases abd soft bs+ ext without edema Results Last 24 Hrs of Lab Results: Laboratory Tests 10/15/16 0322: Anion Gap 10, Estimated GFR > 60, Glucose 77, Calcium 8.6, Phosphorus 3.1, Magnesium 2.1, Total Bilirubin 1.9 H, AST 77 H, ALT 108 H, Albumin 3.5, CBC w Diff NO MAN DIFF REQ, RBC 4.12 L, MCV 97.1 H, MCH 33.2 H, RDW 13.1, MPV 8.3, Gran % 67.3, Lymphocytes % 16.0 L, Monocytes % 12.8 H, Eosinophils % 3.7, Basophils % 0.2, Absolute Granulocytes 4.1, Absolute Lymphocytes 1.0 L, Absolute Monocytes 0.8 H, Absolute Eosinophils 0.2, Absolute Basophils 0, PUBS MCHC 34.2 Impression/Plan Impression/Plan Impression/Plan: Pavan Carey M.D. have examined this patient, reviewed available EMR data, personally reviewed images, discussed with resident/PA/EXCEPTIONAL CHILDREN'S TEACHER, discussed management plan with housestaff and nursing staff, discussed managment plan all of healthcare providers, discussed management plan with patient and/or family, agreed with resident/PA/EXCEPTIONAL CHILDREN'S TEACHER. The past history and parts of the chart have been autopopulated. 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
--- NOTE | 2016-10-15 10:24 | PN- CRCU ---
Subjective HPI/Critical Care Issues: I saw the patient at bedside. He is afebrile, hemodynamically stable and saturating well on room air. alert, oriented x2. no active complaints. One episode of nonsustained SVT around 10 PM yesterday. Asympatomatic.Had 3 episodes of loose stools since yesterday evening, c diff ordered Objective Current Medications: Current Medications Sig/Will Start time Last Medication Dose Route Stop Time Status Admin Acetaminophen 650 MG ONCE ONE 10/15 1999 DC 10/14 PO 10/14 Acetaminophen 650 MG Q6P PRN 10/11 2230 AC PO Amlodipine Besylate 10 MG DAILY 10/12 1000 AC 10/14 PO 0841 Chlordiazepoxide HCl 75 MG Q6 10/14 2359 AC 10/15 PO 0519 Chlordiazepoxide HCl 75 MG ONCE ONE 10/14 1845 DC 10/14 PO 10/14 1846 1839 Chlordiazepoxide HCl 50 MG Q6 10/13 1200 DC 10/14 PO 1223 Cyclobenzaprine HCl 5 MG BID 10/11 2239 AC 10/15 PO 1007 Haloperidol 1 MG ONCE PRN 10/12 1300 AC IM Hydromorphone HCl 0.5 MG Q4P PRN 10/11 2230 AC 10/12 IV 1218 Lorazepam 2 MG ONCE ONE 10/14 1515 DC 10/14 IV 10/14 1516 1509 Lorazepam 100 MG Q12H 10/13 1200 AC 10/14 Sodium Chloride 1,000 ML IV 2200 Metoprolol Tartrate 6.25 MG BID 10/13 2200 AC 10/15 PO 1010 Multivitamins 1 TAB DAILY 10/12 1000 AC 10/15 PO 1009 Ondansetron HCl 4 MG Q6P PRN 10/11 2345 AC IV Oxycodone HCl 5 MG Q6P PRN 10/11 2300 AC PO Phosphate 250 MG ONCE ONE 10/14 1200 DC 10/14 PO 10/14 1201 1237 Polyethylene Glycol 17 GM AT BEDTIME 10/120 AC 10/13 PO 2130 Potassium Chloride 40 MEQ ONCE ONE 10/15 0530 DC 10/15 PO 10/15 0531 0533 Senna/Docusate Sodium 2 TAB AT BEDTIME 10/12 2200 AC 10/13 PO 2129 Thiamine HCl 250 MG DAILY 10/14 1000 AC 10/15 Sodium Chloride 100 ML IV 10/18 1030 1007 Vital Signs & I&O Last 24 Hrs of Vitals and I&O: Vital Signs Date Time Temp Pulse Resp B/P B/P Pulse O2 O2 Flow FiO2 Mean Ox Delivery Rate 10/15 1010 65 141/71 10/15 0600 80 26 148/96 07 0400 97.2 78 26 136/80 07 0400 97 Nasal 2.0L Cannula 10/15 0200 68 22 153/77 07/ 0000 97.8 67 22 138/60 07 0000 98 Nasal 2.0L Cannula 10/15 0000 997.8 67 22 138/60 98 Nasal 2.0L Cannula 10/14 2254 99.3 10/14 2249 99.3 68 18 141/82 10/14 2200 99.3 68 18 141/82 10/14 2027 100.7 10/14 2000 100.9 68 18 130/70 10/14 2000 98 Nasal 2.0L Cannula 10/14 1800 72 20 120/70 10/14 1700 74 18 134/74 10/14 1600 98.0 64 18 162/74 10/14 1600 96 Nasal 2.0L Cannula 10/14 1600 98.0 64 18 146/70 96 Nasal 2.0L Cannula 10/14 1400 72 18 133/70 10/14 1200 97.6 67 24 139/79 10/14 1200 97 Nasal 2.0L Cannula Intake & Output 10/15 1600 /02 0800 10/15 0000 Intake Total 732 760 Output Total 500 200 Balance 232 560 Intake, IV 532 400 Intake, Oral 200 360 Number 2 Bowel Movements Output, Urine 500 200 Exam General Appearance: well developed/nourished, no apparent distress, alert, awake , comfortable Head: atraumatic, normal appearance Ears, Nose, Throat: normal ENT inspection Neck: normal inspection, supple Respiratory: normal breath sounds Cardiovascular: regular rate/rhythm Abdomen: normal bowel sounds, no organomegaly, no tenderness. Back: multiple rashes seen. Extremities: normal inspection, normal capillary refill Neurologic/Psychiatric: no motor/sensory deficits, awake, alert Skin: intact, normal color Lymphatic: adenopathy Results Last 24 Hrs of Lab Results: Laboratory Tests 10/15/16 0322: Anion Gap 10, Estimated GFR > 60, Glucose 77, Calcium 8.6, Phosphorus 3.1, Magnesium 2.1, Total Bilirubin 1.9 H, AST 77 H, ALT 108 H, Albumin 3.5, CBC w Diff NO MAN DIFF REQ, RBC 4.12 L, MCV 97.1 H, MCH 33.2 H, RDW 13.1, MPV 8.3, Gran % 67.3, Lymphocytes % 16.0 L, Monocytes % 12.8 H, Eosinophils % 3.7, Basophils % 0.2, Absolute Granulocytes 4.1, Absolute Lymphocytes 1.0 L, Absolute Monocytes 0.8 H, Absolute Eosinophils 0.2, Absolute Basophils 0, PUBS MCHC 34.2 Diagnostic Data CXR Findings: ordered EKG Findings: Patient had 12 beat run of NSVT at 2245pm 10/14/16, patient was asymptomatic with normal electrolytes ECHO Findings: left ventricular ejection fraction estimated at 60-65% US Findings: Mild hepatomegaly. Diffusely increased liver echogenicity, unchanged compared to 2016. Findings can be seen with hepatic steatosis and/or chronic liver disease. No ascites. Impression/Plan Impression/Plan Impression/Plan: Mr. baxter 66-year-old gentleman with past medical history of alcohol dependence, hypertension, transaminitis presented to ED requesting alcohol detox. ICU DAY 3: * ON ATIVAN drip and thiamine. Patient spiked twice(temp-100.7) yesterday. cultures and chest x ray ordered. * One episode of nonsustained SVT around 10 PM. * Had 3 episodes of loose stools since yesterday evening, c diff ordered. PLAN: 1. EtOH withdrawal/delirium tremens. * patient is on 8 mg/h ativan, continue based on CIWA score. * Librium increased to 75 mg every Q6 because was seen more agitated requiring more ativan. * Thiamine 250 mg IV once daily in view of wernicke encephalopathy. * Continue aspiration and seizure precaution, heart healthy diet * Continue medical restraint as needed * Continue multivitamin and folic acid daily 2. Supraventricular tachycardia, nonsustained, likely related to EtOH withdrawal. * Patient had one episode of non-sustained SVT again yesterday. Asymptomatic. * Cardiology follow-up * Echocardiogram shows no abnormalities with EF of 60-65%(10/12/16) * Replete electrolytes as necessary 3. Transaminitis due to EtOH. * Liver ultrasound: Shows Mild hepatomegaly. Diffusely increased liver echogenicity, unchanged compared to 2016. Findings can be seen with hepatic steatosis and/or chronic liverdisease. No ascites. * Repeat ICU bundle daily 4. Thrombocytopenia * Most likely secondary to alcohol * Repeat CBCs daily. * platelets - 102 L (05/23/16) DVT ALPS Full code
--- NOTE | 2016-10-15 10:41 | RADIOLOGY REPORT ---
EXAMINATION: PORTABLE CHEST 1 VIEW CLINICAL INFORMATION: fever in a sedated alcoholic patient. COMPARISON: 02/01/2016. TECHNIQUE: Portable frontal view of the chest was obtained. FINDINGS: The lungs are hypoexpanded with minimal basilar atelectasis. No focal infiltrate, effusion, edema, or pneumothorax. Cardiac and mediastinal silhouettes are within normal limits for technique. No acute bony abnormality seen. IMPRESSION: Hypoexpanded with minimal basilar atelectasis more suggestive of atelectasis in this setting. Early infiltrate, especially at the left base cannot be entirely excluded but would be considered less likely. Continued follow-up may be helpful.
--- NOTE | 2016-10-15 11:12 | Transfer of Care Summary ---
Hospital Course Course Hospital Course: Mr. baxter 66-year-old gentleman with past medical history of alcohol dependence, hypertension, transaminitis presented to ED requesting alcohol detox. In ED patient developed 2 episodes of nonsustained supraventricular tachycardia which resolved spontaneously without any intervention. patient was admitted in tele for close monitoring and was started on Ativan drip 2 mg every 6 hours IV which was titrated according to CIWA score. On day 2 of hospital admission code 7 was called when Mr. baxter was very agitated. The dose of ativan was changed to reflect the ciwa score, as a sliding scale. He was intermittently getting agitated, and required restraints, decison was made to transfer the pt to the ICU for closer monitoring ICU: Patient was started on Ativan drip according to the CIWA score,& Librium 50 mg every Q6 started. In view of Wernick (alcoholic encephalopathy) was started on thiamine 500 mg IV once daily. Aspiration and seizure precaution was followed, medical restraint as needed. Patient was seen by the commercial carpenter since there was no recurrence of SVT advised to continue Lopressor. His blood pressure medication metoprolol and amlodipine was continued. Sedation as needed Assessment/Plan: Mr. baxter 66-year-old gentleman with past medical history of alcohol dependence, hypertension, transaminitis presented to ED requesting alcohol detox. Patient was started on Ativan drip and initially on Librium 75 mg every Q6. Ativan drip was tapered off slowly. Today the patient is off Ativan. Librium taper to 50 mg every Q6. ICU DAY 5: PLAN: Transfer to [facility] Respiratory -stable, no acute issues ID -no acute issues -aspiration and seizure precaution. -cxr was normal CVS -Amlodipine was withheld as per commercial carpenter consult. -On metoprolol for blood pressure. -telemetry monitoring. No further SVT. -cardiology appreciated Heme -no acute issues Metabolic -monitor lytes -ins/outs -mvi, folate, thiamine changed to po 100 mg from tomorrow Alimentary -heart healthy diet as tolerated Neuro -librium is at 75 q 6h, reduce to 50qh -off ativan off,f/p CIWA score. -PRN ativan in place. DVT ALPS Full code
[2016-10-16] VITALS (10 sets, daily range): BP systolic 112–177; BP diastolic 62–92
[2016-10-16 04:56] LABS: ABSOLUTE BASOPHIL COUNT 0 /CUMM (0.0-0.2); ABSOLUTE EOSINOPHIL COUNT 0.3 /CUMM (0.0-0.7); ABSOLUTE GRANULOCYTE CT 4.2 /CUMM (1.4-6.5); ABSOLUTE LYMPH COUNT 1.2 /CUMM (1.2-3.4); ABSOLUTE MONOCYTE COUNT 0.9 /CUMM (0.10-0.60); BASOPHIL % 0.4 % (0.0-2.0); EOSINOPHIL % 3.9 % (0-5); GRANULOCYTE % 64.6 % (42.2-75.2); HEMATOCRIT 40.7 % (42-52); MEAN CORPUSCULAR HGB CONC 34.2 G/DL (33.0-37.0); MEAN CORPUSCULAR VOLUME 96.5 FL (80.0-94.0); MEAN PLATELET VOLUME 8.3 FL (7.4-10.4); PLATELET COUNT 122 /CUMM (130-400); RBC DISTRIBUTION WIDTH 13.1 % (11.5-14.5); RED BLOOD CELL CT 4.22 /CUMM (4.70-6.10); WHITE BLOOD CELL COUNT 6.6 /CUMM (4.8-10.8)
--- NOTE | 2016-10-16 06:29 | PN- CRCU ---
Subjective HPI/Critical Care Issues: DAY 5 Hospital course: I saw the patient at bedside. He is afebrile, hemodynamically stable and saturating well on room air. alert, oriented x3. no active complaints. No overnight events. On 2 soft restraints. Objective Current Medications: Current Medications Sig/Will Start time Last Medication Dose Route Stop Time Status Admin Acetaminophen 650 MG Q6P PRN 10/11 2230 AC PO Amlodipine Besylate 10 MG DAILY 10/12 1000 AC 10/15 PO 1205 Chlordiazepoxide HCl 75 MG Q6 10/14 2359 AC 10/15 PO 2313 Cyclobenzaprine HCl 5 MG BID 10/11 2239 AC 10/15 PO 2218 Haloperidol 1 MG ONCE PRN 10/12 1300 AC IM Hydromorphone HCl 0.5 MG Q4P PRN 10/11 223 AC 10/12 IV 1218 Lorazepam 100 MG Q12H 10/13 1200 AC 10/16 Sodium Chloride 1,000 ML IV 0000 Metoprolol Tartrate 6.25 MG BID 10/13 2200 AC 10/15 PO 2219 Multivitamins 1 TAB DAILY 10/12 1000 AC 10/15 PO 1009 Ondansetron HCl 4 MG Q6P PRN 10/11 2345 AC IV Oxycodone HCl 5 MG Q6P PRN 10/11 2300 AC PO Polyethylene Glycol 17 GM AT BEDTIME 10/12 2200 AC 10/13 PO 2130 Senna/Docusate Sodium 2 TAB AT BEDTIME 10/12 2200 AC 10/13 PO 2129 Thiamine HCl 250 MG DAILY 10/14 1000 AC 10/15 Sodium Chloride 100 ML IV 10/18 1030 1007 Vital Signs & I&O Last 24 Hrs of Vitals and I&O: Vital Signs Date Time Temp Pulse Resp B/P B/P Pulse O2 O2 Flow FiO2 Mean Ox Delivery Rate 10/17 399 97.5 75 22 140/80 10/16 0400 96 Nasal 2.0L Cannula 10/16 0000 97.6 62 20 120/70 10/16 0000 97.6 62 20 120/70 94 Nasal 2.0L Cannula 10/16 0000 94 Nasal 2.0L Cannula 10/159 97.4 60 20 136/71 10/150 66 22 135/85 10/16 1999 97.4 63 18 140/80 10/16 1999 97 Nasal 2.0L Cannula 10/15 1800 73 15 138/76 07/02 1600 97.3 61 20 150/88 07/02 1600 99 Nasal 2.0L Cannula / 1600 97.3 61 20 150/88 99 Nasal 2.0L Cannula /02 1400 72 23 07/02 1205 66 129/74 07/02 1200 97.7 65 22 132/70 07/02 1200 99 Nasal 2.0L Cannula / 1010 65 141/71 07/02 1000 65 20 141/71 07/02 0800 98.0 68 24 142/80 07/02 0800 98.0 68 24 142/80 100 Nasal 2.0L Cannula 10/15 0800 100 Nasal 2.0L Cannula Intake & Output 10/16 0800 07/03 0000 / 1600 Intake Total 980 1110 Output Total 400 Balance 580 1110 Intake, IV 640 750 Intake, Oral 340 360 Number 1 4 Bowel Movements Output, Urine 400 Exam General Appearance: well developed/nourished, alert, awake Head: atraumatic, normal appearance Ears, Nose, Throat: normal ENT inspection Neck: normal inspection, supple Respiratory: normal breath sounds, no respiratory distress Cardiovascular: regular rate/rhythm Abdomen: normal bowel sounds, soft, non-tender, no organomegaly Extremities: normal inspection, no edema Neurologic/Psychiatric: no motor/sensory deficits, awake, alert (orientedx2) Skin: intact, normal color Results Last 24 Hrs of Lab Results: Laboratory Tests 10/16/16 0340: Anion Gap 10, Estimated GFR > 60, Glucose 92, Calcium 8.8, Phosphorus 3.4, Magnesium 1.9, Total Bilirubin 1.4 H, AST 66 H, ALT 96 H, Albumin 3.5, CBC w Diff NO MAN DIFF REQ, RBC 4.22 L, MCV 96.5 H, MCH 33.0 H, RDW 13.1, MPV 8.3, Gran % 64.6, Lymphocytes % 17.6 L, Monocytes % 13.5 H, Eosinophils % 3.9, Basophils % 0.4, Absolute Granulocytes 4.2, Absolute Lymphocytes 1.2, Absolute Monocytes 0.9 H, Absolute Eosinophils 0.3, Absolute Basophils 0, PUBS MCHC 34.2 Diagnostic Data CXR Findings: Hypoexpanded with minimal basilar atelectasis more suggestive of atelectasis in this setting. Early infiltrate, especially at the left base cannot be entirely excluded but would be considered less likely. Continued follow-up may be helpful. ECHO Findings: Normal left ventricular ejection fraction estimated at 60-65%. US Findings: Mild hepatomegaly. Diffusely increased liver echogenicity, unchanged compared to 2016. Findings can be seen with hepatic steatosis and/or chronic liver disease. No ascites Impression/Plan Impression/Plan Impression/Plan: Mr. baxter 66-year-old gentleman with past medical history of alcohol dependence, hypertension, transaminitis presented to ED requesting alcohol detox. ICU DAY 4: * ON ATIVAN drip 6 mg/h and PLAN: 1. EtOH withdrawal/delirium tremens. * patient is on 6mg/h ativan down from 8 mg/hr, continue based on CIWA score. * Librium increased to 75 mg every Q6 because was seen more agitated requiring more ativan. * Thiamine 100 mg IV tomorrow down from 250 mg once daily in view of wernicke encephalopathy. * Continue aspiration and seizure precaution, heart healthy diet * Continue medical restraint as needed * Continue multivitamin and folic acid daily 2. Supraventricular tachycardia, nonsustained, likely related to EtOH withdrawal. * No further eopisodes of SVT. * Cardiology- advised to continue lopressor and hold norvasc. * Echocardiogram shows no abnormalities with EF of 60-65%(10/12/16) * Replete electrolytes as necessary 3. Transaminitis due to EtOH. * Liver ultrasound: Shows Mild hepatomegaly. Diffusely increased liver echogenicity, unchanged compared to 2016. Findings can be seen with hepatic steatosis and/or chronic liverdisease. No ascites. * Repeat ICU bundle daily 4. Thrombocytopenia * Most likely secondary to alcohol * Repeat CBCs daily. * platelets - 102 L (05/23/16) DVT ALPS Full code
--- NOTE | 2016-10-16 09:55 | PN- Pulmonary ---
Subjective HPI/Critical Care Issues: pt seen and examined on ativan drip comfortable no new events Objective Current Medications: Current Medications Sig/Will Start time Last Medication Dose Route Stop Time Status Admin Acetaminophen 650 MG Q6P PRN 10/11 2230 AC PO Amlodipine Besylate 10 MG DAILY 10/12 1000 AC 10/15 PO 1205 Chlordiazepoxide HCl 75 MG Q6 10/14 2359 AC 10/16 PO 0647 Cyclobenzaprine HCl 5 MG BID 10/11 2239 AC 10/16 PO 0935 Haloperidol 1 MG ONCE PRN 10/12 1300 AC IM Hydromorphone HCl 0.5 MG Q4P PRN 10/11 2230 AC 10/12 IV 1218 Lorazepam 0 Q1P PRN 10/16 0945 AC IV Lorazepam 100 MG Q12H 10/13 1200 AC 10/16 Sodium Chloride 1,000 ML IV 0000 Metoprolol Tartrate 6.25 MG BID 10/13 2200 AC 10/15 PO 2219 Multivitamins 1 TAB DAILY 10/12 1000 AC 10/16 PO 0935 Ondansetron HCl 4 MG Q6P PRN 10/11 2345 AC IV Oxycodone HCl 5 MG Q6P PRN 10/11 2300 AC PO Polyethylene Glycol 17 GM AT BEDTIME 10/12 2200 AC 10/13 PO 2130 Senna/Docusate Sodium 2 TAB AT BEDTIME 10/12 2200 AC 10/13 PO 2129 Thiamine HCl 250 MG DAILY 10/14 1000 AC 10/16 Sodium Chloride 100 ML IV 10/18 1030 0935 Vital Signs & I&O Last 24 Hrs of Vitals and I&O: Vital Signs Date Time Temp Pulse Resp B/P B/P Pulse O2 O2 Flow FiO2 Mean Ox Delivery Rate 10/16 0937 59 104/60 10/16 0936 59 104/72 10/16 0800 98.0 59 26 122/68 97 Nasal 2.0L Cannula 10/16 0800 97 Nasal 2.0L Cannula 10/16 0600 56 20 136/86 / 0400 97.5 75 22 140/80 10/16 0400 96 Nasal 2.0L Cannula 10/16 0200 56 20 123/78 07/ 0000 97.6 62 20 120/70 07/ 0000 97.6 62 20 120/70 94 Nasal 2.0L Cannula 10/16 0000 94 Nasal 2.0L Cannula 10/15 2219 97.4 60 20 136/71 10/15 2200 66 22 135/85 10/16 1999 97.4 63 18 140/80 10/16 1999 97 Nasal 2.0L Cannula 10/15 1800 73 15 138/76 10/15 1600 97.3 61 20 150/88 10/15 1600 99 Nasal 2.0L Cannula 10/15 1600 97.3 61 20 150/88 99 Nasal 2.0L Cannula 10/15 1400 72 23 10/15 1205 66 129/74 10/15 1200 97.7 65 22 132/70 10/15 1200 99 Nasal 2.0L Cannula 10/15 1010 65 141/71 10/15 1000 65 20 141/71 Intake & Output 10/16 1600 10/16 0800 10/16 0000 Intake Total 731 980 Output Total 400 400 Balance 331 580 Intake, IV 631 640 Intake, Oral 100 340 Number 1 Bowel Movements Output, Urine 400 400 Exam Other Physical Findings: gen sedated but arousable heent ncat cvs s1, s2 lungs reduced at bases abd soft bs+ ext without edema Results Last 24 Hrs of Lab Results: Laboratory Tests 10/16/16 0340: Anion Gap 10, Estimated GFR > 60, Glucose 92, Calcium 8.8, Phosphorus 3.4, Magnesium 1.9, Total Bilirubin 1.4 H, AST 66 H, ALT 96 H, Albumin 3.5, CBC w Diff NO MAN DIFF REQ, RBC 4.22 L, MCV 96.5 H, MCH 33.0 H, RDW 13.1, MPV 8.3, Gran % 64.6, Lymphocytes % 17.6 L, Monocytes % 13.5 H, Eosinophils % 3.9, Basophils % 0.4, Absolute Granulocytes 4.2, Absolute Lymphocytes 1.2, Absolute Monocytes 0.9 H, Absolute Eosinophils 0.3, Absolute Basophils 0, PUBS MCHC 34.2 Impression/Plan Impression/Plan Impression/Plan: Pavan Carey M.D. have examined this patient, reviewed available EMR data, personally reviewed images, discussed with resident/PA/PODIATRIC FOOT AND ANKLE SPECIALIST, discussed management plan with housestaff and nursing staff, discussed managment plan all of healthcare providers, discussed management plan with patient and/or family, agreed with resident/PA/PODIATRIC FOOT AND ANKLE SPECIALIST. The past history and parts of the chart have been autopopulated. 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
--- NOTE | 2016-10-16 10:30 | PN- Cardiology ---
Subjective Subjective: Still confused but certainly more responsive compared to when I saw him previously. Denies chest pain, dyspnea, or palpitations. In soft restraints this morning. Objective Vital Signs and I&Os Vital Signs Date Time Temp Pulse Resp B/P B/P Pulse O2 O2 Flow FiO2 Mean Ox Delivery Rate 10/16 0937 59 104/60 / 0936 59 104/72 / 0800 98.0 59 26 122/68 97 Nasal 2.0L Cannula 10/16 0800 97 Nasal 2.0L Cannula / 0600 56 20 136/86 07/ 0400 97.5 75 22 140/80 07/ 0400 96 Nasal 2.0L Cannula / 0200 56 20 123/78 07/ 0000 97.6 62 20 120/70 07/03 0000 97.6 62 20 120/70 94 Nasal 2.0L Cannula / 0000 94 Nasal 2.0L Cannula 10/15 2219 97.4 60 20 136/71 / 2200 66 22 135/85 / 2000 97.4 63 18 140/80 07/ 2000 97 Nasal 2.0L Cannula / 1800 73 15 138/76 07/02 1600 97.3 61 20 150/88 07/02 1600 99 Nasal 2.0L Cannula / 1600 97.3 61 20 150/88 99 Nasal 2.0L Cannula / 1400 72 23 07/02 1205 66 129/74 07/02 1200 97.7 65 22 132/70 07/02 1200 99 Nasal 2.0L Cannula Intake & Output 10/16 1600 /03 0800 /03 0000 /02 1600 / 0800 / 0000 Intake Total 831 774 8080 732 760 Output Total 400 400 500 200 Balance 573 067 0366 232 560 Intake, IV 631 640 750 532 400 Intake, Oral 100 340 360 200 360 Number 1 4 2 Bowel Movements Output, Urine 400 400 500 200 Patient 211 lb Weight Physical Exam: General: no apparent distress. Lethargic. In soft restraints Eyes: No obvious scleral icterus. HEENT: No jugular venous distention or abnormal jugular venous pulsations. Cardiovascular: Normal intensity S1/S2. Regular. Respiratory: No rales or rhonchi Abdomen: no guarding or rebound tenderness. Musculoskeletal: No clubbing or cyanosis noted, no edema Skin: warm Neurologic: Lethargic Lymph: No gross lymphadenopathy. Current Medications: Current Medications Sig/Will Start time Last Medication Dose Route Stop Time Status Admin Acetaminophen 650 MG Q6P PRN 10/11 2230 AC PO Amlodipine Besylate 10 MG DAILY 10/12 1000 AC 10/15 PO 1205 Chlordiazepoxide HCl 75 MG Q6 10/14 2359 AC 10/16 PO 0647 Cyclobenzaprine HCl 5 MG BID 10/11 2239 AC 10/16 PO 0935 Haloperidol 1 MG ONCE PRN 10/12 1300 AC IM Hydromorphone HCl 0.5 MG Q4P PRN 10/11 2230 AC 10/12 IV 1218 Lorazepam 0 Q1P PRN 10/16 0945 AC IV Lorazepam 100 MG Q12H 10/13 1200 AC 10/16 Sodium Chloride 1,000 ML IV 0000 Metoprolol Tartrate 6.25 MG BID 10/13 2200 AC 10/15 PO 2219 Multivitamins 1 TAB DAILY 10/12 1000 AC 10/16 PO 0935 Ondansetron HCl 4 MG Q6P PRN 10/11 2345 AC IV Oxycodone HCl 5 MG Q6P PRN 10/11 2300 AC PO Polyethylene Glycol 17 GM AT BEDTIME 10/12 2200 AC 10/13 PO 2130 Senna/Docusate Sodium 2 TAB AT BEDTIME 10/12 2199 AC 10/13 PO 2129 Thiamine HCl 250 MG DAILY 10/14 1000 AC 10/16 Sodium Chloride 100 ML IV 10/18 1030 0935 Results Last 48 Hrs of Labs/Mics: Laboratory Tests 10/16/16 0340: Anion Gap 10, Estimated GFR > 60, Glucose 92, Calcium 8.8, Phosphorus 3.4, Magnesium 1.9, Total Bilirubin 1.4 H, AST 66 H, ALT 96 H, Albumin 3.5, CBC w Diff NO MAN DIFF REQ, RBC 4.22 L, MCV 96.5 H, MCH 33.0 H, RDW 13.1, MPV 8.3, Gran % 64.6, Lymphocytes % 17.6 L, Monocytes % 13.5 H, Eosinophils % 3.9, Basophils % 0.4, Absolute Granulocytes 4.2, Absolute Lymphocytes 1.2, Absolute Monocytes 0.9 H, Absolute Eosinophils 0.3, Absolute Basophils 0, PUBS MCHC 34.2 10/15/16 0322: Anion Gap 10, Estimated GFR > 60, Glucose 77, Calcium 8.6, Phosphorus 3.1, Magnesium 2.1, Total Bilirubin 1.9 H, AST 77 H, ALT 108 H, Albumin 3.5, CBC w Diff NO MAN DIFF REQ, RBC 4.12 L, MCV 97.1 H, MCH 33.2 H, RDW 13.1, MPV 8.3, Gran % 67.3, Lymphocytes % 16.0 L, Monocytes % 12.8 H, Eosinophils % 3.7, Basophils % 0.2, Absolute Granulocytes 4.1, Absolute Lymphocytes 1.0 L, Absolute Monocytes 0.8 H, Absolute Eosinophils 0.2, Absolute Basophils 0, PUBS MCHC 34.2 Microbiology 10/15 1120 STOOL: Clostridium difficile Toxin A & B - COMP Recent Imaging Studies: Telemetry tracings were personally reviewed and shows sinus rhythm Assessment/Plan Assessment/Plan 1. EtOH abuse 2. EtOH withdrawal 3. Paroxysmal supraventricular tachycardia 4. History of hypertension 5. Abnormal LFTs More alert compared to my previous exam but still lethargic and remains in soft restraints. No sustained arrhythmias noted on telemetry review. Blood pressure soft this morning; recommend holding the Norvasc and continuing on the oral Lopressor as blood pressure tolerates. Continue treatment for alcohol withdrawal. Would maintain on telemetry for the time being. Leonel Camacho MD [facility] Continue telemetry? Yes
[2016-10-17] VITALS (11 sets, daily range): BP systolic 124–162; BP diastolic 67–94
[2016-10-17 04:34] LABS: HEMATOCRIT 40.6 % (42-52); WHITE BLOOD CELL COUNT 6.2 /CUMM (4.8-10.8)
[2016-10-17 04:42] LABS: ABSOLUTE BASOPHIL COUNT 0 /CUMM (0.0-0.2); ABSOLUTE EOSINOPHIL COUNT 0.2 /CUMM (0.0-0.7); ABSOLUTE MONOCYTE COUNT 0.8 /CUMM (0.10-0.60); BASOPHIL % 0.3 % (0.0-2.0); EOSINOPHIL % 3.8 % (0-5); GRANULOCYTE % 65.2 % (42.2-75.2); MEAN CORPUSCULAR HGB 33.4 PG (27.0-31.0); MEAN CORPUSCULAR HGB CONC 34.3 G/DL (33.0-37.0); MEAN CORPUSCULAR VOLUME 97.5 FL (80.0-94.0); PLATELET COUNT 135 /CUMM (130-400); RBC DISTRIBUTION WIDTH 13.1 % (11.5-14.5); RED BLOOD CELL CT 4.17 /CUMM (4.70-6.10)
--- NOTE | 2016-10-17 09:47 | PN- CRCU ---
Subjective HPI/Critical Care Issues: pt seen and examined off ativan drip since last night doing well comfortable afebrile normotensive on lopressor hr 60 no svt events Objective Current Medications: Current Medications Sig/Will Start time Last Medication Dose Route Stop Time Status Admin Acetaminophen 650 MG Q6P PRN 10/11 2230 AC PO Amlodipine Besylate 10 MG DAILY 10/12 1000 DC 10/15 PO 1205 Chlordiazepoxide HCl 75 MG Q6 10/14 2359 AC 10/17 PO 0554 Cyclobenzaprine HCl 5 MG BID 10/11 2239 AC 10/16 PO 2136 Folic Acid 1 MG DAILY 10/17 1000 AC PO Haloperidol 1 MG ONCE PRN 10/12 1300 AC 10/16 IM 2136 Hydromorphone HCl 0.5 MG Q4P PRN 10/11 2230 AC 10/16 IV 2331 Lorazepam 100 MG Q16H 10/16 1330 AC 10/16 Sodium Chloride 1,000 ML IV 1553 Lorazepam 0 Q1P PRN 10/16 0945 AC 10/16 IV 2331 Lorazepam 100 MG Q12H 10/13 1200 DC 10/16 Sodium Chloride 1,000 ML IV 10/16 1329 0000 Metoprolol Tartrate 6.25 MG BID 10/13 2200 AC 10/16 PO 2135 Multivitamins 1 TAB DAILY 10/12 1000 AC 10/16 PO 0935 Ondansetron HCl 4 MG Q6P PRN 10/11 2345 AC IV Oxycodone HCl 5 MG Q6P PRN 10/11 2300 AC PO Polyethylene Glycol 17 GM AT BEDTIME 10/12 2200 AC 10/16 PO 2135 Senna/Docusate Sodium 2 TAB AT BEDTIME 10/12 2200 AC 10/16 PO 2135 Thiamine HCl 100 MG 0910/17 0900 DC Sodium Chloride 100 ML IV 10/17 0930 Thiamine HCl 100 MG ONCE ONE 10/16 1330 CAN Sodium Chloride 100 ML IV 10/17 1359 Thiamine HCl 250 MG DAILY 10/14 1000 DC 10/16 Sodium Chloride 100 ML IV 10/18 1030 0935 Vital Signs & I&O Last 24 Hrs of Vitals and I&O: Vital Signs Date Time Temp Pulse Resp B/P B/P Pulse O2 O2 Flow FiO2 Mean Ox Delivery Rate 10/17 06 97.5 60 12 143/73 10/17 0400 97.5 60 12 124/68 / 0000 98.0 64 12 127/70 07/04 0000 98.0 64 12 140/72 98 Room Air Room Air 10/16 2334 97.5 78 20 177/92 10/16 2228 97.5 74 22 170/91 10/16 2135 80 144/78 10/16 2130 97.5 66 18 144/78 10/16 2000 97.5 64 20 128/62 10/16 1545 97.6 60 24 112/70 98 Room Air 10/16 1200 96 Room Air Intake & Output 10/17 1600 10/17 0800 10/17 0000 Intake Total 353 964 Output Total 425 1350 Balance -72 -386 Intake, IV 253 544 Intake, Oral 100 420 Number 0 0 Bowel Movements Output, Urine 425 1350 Exam Other Physical Findings: gen sedated but arousable heent ncat cvs s1, s2 lungs reduced at bases abd soft bs+ ext without edema Results Last 24 Hrs of Lab Results: Laboratory Tests 10/17/16 0405: Anion Gap 8, Estimated GFR > 60, Glucose 99, Calcium 8.8, Phosphorus 4.0, Magnesium 1.8, Total Bilirubin 1.0, AST 78 H, ALT 99 H, Albumin 3.5, CBC w Diff NO MAN DIFF REQ, RBC 4.17 L, MCV 97.5 H, MCH 33.4 H, RDW 13.1, MPV 8.0, Gran % 65.2, Lymphocytes % 17.0 L, Monocytes % 13.7 H, Eosinophils % 3.8, Basophils % 0.3, Absolute Granulocytes 4.0, Absolute Lymphocytes 1.0 L, Absolute Monocytes 0.8 H, Absolute Eosinophils 0.2, Absolute Basophils 0, PUBS MCHC 34.3 Impression/Plan Impression/Plan Impression/Plan: Impression 66 year old man * etoh dependence and withdrawal * tachyarrhythmia (SVT) * alcoholic hepatitis * 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
--- NOTE | 2016-10-17 10:09 | PN- CRCU ---
Subjective HPI/Critical Care Issues: I saw the patient today personally at bedside. He is conscientious alert oriented 3. He is saturating well at room air. Vitals stable. No further SVT. No further episodes of loose stools. On soft B/L upper extremity restraints. Off Ativan drip Objective Current Medications: Current Medications Sig/Will Start time Last Medication Dose Route Stop Time Status Admin Acetaminophen 650 MG Q6P PRN 10/11 2230 AC PO Amlodipine Besylate 10 MG DAILY 10/12 1000 DC 10/15 PO 1205 Chlordiazepoxide HCl 50 MG Q6 10/17 1200 AC PO Chlordiazepoxide HCl 50 MG TID 10/17 1000 DC PO Chlordiazepoxide HCl 75 MG Q6 10/14 2359 DC 10/17 PO 0554 Cyclobenzaprine HCl 5 MG BID 10/11 2239 AC 10/17 PO 1053 Folic Acid 1 MG DAILY 10/17 1000 AC 10/17 PO 1053 Haloperidol 1 MG ONCE PRN 10/12 1300 AC 10/16 IM 2136 Hydromorphone HCl 0.5 MG Q4P PRN 10/11 2230 AC 10/16 IV 2331 Lorazepam 100 MG Q16H 10/16 1330 DC 10/16 Sodium Chloride 1,000 ML IV 1553 Lorazepam 0 Q1P PRN 10/16 0945 AC 10/17 IV 1041 Lorazepam 100 MG Q12H 10/13 1200 DC 10/16 Sodium Chloride 1,000 ML IV 10/16 1329 0000 Magnesium Oxide 400 MG ONE ONE 10/17 1030 DC 10/17 PO 10/17 1031 1053 Metoprolol Tartrate 6.25 MG BID 10/13 2200 AC 10/17 PO 1052 Multivitamins 1 TAB DAILY 10/12 1000 AC 10/17 PO 1052 Ondansetron HCl 4 MG Q6P PRN 10/11 2345 AC IV Oxycodone HCl 5 MG Q6P PRN 10/11 2300 AC PO Polyethylene Glycol 17 GM AT BEDTIME 10/12 2200 AC 10/16 PO 2135 Potassium Chloride 20 MEQ ONCE ONE 10/17 1030 DC 10/17 PO 10/17 1031 1052 Senna/Docusate Sodium 2 TAB AT BEDTIME 10/12 2200 AC 10/16 PO 2135 Thiamine HCl 100 MG DAILY 10/18 1000 AC PO Thiamine HCl 100 MG 0900 10/17 0900 DC 10/17 Sodium Chloride 100 ML IV 10/17 0930 1055 Thiamine HCl 100 MG ONCE ONE 10/16 1330 CAN Sodium Chloride 100 ML IV 10/17 1359 Thiamine HCl 250 MG DAILY 10/14 1000 DC 10/16 Sodium Chloride 100 ML IV 10/18 1030 0935 Vital Signs & I&O Last 24 Hrs of Vitals and I&O: Vital Signs Date Time Temp Pulse Resp B/P B/P Pulse O2 O2 Flow FiO2 Mean Ox Delivery Rate 10/17 1052 60 160/84 10/17 1036 67 19 160/84 10/17 1000 71 16 162/89 10/17 0800 98.0 72 22 132/80 10/17 0600 97.5 60 12 143/73 10/17 0400 97.5 60 12 124/68 07/ 0000 98.0 64 12 127/70 07/04 0000 98.0 64 12 140/72 98 Room Air Room Air 10/16 2334 97.5 78 20 177/92 10/16 2228 97.5 74 22 170/91 10/16 2135 80 144/78 10/16 2130 97.5 66 18 144/78 /03 2000 97.5 64 20 128/62 07/03 1545 97.6 60 24 112/70 98 Room Air 10/16 1200 96 Room Air Intake & Output 10/17 1600 10/17 0800 10/17 0000 Intake Total 353 964 Output Total 425 1350 Balance -72 -386 Intake, IV 253 544 Intake, Oral 100 420 Number 0 0 Bowel Movements Output, Urine 425 1350 Exam General Appearance: well developed/nourished Head: atraumatic, normal appearance Ears, Nose, Throat: normal ENT inspection Neck: normal inspection Respiratory: normal breath sounds Cardiovascular: regular rate/rhythm Abdomen: normal bowel sounds, soft, non-tender Back: normal inspection Extremities: normal inspection, normal capillary refill Neurologic/Psychiatric: no motor/sensory deficits, awake, alert, oriented x 3 Skin: intact, normal color Results Last 24 Hrs of Lab Results: Laboratory Tests 10/17/16 0405: Anion Gap 8, Estimated GFR > 60, Glucose 99, Calcium 8.8, Phosphorus 4.0, Magnesium 1.8, Total Bilirubin 1.0, AST 78 H, ALT 99 H, Albumin 3.5, CBC w Diff NO MAN DIFF REQ, RBC 4.17 L, MCV 97.5 H, MCH 33.4 H, RDW 13.1, MPV 8.0, Gran % 65.2, Lymphocytes % 17.0 L, Monocytes % 13.7 H, Eosinophils % 3.8, Basophils % 0.3, Absolute Granulocytes 4.0, Absolute Lymphocytes 1.0 L, Absolute Monocytes 0.8 H, Absolute Eosinophils 0.2, Absolute Basophils 0, PUBS MCHC 34.3 Impression/Plan Impression/Plan Impression/Plan: Mr. baxter 66-year-old gentleman with past medical history of alcohol dependence, hypertension, transaminitis presented to ED requesting alcohol detox. Patient is alert, oriented 3 afebrile, comfortable at rest. Patient is off ativan. Doing well today. ICU DAY 5: PLAN: Transfer to [facility] Respiratory -stable, no acute issues ID -no acute issues -aspiration and seizure precaution. -cxr was normal CVS -On metoprolol. no further epoisodes of SVT. -telemetry monitoring -cardiology appreciated Heme -no acute issues Metabolic -monitor lytes -ins/outs -mvi, folate, thiamine changed to po 100 mg from tomorrow Alimentary -heart healthy diet as tolerated Neuro -librium is at 75 q 6h, reduce to 50qh -off ativan off,f/p CIWA score. -PRN ativan in place. DVT ALPS Full code Code Status: Full Code Problem List: 1. Alcohol abuse
[2016-10-18 06:18] VITALS: BP 150/90
[2016-10-18 08:27] VITALS: BP 150/60
--- NOTE | 2016-10-18 10:39 | PN- Housestaff ---
Subjective Follow-up For: Alcohol detox Subjective: Pt was drowsy this morning, not answering questions, appears to be hallucinating. As per nursing pt required ativan once at night. Review of Systems Constitutional: Denies: see HPI. Objective Last 24 Hrs of Vital Signs/I&O Vital Signs Date Time Temp Pulse Resp B/P B/P Pulse O2 O2 Flow FiO2 Mean Ox Delivery Rate 10/19 0641 98.0 68 16 150/70 93 Room Air / 0600 98.0 68 16 150/70 07/06 0246 98.1 74 20 150/80 91 07/06 0200 98.1 74 20 150/80 07/05 2200 98.4 71 18 152/74 92 Room Air 07/ 2130 98.4 71 16 152/74 07/05 1435 98.0 72 18 126/60 93 Room Air Intake & Output 10/19 1600 10/19 0800 10/19 0000 Intake Total 480 Output Total Balance 480 Intake, Oral 480 Physical Exam General Appearance: Cooperative, No Acute Distress, drowsy HEENT: Atraumatic, PERRLA, Mucous Membr. moist/pink Cardiovascular: Regular Rate, Normal S1, Normal S2 Lungs: Clear to Auscultation Abdomen: Normal Bowel Sounds, Soft, No Tenderness Extremities: No Edema, Normal Pulses Assessment/Plan Assessment: Pt is a 66-year-old male with PMH of alcohol dependence, hypertension, transaminitis presented to ED requesting alcohol detox. Patient was admitted to ICU and was started on Ativan drip and initially on Librium 75 mg every Q6. Was found to have PSVT/SVT this admission. Patient was transferred to the general medicine floor and is being managed for the followin. Alcohol detox - transferred from ICU on: Librium 50mg q6h and ativan PRN - CIWA highest over 24 hr: 10, currently 3-4 - pt was extremely drowsy this morning will taper the librium to 50mg q12h - will continue ativan PRN - placed on 1:1 sitter 2. PSVT/SVT - cardiology following, will follow recommendations - metoprolol increased from 12.5mg daily to 12mg BID - ECHO: no evidence of alcoholic cardiomyopathy 3. Alcohol dependence - continue thiamine PO 100mg, folic acid, multivitamin - psych consulted 4. Transaminitis: AST: ALT ratio < 1, most likely due to acute liver injury 2/2 to alcohol - enzymes are slowly trending down: today AST: 69, ALT: 86 DVT PPx: ALPS Diet: Regular Code: Full Problem List: 1. Alcohol withdrawal 2. Alcohol dependence syndrome 3. Paroxysmal SVT (supraventricular tachycardia) 4. Transaminitis Pain Ratin Pain Location: none Pain Goal: Remain pain free Pain Plan: none Tomorrow's Labs & Rationales: none
[2016-10-18 12:00] VITALS: BP 122/88
--- NOTE | 2016-10-18 12:07 | PN- Cardiology ---
Subjective Subjective: Appears comfortable but remains lethargic. at bedside today. Objective Vital Signs and I&Os Vital Signs Date Time Temp Pulse Resp B/P B/P Pulse O2 O2 Flow FiO2 Mean Ox Delivery Rate 10/18 1003 98.3 63 20 150/60 07/05 0827 98.3 63 20 150/60 /05 0618 98.7 75 18 150/90 93 Room Air / 2155 58 130/88 / 2147 98.9 59 18 130/88 93 Room Air / 2125 99.8 58 20 130/88 96 07/04 1648 97.9 60 18 134/94 92 Room Air / 1400 62 15 126/67 Intake & Output 10/18 1600 10/18 0800 10/18 0000 10/17 1600 10/17 0800 10/17 0000 Intake Total 380 500 353 964 Output Total 4302 932 8456 Balance -770 500 -72 -386 Intake, IV 140 253 544 Intake, Oral 380 360 100 420 Number 0 0 0 Bowel Movements Output, Urine 2514 833 5170 Physical Exam: General: no apparent distress. Lethargic. Eyes: No obvious scleral icterus. HEENT: No jugular venous distention or abnormal jugular venous pulsations. Cardiovascular: Normal intensity S1/S2. Regular. Respiratory: No rales or rhonchi Abdomen: no guarding or rebound tenderness. Musculoskeletal: No clubbing or cyanosis noted, no edema Skin: warm Current Medications: Current Medications Sig/Will Start time Last Medication Dose Route Stop Time Status Admin Acetaminophen 650 MG Q6P PRN 10/11 2229 AC PO Chlordiazepoxide HCl 50 MG Q12 10/18 2200 AC PO Chlordiazepoxide HCl 50 MG Q6 10/17 1200 DC 10/18 PO 0545 Cyclobenzaprine HCl 5 MG BID 10/11 223 AC 10/18 PO 1002 Folic Acid 1 MG DAILY 10/17 1000 AC 10/18 PO 1003 Haloperidol 1 MG ONCE PRN 10/12 1300 AC 10/16 IM 2136 Hydromorphone HCl 0.5 MG Q4P PRN 10/11 223 AC 10/16 IV 2331 Lorazepam 0 Q1P PRN 10/16 0945 AC 10/18 IV 0415 Metoprolol Tartrate 6.25 MG BID 10/13 2199 AC 10/18 PO 1003 Multivitamins 1 TAB DAILY 10/12 1000 AC 10/18 PO 1003 Ondansetron HCl 4 MG Q6P PRN 10/11 2345 AC IV Oxycodone HCl 5 MG Q6P PRN 10/11 2300 AC PO Polyethylene Glycol 17 GM AT BEDTIME 10/12 2200 AC 10/16 PO 2135 Senna/Docusate Sodium 2 TAB AT BEDTIME 10/12 2200 AC 10/16 PO 2135 Thiamine HCl 100 MG DAILY 10/18 1000 AC 10/18 PO 1002 Results Last 48 Hrs of Labs/Mics: Laboratory Tests 10/17/16 0405: Anion Gap 8, Estimated GFR > 60, Glucose 99, Calcium 8.8, Phosphorus 4.0, Magnesium 1.8, Total Bilirubin 1.0, AST 78 H, ALT 99 H, Albumin 3.5, CBC w Diff NO MAN DIFF REQ, RBC 4.17 L, MCV 97.5 H, MCH 33.4 H, RDW 13.1, MPV 8.0, Gran % 65.2, Lymphocytes % 17.0 L, Monocytes % 13.7 H, Eosinophils % 3.8, Basophils % 0.3, Absolute Granulocytes 4.0, Absolute Lymphocytes 1.0 L, Absolute Monocytes 0.8 H, Absolute Eosinophils 0.2, Absolute Basophils 0, PUBS MCHC 34.3 Recent Imaging Studies: No longer on telemetry Assessment/Plan Assessment/Plan 1. EtOH abuse 2. EtOH withdrawal 3. Paroxysmal supraventricular tachycardia 4. History of hypertension 5. Abnormal LFTs Hemodynamically stable. Remains lethargic but appears comfortable. at bedside today. We discussed the importance of EtOH cessation. Fortunately his echocardiogram did not reveal evidence of an alcoholic cardiomyopathy. Recommend increasing the metoprolol to 12.5 mg by mouth twice a day. Leonel Camacho MD [facility] Continue telemetry? Not applicable
--- NOTE | 2016-10-18 13:21 | PN- Att Addend ---
Attending Addendum Attending Brief Note Patient seen and examined, he remains hallucinating. He remains in [place]. He could not give a good history upon questioning. Patient was transferred out of ICU. He was admitted with acute upper intoxication and was started on benzodiazepines. Vital Signs Date Time Temp Pulse Resp B/P B/P Pulse O2 O2 Flow FiO2 Mean Ox Delivery Rate 10/18 1200 98.3 68 18 122/88 / 1003 98.3 63 20 150/60 07/05 0827 98.3 63 20 150/60 07/05 0618 98.7 75 18 150/90 93 Room Air / 2155 58 130/88 07/ 2147 98.9 59 18 130/88 93 Room Air / 2125 99.8 58 20 130/88 96 /04 1648 97.9 60 18 134/94 92 Room Air / 1400 62 15 126/67 on exam; awake, hallucinating. cv; s1,s2, rrr resp; clear abd; soft, nt, bs+ ext; no edema. no labs. A/P; 66-year-old male with history significant for hypertension, alcohol dependence who was admitted with acute alcohol intoxication needing detox. Patient had been started on benzodiazepine. He also had episodes of paroxysmal to prevent her tachycardia and has been started on a beta ankur. Please follow further cardiology recommendations and beta ankur. At this point we will go down further on the dose of Librium. Continue patient on Ativan. Continue multivitamin, folate and thiamine. Patient remains in [place] for safety. Continue other current medications. DVT prophylaxis: ALPS. Social work follow up will be needed.
[2016-10-18 14:35] VITALS: BP 126/60
[2016-10-18 22:00] VITALS: BP 152/74
[2016-10-19] VITALS (10 sets, daily range): BP systolic 130–150; BP diastolic 70–84
--- NOTE | 2016-10-19 12:40 | PN- Att Addend ---
Attending Addendum Attending Brief Note Patient seen and examined, he is still very confused. He has a sitter. He was scoring high on CIWA and required significant amount of when necessary Ativan along with his scheduled Librium. Vital Signs Date Time Temp Pulse Resp B/P B/P Pulse O2 O2 Flow FiO2 Mean Ox Delivery Rate 10/19 640 98.0 68 16 150/70 93 Room Air / 0600 98.0 68 16 150/70 07/06 0246 98.1 74 20 150/80 91 07/06 0200 98.1 74 20 150/80 07/05 2200 98.4 71 18 152/74 92 Room Air 07/05 2130 98.4 71 16 152/74 07/05 1435 98.0 72 18 126/60 93 Room Air on exam; aox3, nad. cv; s1,s2, rrr resp; clear abd; soft, nt, bs+ ext; no edema. Laboratory Tests 10/19 709 Chemistry Total Bilirubin (0.2 - 1.3 mg/dL) 1.0 Direct Bilirubin (< 0.4 mg/dL) 0.3 AST (17 - 59 U/L) 69 H ALT (21 - 72 U/L) 86 H Alkaline Phosphatase (< 127 U/L) 68 Total Protein (6.3 - 8.2 g/dL) 5.7 L Albumin (3.5 - 5.0 g/dL) 3.5 A/P; 66-year-old male with history significant for hypertension, alcohol dependence who was admitted with acute alcohol intoxication needing detox. Patient had been started on benzodiazepine. He also had episodes of paroxysmal supraventricular tachycardia and has been started on a beta ankur, the dose of which was increased yesterday but cardiology commendations. Patient continues to score high on the CIWA. Continue the Librium at the present dose. Continue. Ativan. Continue multivitamin, folate and thiamine. Continue the sitter. I had a lengthy discussion with patient's , patient will likely need to go to some outpatient rehabilitation after he's done with his acute detox. DVT prophylaxis:. Can start pharmacologic DVT prophylaxis (hep sq) now that the platelet count is improved
--- NOTE | 2016-10-19 14:37 | PN- Housestaff ---
Subjective Follow-up For: Alcohol detox, Alcohol dependence, PSVT, Transaminitis Subjective: As per overnight team: pt was extremely agitated requiring multiple doses of ativan As per nursing and sitter: pt was agitated and restless until 5am I saw and examined the patient. Pt was drowsy, arousable but not answering questions. Review of Systems Constitutional: Denies: see HPI. Objective Last 24 Hrs of Vital Signs/I&O Vital Signs Date Time Temp Pulse Resp B/P B/P Pulse O2 O2 Flow FiO2 Mean Ox Delivery Rate 10/19 1428 98.9 64 20 132/70 93 Room Air 07/06 1342 150/70 07/06 0641 98.0 68 16 150/70 93 Room Air 07/06 0600 98.0 68 16 150/70 07/06 0246 98.1 74 20 150/80 91 07/06 0200 98.1 74 20 150/80 07/05 2200 98.4 71 18 152/74 92 Room Air 07/05 2130 98.4 71 16 152/74 Intake & Output / 1600 /06 0800 07/06 0000 Intake Total 350 480 Output Total 750 Balance -400 480 Intake, Oral 350 480 Output, Urine 750 Physical Exam General Appearance: sleeping, drowsy but arousable HEENT: Atraumatic, Mucous Membr. moist/pink Cardiovascular: Regular Rate, Normal S1, Normal S2 Lungs: Clear to Auscultation (anteriorly ) Abdomen: Normal Bowel Sounds, Soft, No Tenderness Extremities: Normal Pulses Assessment/Plan Assessment: Pt is a 66-year-old male with PMH of alcohol dependence, hypertension, transaminitis presented to ED requesting alcohol detox. Patient was admitted to ICU and was started on Ativan drip and initially on Librium 75 mg every Q6. Was found to have PSVT/SVT this admission. Patient was transferred to the general medicine floor and is being managed for the followin. Alcohol detox - transferred from ICU on: Librium 50mg q6h and ativan PRN - CIWA highest over 24 hr: 18, currently: 0 (sleeping) - pt was extremely agitated last night, requiring multiple doses of ativan will keep librium at 50mg q12h and will continue ativan PRN - on 1:1 sitter 2. PSVT/SVT - cardiology following, will follow recommendations - HR: 64-78, will continue metoprolol 12.5mg BID - ECHO: no evidence of alcoholic cardiomyopathy 3. Alcohol dependence - continue thiamine PO 100mg, folic acid, multivitamin - psych consulted DVT PPx: ALPS Diet: Regular Code: Full Problem List: 1. Paroxysmal SVT (supraventricular tachycardia) 2. Transaminitis 3. Alcohol withdrawal 4. Alcohol dependence syndrome Pain Ratin Pain Location: none Pain Goal: Remain pain free Pain Plan: none Tomorrow's Labs & Rationales: none
[2016-10-20] VITALS (12 sets, daily range): BP systolic 120–164; BP diastolic 70–108
--- NOTE | 2016-10-20 09:03 | PN- Housestaff ---
TERENCE TERRAZAS,CHRISTINA 10/20/16 0902: Subjective Follow-up For: Alcohol detox, Alcohol dependence, PSVT, Transaminitis Subjective: As per nursing: pt required ativan PRN x5 overnight As per sitter: pt was agitated and trying to get out of bed. I saw and examined the patient this AM. Pt was drowsy and appeared to be hallucinating. Did not answer questions. Review of Systems Constitutional: Denies: see HPI. Objective Last 24 Hrs of Vital Signs/I&O Vital Signs Date Time Temp Pulse Resp B/P B/P Pulse O2 O2 Flow FiO2 Mean Ox Delivery Rate 10/20 1343 100.1 65 20 120/72 92 / 0600 98.0 67 18 158/80 / 0600 98.0 67 18 158/80 92 / 0505 98.8 64 18 130/84 /07 0400 98.8 64 18 130/84 /07 0240 98.8 64 18 130/84 /07 0141 98.8 64 18 130/84 /07 0050 98.8 64 18 130/84 /06 2352 98.8 64 18 130/84 /06 2211 98.8 64 16 130/84 91 /06 2200 98.8 64 18 130/84 /06 2138 98.8 64 18 130/84 /06 2000 98.9 64 18 132/70 07/06 1947 98.9 64 18 132/70 Intake & Output / 1600 07/07 0800 07/ 0000 Intake Total 600 50 100 Output Total 350 0 550 Balance 250 50 -450 Intake, Oral 600 50 100 Output, Urine 350 0 550 Physical Exam General Appearance: No Acute Distress, drowsy Cardiovascular: Regular Rate, Normal S1, Normal S2 Lungs: Clear to Auscultation (anteriorly) Abdomen: Normal Bowel Sounds, Soft, No Tenderness Extremities: No Edema, Normal Pulses Assessment/Plan Assessment: Pt is a 66-year-old male with PMH of alcohol dependence, hypertension, transaminitis presented to ED requesting alcohol detox. Patient was admitted to ICU and was started on Ativan drip and initially on Librium 75 mg every Q6. Was found to have PSVT/SVT this admission. Patient was transferred to the general medicine floor and is being managed for the followin. Alcohol detox - transferred from ICU on: Librium 50mg q6h and ativan PRN - CIWA highest over 24 hr: 16, currently: 0 (sleeping) - pt required 5 doses of ativan PRN overnight. However continues to be drowsy during the day. Will decrease librium to 25 q8h from 50 q8h and ativan to q4h from q1h - on 1:1 sitter 2. PSVT/SVT - cardiology following, will follow recommendations - HR: 64-67, will continue metoprolol 12.5mg BID - ECHO: no evidence of alcoholic cardiomyopathy 3. Alcohol dependence - continue thiamine PO 100mg, folic acid, multivitamin - psych consulted DVT PPx: ALPS Diet: Regular Code: Full Problem List: 1. Alcohol withdrawal 2. Alcohol dependence syndrome 3. Paroxysmal SVT (supraventricular tachycardia) 4. Transaminitis Pain Ratin Pain Location: none Pain Goal: Remain pain free Pain Plan: none Tomorrow's Labs & Rationales: none ONEIDA TERRAZAS,MACKENZIE 10/20/16 1428: Attending MD Review Statement Attending Statement Attending MD Statement: examined this patient, discuss w/resident/PA/DIRECTOR HAIR, agreed w/resident/PA/DIRECTOR HAIR, reviewed EMR data (avail), discussed with nursing, discussed with case mgmt, reviewed images, amended to note Attending Assessment/Plan: patient seen and examined, still very sleepy. CIWA scores were acceptable. Vital Signs Date Time Temp Pulse Resp B/P B/P Pulse O2 O2 Flow FiO2 Mean Ox Delivery Rate 10/20 1343 100.1 65 20 120/72 92 07/07 0600 98.0 67 18 158/80 07/07 0600 98.0 67 18 158/80 92 07/07 0505 98.8 64 18 130/84 07/07 0400 98.8 64 18 130/84 07/07 0240 98.8 64 18 130/84 07/07 0141 98.8 64 18 130/84 07/07 0050 98.8 64 18 130/84 07/06 2352 98.8 64 18 130/84 07/06 2211 98.8 64 16 130/84 91 07/06 2200 98.8 64 18 130/84 07/06 2138 98.8 64 18 130/84 /06 2000 98.9 64 18 132/70 07/06 1947 98.9 64 18 132/70 on exam; sleepy, nad. cv; s1,s2, rrr resp; clear abd; soft, nt, bs+ ext; no edema. Labs; None. A/P: 66-year-old male with history significant for hypertension, alcohol dependence who was admitted with acute alcohol intoxication needing detox. Patient had been started on benzodiazepine. He also had episodes of paroxysmal supraventricular tachycardia and has been kept on beta ankru. Will decrease the dose of librium to 25 q8 and ativan 1 mg q4 as needed. Continue thiamine, folic acid and MVI> DVT px; Hep sq Pt has no documented BM in last 5 days, needs more aggressive bowel regimen.
--- NOTE | 2016-10-20 12:25 | PN- Cardiology ---
Subjective Subjective: Remains a lethargic. Still getting Librium and when necessary Ativan. Objective Vital Signs and I&Os Vital Signs Date Time Temp Pulse Resp B/P B/P Pulse O2 O2 Flow FiO2 Mean Ox Delivery Rate 10/20 06 98.0 67 18 158/80 / 0600 98.0 67 18 158/80 92 /07 0505 98.8 64 18 130/84 07/07 0400 98.8 64 18 130/84 /07 0240 98.8 64 18 130/84 07/07 0141 98.8 64 18 130/84 07/07 0050 98.8 64 18 130/84 07/06 2352 98.8 64 18 130/84 07/06 2211 98.8 64 16 130/84 91 / 2200 98.8 64 18 130/84 /06 2138 98.8 64 18 130/84 /06 2000 98.9 64 18 132/70 /06 1947 98.9 64 18 132/70 07/06 1428 98.9 64 20 132/70 93 Room Air 10/19 1342 150/70 Intake & Output 10/20 1600 10/20 0800 / 0000 10/19 1600 10/19 0800 10/19 0000 Intake Total 50 100 350 480 Output Total 0 550 750 Balance 50 -450 -400 480 Intake, Oral 50 100 350 480 Output, Urine 0 550 750 Physical Exam: General: no apparent distress. Lethargic. Eyes: No obvious scleral icterus. HEENT: No jugular venous distention or abnormal jugular venous pulsations. Cardiovascular: Normal intensity S1/S2. Regular. Respiratory: No rales or rhonchi Abdomen: no guarding or rebound tenderness. Musculoskeletal: No clubbing or cyanosis noted, no edema Skin: warm Current Medications: Current Medications Sig/Will Start time Last Medication Dose Route Stop Time Status Admin Acetaminophen 650 MG Q6P PRN 10/11 2230 AC PO Chlordiazepoxide HCl 25 MG Q8 10/20 1400 AC PO Chlordiazepoxide HCl 50 MG Q12 10/18 2200 DC 10/19 PO 213 Cyclobenzaprine HCl 5 MG BID 10/11 2239 AC 10/20 PO 1003 Folic Acid 1 MG DAILY 10/17 1000 AC 10/20 PO 1003 Haloperidol 1 MG ONCE PRN 10/12 1300 AC 07/03 IM 2136 Heparin Sodium 5,000 UNIT Q8 10/19 1400 AC 10/20 (Porcine) SC 0637 Hydromorphone HCl 0.5 MG Q4P PRN 10/11 2230 AC 10/16 IV 2331 Lorazepam 0 Q4P PRN 10/20 0915 AC IV Lorazepam 0 Q1P PRN 10/16 0945 DC 10/20 IV 0406 Metoprolol Tartrate 12.5 MG BID 10/18 2200 AC 10/20 PO 1003 Multivitamins 1 TAB DAILY 10/12 1000 AC 10/20 PO 1002 Ondansetron HCl 4 MG Q6P PRN 10/11 2345 AC IV Oxycodone HCl 5 MG Q6P PRN 10/11 2300 AC 10/18 PO 2246 Polyethylene Glycol 17 GM AT BEDTIME 10/12 2200 AC 10/19 PO 2138 Senna/Docusate Sodium 2 TAB AT BEDTIME 10/12 2200 AC 10/19 PO 2137 Thiamine HCl 100 MG DAILY 10/18 1000 AC 10/20 PO 1002 Results Last 48 Hrs of Labs/Mics: Laboratory Tests 10/19/16 0710: Calcium 9.0, Magnesium 1.8, Total Bilirubin 1.0, Direct Bilirubin 0.3, AST 69 H , ALT 86 H, Alkaline Phosphatase 68, Total Protein 5.7 L, Albumin 3.5 Recent Imaging Studies: Not currently on telemetry Assessment/Plan Assessment/Plan 1. EtOH abuse 2. EtOH withdrawal 3. Paroxysmal supraventricular tachycardia in the setting of EtOH withdrawal 4. History of hypertension 5. Abnormal LFTs Patient remains lethargic and still requiring Librium and when necessary Ativan. Heart rate is stable on the current metoprolol dose. We can resume outpatient Norvasc for elevated blood pressure. Continue EtOH detox protocols. Leonel Camacho MD [facility] Continue telemetry? Not applicable
[2016-10-21] VITALS (8 sets, daily range): BP systolic 110–180; BP diastolic 61–108
--- NOTE | 2016-10-21 08:45 | PN- Housestaff ---
TERENCE TERRAZAS,CHRISTINA 10/21/16 0845: Subjective Follow-up For: Alcohol detox, Alcohol dependence, PSVT, Transaminitis Subjective: I saw and examined the patient this morning. Patient was more alert oriented 3. Patient continues to have hallucinations. States he can see" brain cells." Patient denies tremors, chest pain, shortness of breath, cough, fever, chills, nausea, vomiting or abdominal pain. As per nursing patient's CIWA 0. As per sitter patient has not been agitated and has been more awake. Review of Systems Constitutional: Denies: see HPI. Objective Last 24 Hrs of Vital Signs/I&O Vital Signs Date Time Temp Pulse Resp B/P B/P Pulse O2 O2 Flow FiO2 Mean Ox Delivery Rate 10/21 1243 97.3 10/21 0932 156/80 10/21 0931 156/80 / 0612 100.5 / 0608 100.5 85 20 156/80 91 /08 0600 100.5 85 20 156/80 /08 0200 99.0 96 16 180/84 07/08 0100 96 16 180/84 07/08 0000 99.2 98 22 164/108 07/07 2235 99.2 98 22 164/108 94 Room Air /07 2200 98.9 66 18 124/72 07/07 2000 98.9 68 18 124/74 07/07 1800 98.1 68 18 122/72 07/07 1600 99.0 66 20 120/70 07/07 1343 100.1 65 20 120/72 92 Intake & Output /08 1600 07/08 0800 07/08 0000 Intake Total 240 Output Total 400 1300 Balance -160 -1300 Intake, Oral 240 Output, Urine 400 1300 Physical Exam General Appearance: Oriented X3, Cooperative, No Acute Distress, more alert than yesterday Cardiovascular: Regular Rate, Normal S1, Normal S2 Lungs: Clear to Auscultation (anteriorly) Abdomen: Normal Bowel Sounds, Soft, No Tenderness Neurological: Normal Gait (speech is slurred) Extremities: Normal Pulses Assessment/Plan Assessment: Pt is a 66-year-old male with PMH of alcohol dependence, hypertension, transaminitis presented to ED requesting alcohol detox. Patient was admitted to ICU and was started on Ativan drip and initially on Librium 75 mg every Q6. Was found to have PSVT/SVT this admission. Patient was transferred to the general medicine floor and is being managed for the followin. Alcohol detox - transferred from ICU on: Librium 50mg q6h and ativan PRN - CIWA highest over 24 hr: , currently: 0 (awake) - pt required 5 doses of ativan PRN overnight. However continues to be drowsy during the day. Will decrease librium to 25 q12H from 25 q12h and continue ativan to q4h PRN - on 1:1 sitter 2.PSVT/SVT - cardiology following, will follow recommendations - HR: 64-67, will continue metoprolol 12.5mg BID - ECHO: no evidence of alcoholic cardiomyopathy 3. Alcohol dependence - continue thiamine PO 100mg, folic acid, multivitamin - psych consulted 4. Fever - pt spiking fevers: last: 101.4, saturating well on room air - CXR: no evidence for acute disease - WBC, U/A and blood cultures ordered DVT PPx: ALPS Diet: Regular Code: Full Problem List: 1. Alcohol dependence syndrome 2. Alcohol withdrawal 3. Paroxysmal SVT (supraventricular tachycardia) 4. Transaminitis Pain Ratin Pain Location: none Pain Goal: Remain pain free Pain Plan: none Tomorrow's Labs & Rationales: BETSY OSEI MD,MORALEZ 10/21/16 1212: Attending MD Review Statement Attending Statement Attending MD Statement: examined this patient, discuss w/resident/PA/REHAB THERAPY MANAGER, discussed with family, reviewed EMR data (avail), discussed with nursing, reviewed images, amended to note Attending Assessment/Plan: 66-year-old male with past medical history significant for hypertension, alcohol dependence has been admitted to the floor for acute alcoholic intoxication. Patient was seen and examined on the bedside and was found that the patient is extremely lethargic. Patient was also found to be coughing with bilateral rhonchi on his chest examination, also found to have spikes of fever overnight. Given his extreme drowsiness, will discontinue his muscle relaxants, will taper down on his benzodiazepines and will order aggressive chest physiotherapy for possible atelectasis. We'll order a chest x-ray. Please order urinalysis and blood cultures if he continues to spike fever. Patient will remain on the floor over the weekend.
--- NOTE | 2016-10-21 13:39 | RADIOLOGY REPORT ---
EXAMINATION: XR PORTABLE CHEST CLINICAL INFORMATION: Shortness of breath COMPARISON: Previous chest x-ray most recent 10/15/2016 TECHNIQUE: Portable frontal view of the chest was obtained. FINDINGS: The cardiac and mediastinal contours are stable. The lung volumes are low. The lungs are clear. There is no pleural effusion or pneumothorax. IMPRESSION: Low lung volumes. No evidence for acute disease in the chest.
[2016-10-22 00:48] VITALS: BP 122/80
[2016-10-22 07:20] VITALS: BP 140/86
[2016-10-22 08:25] LABS: ABSOLUTE BASOPHIL COUNT 0 /CUMM (0.0-0.2); ABSOLUTE EOSINOPHIL COUNT 0.2 /CUMM (0.0-0.7); ABSOLUTE GRANULOCYTE CT 7.5 /CUMM (1.4-6.5); ABSOLUTE LYMPH COUNT 1.2 /CUMM (1.2-3.4); ABSOLUTE MONOCYTE COUNT 1.3 /CUMM (0.10-0.60); BASOPHIL % 0.4 % (0.0-2.0); EOSINOPHIL % 1.7 % (0-5); GRANULOCYTE % 73.2 % (42.2-75.2); HEMATOCRIT 41.7 % (42-52); MEAN CORPUSCULAR HGB 32.8 PG (27.0-31.0); MEAN CORPUSCULAR HGB CONC 33.8 G/DL (33.0-37.0); MEAN PLATELET VOLUME 8.4 FL (7.4-10.4); RBC DISTRIBUTION WIDTH 12.7 % (11.5-14.5)
[2016-10-22 09:45] LABS: PLATELET COUNT 237 /CUMM (130-400); WHITE BLOOD CELL COUNT 10.2 /CUMM (4.8-10.8)
--- NOTE | 2016-10-22 10:12 | PN- Housestaff ---
TERENCE TERRAZAS,CHRISTINA 10/22/16 1011: Subjective Follow-up For: Alcohol detox, Alcohol dependence, PSVT, Transaminitis Subjective: I saw and examined the patient this morning. Patient more alert today. Patient denies tremors, chest pain, shortness of breath, cough, fever, chills, nausea, vomiting or abdominal pain. As per nursing patient's CIWA < 8 not requiring ativan overnight. Patient is eating more today. Review of Systems Constitutional: Denies: see HPI. Objective Last 24 Hrs of Vital Signs/I&O Vital Signs Date Time Temp Pulse Resp B/P B/P Pulse O2 O2 Flow FiO2 Mean Ox Delivery Rate 10/23 1599 Room Air 10/22 1414 98.3 78 18 132/74 94 Room Air 10/22 1213 72 118/72 10/22 1200 99.5 72 18 118/72 93 Room Air 10/22 0800 Room Air / 0720 98.8 76 18 140/86 96 / 0048 98.9 73 20 122/80 92 10/21 2307 100.0 10/21 2206 101.2 10/21 2204 101.2 / 2200 80 18 126/68 92 Room Air 10/21 2106 101.4 /08 2105 80 126/68 Intake & Output 10/22 1600 10/22 0800 / 0000 Intake Total 1280 800 560 Output Total 401 410 100 Balance 879 390 460 Intake, IV 600 800 200 Intake, Oral 680 360 Output, Stool 1 Output, Urine 400 410 100 Physical Exam General Appearance: Alert, Cooperative, No Acute Distress Cardiovascular: Regular Rate, Normal S1, Normal S2 Lungs: Clear to Auscultation Abdomen: Normal Bowel Sounds, Soft, No Tenderness Extremities: Normal Pulses Assessment/Plan Assessment: Pt is a 66-year-old male with PMH of alcohol dependence, hypertension, transaminitis presented to ED requesting alcohol detox. Patient was admitted to ICU and was started on Ativan drip and initially on Librium 75 mg every Q6. Was found to have PSVT/SVT this admission. Patient was transferred to the general medicine floor and is being managed for the followin. Alcohol detox - transferred from ICU on: Librium 50mg q6h and ativan PRN - CIWA highest over 24 hr: 12, currently: 0 (awake) - pt did not require any ativan PRN overnight will taper librium - on 1:1 sitter 2.PSVT/SVT - cardiology following, will follow recommendations - HR: 64-67, will continue metoprolol 12.5mg BID - ECHO: no evidence of alcoholic cardiomyopathy 3. Alcohol dependence - continue thiamine PO 100mg, folic acid, multivitamin - psych consulted 4. Fever - afebrile today, saturating well on room air - CXR: no evidence for acute disease - WBC trending up, continue to monitor , U/A negative and blood and urine cultures negative to date DVT PPx: ALPS Diet: Regular Code: Full Problem List: 1. Alcohol withdrawal 2. Alcohol dependence syndrome 3. Paroxysmal SVT (supraventricular tachycardia) 4. Transaminitis Pain Ratin Pain Location: none Pain Goal: Remain pain free Pain Plan: none Tomorrow's Labs & Rationales: cbc bep FARNAZ TERRAZAS,MORALEZ 10/22/16 1033: Attending MD Review Statement Attending Statement Attending MD Statement: examined this patient, discuss w/resident/PA/DIRECTOR OF CHANNEL MARKETING, agreed w/resident/PA/DIRECTOR OF CHANNEL MARKETING, reviewed EMR data (avail), discussed with nursing, reviewed images, amended to note Attending Assessment/Plan: 66-year-old male with past medical history significant for hypertension, alcohol dependence has been admitted to the floor for acute alcoholic intoxication. Patient was seen and examined on the bedside and was found more alert and oriented. He was able to tell me his name and where he is. Patient has also been able to tolerate food without any aspiration, though he spiked fever once again last night. Chest x-ray showed low lung volumes with no evidence of acute infection. Urine cultures has been sent out. He is doing much better after discontinuing his Flexeril, currently his benzos are being slowly and gradually tapered. We will continue to do chest physiotherapy and will get incentive spirometry. Will try to get him out of the bed with the help of physical therapy.
[2016-10-22 11:15] VITALS: BP 118/72
[2016-10-22 12:00] VITALS: BP 118/72
[2016-10-22 14:14] VITALS: BP 132/74
[2016-10-22 22:42] VITALS: BP 130/62
[2016-10-23 06:00] VITALS: BP 146/74
[2016-10-23 08:00] VITALS: BP 146/74
[2016-10-23 08:18] LABS: ABSOLUTE BASOPHIL COUNT 0 /CUMM (0.0-0.2); ABSOLUTE EOSINOPHIL COUNT 0.3 /CUMM (0.0-0.7); ABSOLUTE GRANULOCYTE CT 5.4 /CUMM (1.4-6.5); ABSOLUTE LYMPH COUNT 1.1 /CUMM (1.2-3.4); ABSOLUTE MONOCYTE COUNT 0.9 /CUMM (0.10-0.60); BASOPHIL % 0.3 % (0.0-2.0); EOSINOPHIL % 3.5 % (0-5); GRANULOCYTE % 69.9 % (42.2-75.2); MEAN CORPUSCULAR HGB 33.4 PG (27.0-31.0); MEAN CORPUSCULAR HGB CONC 34.7 G/DL (33.0-37.0); MEAN CORPUSCULAR VOLUME 96.3 FL (80.0-94.0); MEAN PLATELET VOLUME 8.3 FL (7.4-10.4); PLATELET COUNT 258 /CUMM (130-400); RBC DISTRIBUTION WIDTH 12.6 % (11.5-14.5); RED BLOOD CELL CT 4.05 /CUMM (4.70-6.10); WHITE BLOOD CELL COUNT 7.8 /CUMM (4.8-10.8)
--- NOTE | 2016-10-23 11:56 | PN- Housestaff ---
TERENCE TERRAZAS,CHRISTINA 10/23/16 1137: Subjective Follow-up For: Alcohol detox, Alcohol dependence, PSVT, Transaminitis Subjective: I saw and examined the patient this morning. Patient more alert today. Denies auditory or visual hallucinations. Patient denies tremors, chest pain, shortness of breath, cough, fever, chills, nausea, vomiting or abdominal pain. As per nursing patient's CIWA 3 or less not requiring ativan overnight. Patient has not had any issues urinating. Is tolerating PO intake. Review of Systems Constitutional: Denies: see HPI. Objective Last 24 Hrs of Vital Signs/I&O Vital Signs Date Time Temp Pulse Resp B/P B/P Pulse O2 O2 Flow FiO2 Mean Ox Delivery Rate 10/23 0909 62 146/74 07/ 0909 62 146/74 10/23 0800 97.8 62 18 146/74 07/ 0600 97.8 62 18 146/74 94 / 2242 99.0 70 20 130/62 92 Room Air 10/22 2203 70 130/62 10/22 1600 Room Air 10/22 1414 98.3 78 18 132/74 94 Room Air / 1213 72 118/72 07/09 1200 99.5 72 18 118/72 93 Room Air Intake & Output 10/23 1600 /10 0800 07/ 0000 Intake Total 800 1300 Output Total 1710 500 Balance -910 800 Intake, IV 800 800 Intake, Oral 500 Output, Urine 1710 500 Physical Exam General Appearance: Alert, Oriented X3, Cooperative, No Acute Distress Cardiovascular: Regular Rate, Normal S1, Normal S2 Lungs: Clear to Auscultation Abdomen: Normal Bowel Sounds, Soft, No Tenderness Extremities: No Edema, Normal Pulses Assessment/Plan Assessment: Pt is a 66-year-old male with PMH of alcohol dependence, hypertension, transaminitis presented to ED requesting alcohol detox. Patient was admitted to ICU and was started on Ativan drip and initially on Librium 75 mg every Q6. Was found to have PSVT/SVT this admission. Patient was transferred to the general medicine floor and is being managed for the followin. Alcohol detox - transferred from ICU on: Librium 50mg q6h and ativan PRN - CIWA overnight has been 3, currently: 0 (awake) - pt did not require any ativan PRN overnight will taper librium from 25mg BID to 25mg daily and decreased to 10 bid tomorrow if doing well - on 1:1 sitter 2.PSVT/SVT - cardiology following, will follow recommendations - HR: 64-67, will continue metoprolol 12.5mg BID - ECHO: no evidence of alcoholic cardiomyopathy 3. Alcohol dependence - continue thiamine PO 100mg, folic acid, multivitamin - psych consulted 4. Fever - resolved - afebrile today, saturating well on room air - CXR: no evidence for acute disease, but low lung volumes- ordered incentive spirometry - WBC normal , U/A negative and blood and urine cultures negative to date DVT PPx: ALPS Diet: Regular Code: Full Problem List: 1. Alcohol withdrawal 2. Transaminitis 3. Paroxysmal SVT (supraventricular tachycardia) Pain Ratin Pain Location: none Pain Goal: Remain pain free Pain Plan: none Tomorrow's Labs & Rationales: none MACKENZIE MOHAMUD MD 10/23/16 1337: Attending MD Review Statement Attending Statement Attending MD Statement: examined this patient, discuss w/resident/PA/CAKE PRESS OPERATOR, agreed w/resident/PA/CAKE PRESS OPERATOR, reviewed EMR data (avail), discussed with nursing, discussed with case mgmt, reviewed images, amended to note Attending Assessment/Plan: Patient seen and examined, more awake today. Librium is on taper. Vital Signs Date Time Temp Pulse Resp B/P B/P Pulse O2 O2 Flow FiO2 Mean Ox Delivery Rate 10/23 0909 62 146/74 10/23 0909 62 146/74 10/23 0800 97.8 62 18 146/74 10/23 0600 97.8 62 18 146/74 94 10/22 2242 99.0 70 20 130/62 92 Room Air 10/22 2203 70 130/62 10/22 1600 Room Air 10/22 1414 98.3 78 18 132/74 94 Room Air on exam; more awake today. cv; s1,s2, rrr resp; clear abd; soft, nt, bs+ ext; no edema. Laboratory Tests 10/23 07 Chemistry Sodium (137 - 145 mmol/L) 138 Potassium (3.5 - 5.1 mmol/L) 3.9 Chloride (98 - 107 mmol/L) 105 Carbon Dioxide (22 - 30 mmol/L) 25 Anion Gap (5 - 16) 8 BUN (9 - 20 mg/dL) 7 L Creatinine (0.7 - 1.2 mg/dL) 0.7 Estimated GFR (>60 ml/min) > 60 BUN/Creatinine Ratio (7 - 25 %) 10.0 Phosphorus (2.5 - 4.5 mg/dL) 3.1 Magnesium (1.6 - 2.3 mg/dL) 2.0 Hematology CBC w Diff NO MAN DIFF REQ WBC (4.8 - 10.8 /CUMM) 7.8 RBC (4.70 - 6.10 /CUMM) 4.05 L Hgb (14.0 - 18.0 G/DL) 13.6 L Hct (42 - 52 %) 39.0 L MCV (80.0 - 94.0 FL) 96.3 H MCH (27.0 - 31.0 PG) 33.4 H RDW (11.5 - 14.5 %) 12.6 Plt Count (130 - 400 /CUMM) 258 MPV (7.4 - 10.4 FL) 8.3 Gran % (42.2 - 75.2 %) 69.9 Lymphocytes % (20.5 - 51.1 %) 14.3 L Monocytes % (1.7 - 9.3 %) 12.0 H Eosinophils % (0 - 5 %) 3.5 Basophils % (0.0 - 2.0 %) 0.3 Absolute Granulocytes (1.4 - 6.5 /CUMM) 5.4 Absolute Lymphocytes (1.2 - 3.4 /CUMM) 1.1 L Absolute Monocytes (0.10 - 0.60 /CUMM) 0.9 H Absolute Eosinophils (0.0 - 0.7 /CUMM) 0.3 Absolute Basophils (0.0 - 0.2 /CUMM) 0 PUBS MCHC (33.0 - 37.0 G/DL) 34.7 A/P; 66-year-old male with history significant for hypertension, alcohol dependence who was admitted with acute alcohol intoxication needing detox. Patient had been kept on benzodiazepine. He also had episodes of paroxysmal supraventricular tachycardia and has been kept on beta ankur. BP stable. Pt on librium taper. Will continue to taper librium. Continue current BB dose. Continue all other current meds. DVT Px; Hep sq. PT eval. Might need Rehab. Possible DC tomorrow.
[2016-10-23 14:47] VITALS: BP 152/90
[2016-10-23] MEDS ORDERED: ONE DAILY MULT1 EAC2 PO (20:33)
[2016-10-23] MEDS ORDERED: VITAMIN B-1100 MG PO (20:33)
[2016-10-23] MEDS ORDERED: FOLIC ACID1 M1 PO (20:33)
[2016-10-23 23:37] VITALS: BP 150/70
[2016-10-24] VITALS: BP 150/70
--- NOTE | 2016-10-24 07:24 | PN- Housestaff ---
TERENCE TERRAZAS,CHRISTINA 10/24/16 0723: Subjective Follow-up For: Alcohol detox Subjective: I saw and examined the patient today. Pt was more alert today and oriented x3. Pt denies tremors, hallucinations, fever, chills, n/v, chest pain or SOB. As per overnight team: pt was threatening a nurse, rocio placed As per sitter: pt wanted to get out of bed to walk Review of Systems Constitutional: Denies: see HPI. Objective Last 24 Hrs of Vital Signs/I&O Vital Signs Date Time Temp Pulse Resp B/P B/P Pulse O2 O2 Flow FiO2 Mean Ox Delivery Rate 10/24 1427 97.9 75 20 124/82 97 Room Air 10/24 0925 99.0 65 18 122/62 10/24 0925 65 122/62 10/24 0925 99.0 65 18 122/62 93 Room Air 10/24 0000 97.6 60 20 150/70 10/23 2337 97.6 60 20 150/70 98 10/23 2133 82 130/78 Intake & Output 10/24 1600 10/24 0800 10/24 0000 Intake Total 450 250 Output Total 700 800 Balance 450 -450 -800 Intake, IV 0 10 Intake, Oral 450 240 Number 1 0 Bowel Movements Output, Urine 700 800 Physical Exam General Appearance: Alert, Oriented X3, Cooperative, No Acute Distress Cardiovascular: Regular Rate, Normal S1, Normal S2 Lungs: Clear to Auscultation Abdomen: Normal Bowel Sounds, Soft, No Tenderness Extremities: Normal Pulses Assessment/Plan Assessment: Pt is a 66-year-old male with PMH of alcohol dependence, hypertension, transaminitis presented to ED requesting alcohol detox. Patient was admitted to ICU and was started on Ativan drip and initially on Librium 75 mg every Q6. Was found to have PSVT/SVT this admission. Patient was transferred to the general medicine floor and is being managed for the followin. Alcohol detox - transferred from ICU on: Librium 50mg q6h and ativan PRN - pt received librium 10mg once today. Will discontinue librium - CIWA highest at 24: 8, currently: 0 (awake) - pt did not require any ativan PRN overnight - chalino silvered - pt is more alert, not requiring ativan for agitation 2.PSVT/SVT - cardiology following, will follow recommendations - HR: 64-67, will continue metoprolol 12.5mg BID - ECHO: no evidence of alcoholic cardiomyopathy 3. Alcohol dependence - continue thiamine PO 100mg, folic acid, multivitamin 4. Fever - resolved - afebrile today, saturating well on room air - CXR: no evidence for acute disease, but low lung volumes- ordered incentive spirometry - WBC normal , U/A negative and blood and urine cultures negative to date DVT PPx: ALPS Diet: Regular Code: Full Dispo: anticipated discharge tomorrow to [facility] pending no requirement for rocio/ sitter/ativan Problem List: 1. Paroxysmal SVT (supraventricular tachycardia) 2. Transaminitis 3. Alcohol withdrawal 4. Alcohol dependence syndrome Pain Ratin Pain Location: none Pain Goal: Remain pain free Pain Plan: none Tomorrow's Labs & Rationales: none ONEIDA TERRAZAS,[facility] 10/24/16 1531: Attending MD Review Statement Attending Statement Attending MD Statement: examined this patient, discuss w/resident/PA/DEPUTY K 9, agreed w/resident/PA/DEPUTY K 9, reviewed EMR data (avail), discussed with nursing, discussed with case mgmt, reviewed images, amended to note Attending Assessment/Plan: Patient seen and examined, much more awake and sitting in the chair. He was able to participate with physical therapy today. He will be finished with his Librium taper and we can stop checking his CIWA scoring as well as we'll stop all the Ativan. Hemodynamically stable. Patient does not require Hall or sitter. He needs to go to a physical short-term rehabilitation. Family meeting arranged with patient's for tomorrow to discuss disposition plan.
[2016-10-24 09:25] VITALS: BP 122/62
[2016-10-24 14:27] VITALS: BP 124/82
--- NOTE | 2016-10-24 14:59 | Discharge Summary ---
Visit Information Visit Dates Admission Date: 10/11/16 Discharge Date: 10/26/2016 Hospital Course Course Attending Physician: MACKENZIE MOHAMUD MD Primary Care Physician: KARSTEN BRANDON MD Hospital Course: Mr. Christianson 66-year-old gentleman with past medical history of alcohol dependence, hypertension, transaminitis presented to ED requesting alcohol detox. In ED patient developed 2 episodes of nonsustained supraventricular tachycardia which resolved spontaneously without any intervention. His LFTs were elevated likely 2/2 alcoholic hepatitis. Patient was admitted in tele for close monitoring and was started on Ativan drip 2 mg every 6 hours IV which was titrated according to CIWA score. On day 2 of hospital admission code 7 was called when Mr. christianson was very agitated and required restraints. Decison was made to transfer the pt to the ICU for closer monitoring. Was placed on ativan drip and subsequently changed to Librium taper. He got IV vitamins and banana bag. He has a required a 1:1 sitter given agitation and elopement risk. He was seen by cardiology for optimal BP and arrhythmia management. LFTs trended as did CIWA score. No repeat episodes of arrhythmia so pt was transferred back to [facility] for rest of treatment. * Follow up with PCP * Will require Out patient detox * continue multivitamin/folic acid * Con't BP regimen of Amlodipine and Metoprolol 12.5 bid Allergies: Coded Allergies: No Known Allergies (10/11/16) Disposition Summary Disposition Principal Diagnosis: etoh detox Additional Diagnosis: SVT Discharge Disposition: SNF Discharge Instructions General Discharge Information Code Status: Full Code Patient's Diet: TOLERATED Patient's Activity: TOLERATED. OOB Follow-Up Instructions/Appts: SEE ABOVE Medications at Discharge Discharge Medications: Continue taking these medications: Amlodipine Besylate (Amlodipine Besylate) 10 MG TABLET 1 Tablet ORAL DAILY Qty = 90 Comments: Last Taken: 10/24/16 Time: 09:30 AM Start taking the following new medications: Metoprolol Tartrate (Metoprolol Tartrate) 25 MG TABLET 0.5 Tablet ORAL TWICE DAILY Qty = 30 No Refills Comments: Last Taken: 10/26/16 Time: 10:00 AM Folic Acid (Folic Acid) 1 MG TABLET 1 Milligram ORAL DAILY Qty = 30 No Refills Comments: Last Taken: 10/26/16 Time: 10:00 AM Thiamine HCl (Vitamin B-1) 100 MG TABLET 100 Milligram ORAL DAILY Qty = 30 No Refills Comments: Last Taken: 10/26/16 Time: 10:00 AM Multivitamin (One Daily Multivitamin) 1 EACH TABLET 1 Tablet ORAL DAILY Qty = 30 No Refills Comments: Last Taken: 10/26/16 Time: 10:00 AM Copies To: ROMA TERRAZAS,KARSTEN Luo Attending MD Review Statement Other Findings: Heart rate remained stable on current dose of beta ankur. Patient had a prolonged hospital course secondary to getting agitated and requiring benzodiazepines. It was a prolonged benzodiazepine taper. Did require sitter and her monitor as well as restraints during the hospital course. taker off braker machine was finally discontinued in the last 24 hours. Hemodynamics are stable. Lengthy meeting was held between patient, his as well as social work specialist case management and myself. After the meeting it was decided that patient will go to a short-term rehabilitation for physical rehabilitation and then afterwards will require intensive outpatient program for alcohol rehabilitation. Medicine as pains have been tapered off
[2016-10-24 22:02] VITALS: BP 118/78
[2016-10-25 06:38] VITALS: BP 140/80
[2016-10-25] MEDS ORDERED: METOPROLOL TART25 M1 PO (08:02)
--- NOTE | 2016-10-25 09:37 | PN- Housestaff ---
TERENCE TERRAZAS,CHRISTINA 10/25/16 0937: Subjective Follow-up For: Alcohol detox, PSVT, Transaminits Subjective: Saw and examined the patient. Pt had no complaints today. Denies tremors, hallucinations, chest pain, SOB, fever, chills, nausea, vomitting. PT worked with the patient today and was able to ambulate with assitance. As per nursing and overnight team: pt agitated but did not require ativan. Review of Systems Constitutional: Denies: see HPI. Objective Last 24 Hrs of Vital Signs/I&O Vital Signs Date Time Temp Pulse Resp B/P B/P Pulse O2 O2 Flow FiO2 Mean Ox Delivery Rate 10/25 0638 99.1 64 20 140/80 95 Room Air 10/24 2202 98.0 69 20 118/78 94 Room Air 10/24 2152 69 118/78 10/24 1534 Room Air Room Air 10/24 1427 97.9 75 20 124/82 97 Room Air Intake & Output 10/25 1600 10/25 0800 10/25 0000 Intake Total 250 Output Total 350 Balance -100 Intake, IV 10 Intake, Oral 240 Number 0 Bowel Movements Output, Urine 350 Physical Exam General Appearance: Alert, Oriented X3, Cooperative, No Acute Distress HEENT: Atraumatic, PERRLA, Mucous Membr. moist/pink Cardiovascular: Regular Rate, Normal S1, Normal S2 Lungs: Clear to Auscultation Abdomen: Normal Bowel Sounds, Soft, No Tenderness Assessment/Plan Assessment: Pt is a 66-year-old male with PMH of alcohol dependence, hypertension, transaminitis presented to ED requesting alcohol detox. Patient was admitted to ICU and was started on Ativan drip and initially on Librium 75 mg every Q6. Was found to have PSVT/SVT this admission. Patient was transferred to the general medicine floor and is being managed for the followin. Alcohol detox - transferred from ICU on: Librium 50mg q6h and ativan PRN - pt received librium 10mg once today. Will discontinue librium - CIWA protocol dc'ed - pt did not require any ativan PRN overnight - chalino dc'ed - pt is more alert, not requiring ativan for agitation 2.PSVT/SVT - cardiology following, will follow recommendations - HR: 64-67, will continue metoprolol 12.5mg BID - ECHO: no evidence of alcoholic cardiomyopathy - follow up with cardiology outpatient 3. Alcohol dependence - continue thiamine PO 100mg, folic acid, multivitamin 4. Fever - resolved - afebrile today, saturating well on room air - CXR: no evidence for acute disease, but low lung volumes- ordered incentive spirometry - WBC normal , U/A negative and blood and urine cultures negative to date DVT PPx: ALPS Diet: Regular Code: Full Dispo: anticipated discharge tomorrow to [facility] pending no requirement for rocio/ sitter/ativan, will be having a family meeting with this afternoon to discuss placement. Problem List: 1. Alcohol withdrawal 2. Paroxysmal SVT (supraventricular tachycardia) 3. Transaminitis 4. Alcohol dependence syndrome Pain Ratin Pain Location: none Pain Goal: Remain pain free Pain Plan: none Tomorrow's Labs & Rationales: none ONEIDA TERRAZAS,[facility] 10/25/16 1240: Attending MD Review Statement Attending Statement Attending MD Statement: examined this patient, discuss w/resident/PA/POST OFFICE MARKUP CLERK, agreed w/resident/PA/POST OFFICE MARKUP CLERK, reviewed EMR data (avail), discussed with nursing, discussed with case mgmt, reviewed images, amended to note Attending Assessment/Plan: Patient seen and examined, overall feeling better. He was up and walking with physical therapy today. He denies any aches or pains. He was agitated last night therefore he still requiring a sitter. This morning likely can DC the center and put on monitor. He hasn't required any Ativan but did require some Haldol. At this point family meeting is planned this afternoon when we discuss his disposition planning with his . Continue current regimen.
[2016-10-25 14:48] VITALS: BP 110/76
[2016-10-25 22:18] VITALS: BP 112/70
[2016-10-26 06:42] VITALS: BP 110/60
--- NOTE | 2016-10-26 07:38 | PN- Housestaff ---
TERENCE TERRAZAS,CHRISTINA 10/26/16 0738: Subjective Follow-up For: Alcohol detox, PSVT, Transaminits Subjective: Pt is doing well today. Has no complaints. Would like to know when he is leaving. Pt denies tremors, hallucinations, chest pain, SOB, fever, chills, nausea, vomitting. No longer requiring lean coach. As per nursing and overnight team: pt was calm and did not require ativan. Review of Systems Constitutional: Denies: see HPI. Objective Last 24 Hrs of Vital Signs/I&O Vital Signs Date Time Temp Pulse Resp B/P B/P Pulse O2 O2 Flow FiO2 Mean Ox Delivery Rate 10/26 1453 97.1 68 20 118/64 93 Room Air 10/26 1347 98.2 68 20 94/62 10/26 1045 68 94/62 10/26 1042 68 94/62 10/26 0852 Room Air Room Air 10/26 0642 98.2 62 20 110/60 93 Room Air 10/25 2310 62 112/70 10/25 2218 97.5 62 18 112/70 93 Room Air Intake & Output 10/26 1600 10/26 0800 10/26 0000 Intake Total 840 10 Output Total 250 Balance 840 -240 Intake, IV 10 Intake, Oral 840 Number 1 Bowel Movements Output, Urine 250 Physical Exam General Appearance: Alert, Oriented X3, Cooperative, No Acute Distress Cardiovascular: Regular Rate, Normal S1, Normal S2 Lungs: Clear to Auscultation Abdomen: Normal Bowel Sounds, Soft, No Tenderness Extremities: Normal Pulses Assessment/Plan Assessment: Pt is a 66-year-old male with PMH of alcohol dependence, hypertension, transaminitis presented to ED requesting alcohol detox. Patient was admitted to ICU and was started on Ativan drip and initially on Librium 75 mg every Q6. Was found to have PSVT/SVT this admission. Patient was transferred to the general medicine floor and is being managed for the followin. Alcohol detox - transferred from ICU on: Librium 50mg q6h and ativan PRN - pt off librium, not requiring ativan PRN - CIWA protocol dc'ed - not requiring lean coach 2.PSVT/SVT - cardiology following, will follow recommendations - HR: 64-67, will continue metoprolol 12.5mg BID - ECHO: no evidence of alcoholic cardiomyopathy - follow up with cardiology outpatient 3. Alcohol dependence - continue thiamine PO 100mg, folic acid, multivitamin 4. Fever - resolved - afebrile today, saturating well on room air - CXR: no evidence for acute disease, but low lung volumes- ordered incentive spirometry - WBC normal , U/A negative and blood and urine cultures negative to date DVT PPx: ALPS Diet: Regular Code: Full Dispo: pt has a bed in [facility] and is stable for discharge today Problem List: 1. Alcohol withdrawal 2. Alcohol dependence syndrome 3. Paroxysmal SVT (supraventricular tachycardia) 4. Transaminitis Pain Ratin Pain Location: none Pain Goal: Remain pain free Pain Plan: none Tomorrow's Labs & Rationales: none MACKENZIE MOHAMUD MD 10/26/16 1409: Attending MD Review Statement Attending Statement Attending MD Statement: examined this patient, discuss w/resident/PA/FARMWORKER DAIRY, agreed w/resident/PA/FARMWORKER DAIRY, reviewed EMR data (avail), discussed with nursing, discussed with case mgmt, reviewed images, amended to note Attending Assessment/Plan: Patient seen and examined, doing overall better. Remained off off the sitter as well as her monitor. Did not require any restraints. Did work with physical therapy and doing much better. Medically stable for discharge to rehabilitation today. We had a lengthy meeting with patient's yesterday who agreed for a physical rehabilitation and then outpatient follow-up for alcohol with intensive outpatient program.
[2016-10-26] MEDS ORDERED: METOPROLOL TART25 M1 PO (09:42)
[2016-10-26 13:47] VITALS: BP 94/62
[2016-10-26 14:53] VITALS: BP 118/64
== END 2016-10-26 15:15 | DRG 897 ==
LOC: ERH 13:07 → CRI 19:28 → 1NO 19:28 → ERHI 19:28 → 2NB 19:28 → CANRESERV 19:57 → ENRESERV 19:57 → EDBEDREQ 21:05 → ENRESERV 21:18 → ENTRNSPT 22:27 → 1NO 22:41 → CMPTRNSPT 23:00 → 1NO 23:07 → CRI 10-12 08:20 → 2NB 10-17 16:32 → ENPENDDIS 10-26 12:48 → 2NB 10-26 15:15
PROVIDERS: Emergency Medicine; Internal Medicine; Internal Medicine Endocrinology, Diabetes & Metabolism; Student in an Organized Health Care Education/Training Program; ADMIT Internal Medicine
DX: F10.231 Alcohol dependence with withdrawal delirium (principal); D69.6 Thrombocytopenia, unspecified; K70.10 Alcoholic hepatitis without ascites; I47.1 Supraventricular tachycardia; R44.3 Hallucinations, unspecified; E51.2 Wernicke's encephalopathy; J98.11 Atelectasis; Y90.7 Blood alcohol level of 200-239 mg/100 ml; I10 Essential (primary) hypertension; R74.0 Nonspecific elevation of levels of transaminase and lactic acid dehydrogenase [LDH]; Z78.1 Physical restraint status; M54.9 Dorsalgia, unspecified; G89.29 Other chronic pain; R50.9 Fever, unspecified
CPT/HCPCS: 1NP; 2NBSP; 2NSBP; CCU; 36415; 80307; 81001; 82436; 87040; 87086; 93005; 93010; 93306; 96374; 96375; 97110-GO; 97112-GO; 97116-GO; 97161-GP; 97530-GO; G0480; J0131; J1630; J1644; J2060; J2405; J3101; J3490; J7040

== ENCOUNTER 2017-04-10 16:54 | Inpatient (IN) | payer OTHER, MEDICARE ==
[~2017-04-10] VITALS: Ht 180.3 cm; Wt 90.7 kg
[~2017-04-10 16:54] MED LIST changes: +AMLODIPINE BESY10 M1 PO; +FOLIC ACID1 M1 PO; +METOPROLOL TART25 M1 PO; +ONE DAILY MULT1 EAC2 PO; +VITAMIN B-1100 MG PO
[2017-04-10 17:18] VITALS: BP 149/74
[2017-04-10] MEDS ORDERED: METOPROLOL TART25 M1 PO (17:21)
[2017-04-10 17:29] LABS: ABSOLUTE BASOPHIL COUNT 0.1 /CUMM (0.0-0.2); ABSOLUTE EOSINOPHIL COUNT 0 /CUMM (0.0-0.7); ABSOLUTE GRANULOCYTE CT 5.8 /CUMM (1.4-6.5); ABSOLUTE LYMPH COUNT 2.2 /CUMM (1.2-3.4); ABSOLUTE MONOCYTE COUNT 0.7 /CUMM (0.10-0.60); BASOPHIL % 0.6 % (0.0-2.0); EOSINOPHIL % 0.3 % (0-5); HEMATOCRIT 44.6 % (42-52); MEAN CORPUSCULAR HGB 32.3 PG (27.0-31.0); MEAN CORPUSCULAR HGB CONC 35.2 G/DL (33.0-37.0); MEAN CORPUSCULAR VOLUME 91.8 FL (80.0-94.0); MEAN PLATELET VOLUME 6.9 FL (7.4-10.4); PLATELET COUNT 220 /CUMM (130-400); RBC DISTRIBUTION WIDTH 14.8 % (11.5-14.5); RED BLOOD CELL CT 4.86 /CUMM (4.70-6.10); WHITE BLOOD CELL COUNT 8.8 /CUMM (4.8-10.8)
--- NOTE | 2017-04-10 20:31 | ED GENERAL ADULT ---
History of Present Illness General Chief Complaint: ETOH/Drug Related Complaint Stated Complaint: PT IS HERE SEEKING DETOX FROM ALOCHOL Source: patient, family, old records Exam Limitations: no limitations Vital Signs & Intake/Output Vital Signs & Intake/Output Vital Signs Date Time Temp Pulse Resp B/P B/P Pulse O2 O2 Flow FiO2 Mean Ox Delivery Rate 04/11 0017 97.5 92 18 172/84 04/11 0017 97.5 92 18 172/84 98 Room Air 04/10 2255 98.7 72 18 140/74 99 Room Air 04/10 2201 98.9 70 18 140/76 04/10 2201 98.9 70 18 140/76 98 Room Air 04/10 2039 99.3 73 16 149/74 04/10 1718 99.3 73 16 149/74 04/10 1715 99.7 73 16 149/74 98 Room Air ED Intake and Output 04/11 0000 04/10 1200 Intake Total Output Total Balance Patient 200 lb Weight Weight Reported by Patient Measurement Method Allergies Coded Allergies: No Known Allergies (10/11/16) Reconcile Medications Amlodipine Besylate 10 MG TABLET 1 TAB PO DAILY BP (Reported) Metoprolol Tartrate 25 MG TABLET 0.5 TAB PO DAILY HTN (Reported) Pioglitazone HCl (Actos) 30 MG TABLET (Unknown Dose) PO DM (Reported) Triage Note: 66M REPORTS "HOLIDAY DRINKING" APPROX 6-7 NIPS PER DAY AND SOME WINE OF VARIABLE AMOUNTS. C/O GI DISTRESS AND POOR APPETITE, LAST DRINK 8 HOURS AGO. DENIES AH/VH AND DENIES SI/HI. ENCOURAGED DETOX BY , AGREEABLE TO BE HERE AT THIS TIME. SLIGHTLY TREMULOUS IN TRIAGE. -N/V/D. -HEADACHE. CIWA 4 IN TRIAGE. Triage Nurses Notes Reviewed? yes HPI: Patient presents requesting detox from alcohol. Patient required an ICU admission in October for a call dependency and acute withdrawal. Patient states that shortly after discharge he was doing okay and only having a glass wine occasionally with dinner however approximately 3 weeks ago the wine became vodka and he became daily. Patient denies any suicidal or homicidal ideations. Patient's last drink was prior to arrival. Patient denies any hallucinations. Past History Travel History Traveled to [place] past 21 day No Medical History Any Pertinent Medical History? see below for history Neurological: NONE EENT: NONE Cardiovascular: hypertension Respiratory: NONE Gastrointestinal: NONE Hepatic: NONE Renal: NONE Musculoskeletal: CHRONIC BACK PAIN Psychiatric: NONE Endocrine: NONE Blood Disorders: NONE Cancer(s): NONE ELECTRICAL INTEGRATOR/Reproductive: NONE History of MRSA: No History of VRE: No History of CDIFF: No Surgical History Surgical History: non-contributory Psychosocial History Who do you live with Family What is your primary language Kyrgyz Tobacco Use: Never used ETOH Use: alcoholic Illicit Drug Use: denies illicit drug use Family History Hx Contributory? No Review of Systems Review of Systems Constitutional: Reports: no symptoms. EENTM: Reports: no symptoms. Respiratory: Reports: no symptoms. Cardiovascular: Reports: no symptoms. GI: Reports: no symptoms. Genitourinary: Reports: no symptoms. Musculoskeletal: Reports: no symptoms. Skin: Reports: no symptoms. Neurological/Psychological: Reports: no symptoms. Hematologic/Endocrine: Reports: no symptoms. Immunologic/Allergic: Reports: no symptoms. All Other Systems: Reviewed and Negative Physical Exam Physical Exam General Appearance: well developed/nourished, alert, awake, intoxicated Head: atraumatic, normal appearance Eyes: Bilateral: PERRL, EOMI, other (SLUGGISH). Ears, Nose, Throat: normal pharynx, normal ENT inspection, hearing grossly normal Neck: normal inspection, supple, full range of motion Respiratory: normal breath sounds, chest non-tender, no respiratory distress, lungs clear Cardiovascular: regular rate/rhythm, normal peripheral pulses Gastrointestinal: normal bowel sounds, soft, non-tender, no organomegaly Back: normal inspection, normal range of motion Extremities: normal inspection, normal capillary refill, normal range of motion, no edema Neurologic/Psych: no motor/sensory deficits, awake, alert, oriented x 3, normal mood/affect Skin: intact, normal color, warm/dry Lymphatic: no anterior cervical anu Core Measures ACS in differential dx? No CVA/TIA Diagnosis: No Sepsis Present: No Sepsis Focused Exam Completed? No Progress Differential Diagnoses I considered the following diagnoses in my evaluation of the patient: [ALCOHOL DEPENDENCY IN ACUTE WITHDRAWAL] Plan of Care: Orders Procedure Date/time Status Regular Diet 04/11 B Active ED Holding Orders 04/11 40 Active Admit to inpatient 04/11 40 Active Vital Signs 04/11 40 Active Code Status 04/11 40 Active CIWA 04/10 2019 Active URINE DRUGS OF ABUSE 04/10 1717 Complete URINALYSIS 04/10 1717 Complete LIPASE 04/10 1717 Complete ETHANOL 04/10 1717 Complete COMPREHENSIVE METABOLIC PANEL 04/10 1717 Complete CBC WITHOUT DIFFERENTIAL 04/10 1717 Complete Current Medications Sig/Will Start time Last Medication Dose Stop Time Status Admin Amlodipine Besylate 10 MG DAILY 04/11 1000 UNVr (Norvasc) Metoprolol Tartrate 12.5 MG DAILY 04/11 1000 UNVr (Lopressor) Laboratory Tests 04/10/17 1804: Urine Opiates Screen < 100.00, Methadone Screen < 40, Barbiturate Screen < 60, Ur Phencyclidine Scrn < 6.00, Amphetamines Screen < 100, U Benzodiazepines Scrn < 85, Urine Cocaine Screen < 50, Urine Cannabis Screen < 5.00, Urine Color YEL, Urine Clarity CLEAR, Urine pH 6.5, Ur Specific [place] 1.020, Urine Protein 30 H, Urine Ketones 15 H, Urine Nitrite NEG, Urine Bilirubin NEG, Urine Urobilinogen 1.0, Ur Leukocyte Esterase NEG, Ur Microscopic SEDIMENT EXAMINED, Urine RBC 1-3, Urine WBC 1-3 H, Ur Epithelial Cells RARE, Urine Hemoglobin NEG, Urine Glucose NEG 04/10/17 1721: Anion Gap 17 H, Estimated GFR > 60, BUN/Creatinine Ratio 13.3, Glucose 123 H, Calcium 9.5, Total Bilirubin 0.8, AST 61 H, ALT 54, Alkaline Phosphatase 82, Total Protein 7.8, Albumin 4.7, Globulin 3.1, Albumin/Globulin Ratio 1.5, Lipase 183, CBC w Diff NO MAN DIFF REQ, RBC 4.86, MCV 91.8, MCH 32.3 H, RDW 14.8 H, MPV 6.9 L, Gran % 66.0, Lymphocytes % 25.6, Monocytes % 7.5, Eosinophils % 0.3, Basophils % 0.6, Absolute Granulocytes 5.8, Absolute Lymphocytes 2.2, Absolute Monocytes 0.7 H, Absolute Eosinophils 0, Absolute Basophils 0.1, PUBS MCHC 35.2 , Serum Alcohol 225.0 Initial ED EKG: none Departure Departure Disposition: STILL A PATIENT Condition: Stable Clinical Impression Primary Impression: Alcohol dependency Referrals: Annalisa TERRAZAS,Yu Luo (PCP/Family) Departure Forms: Customer Survey General Discharge Information Admission Note Spoke With: Terrance Guzman MD Documentation of Exam: Documentation of any treatments & extenuating circumstances including Concerns Regarding Discharge (functional status, medication knowledge or non-compliance, living conditions, etc.) that warrant an admission rather than observation: [ ATIVAN PER GIA, SOCIAL WORK CONSULT FOR ALCOHOL REHAB AFTER DISCHARGE.] Alcohol Withdrawl Admission ED Alcohol Detox Admission d/t: DTs/Seizure w/i last year Critical Care Note Critical Care Note Critical Care Time: non-applicable
[2017-04-10 22:01] VITALS: BP 140/76
[2017-04-11] VITALS (8 sets, daily range): BP systolic 118–190; BP diastolic 78–90
[2017-04-11] MEDS ORDERED: ACTOS30 M1 PO (00:33)
--- NOTE | 2017-04-11 01:19 | History & Physical ---
Nayely Scottstewart 04/11/17 0119: General Information and HPI MD Statement: I have seen and personally examined FLO WOODWARD and documented this H&P. The patient is a 66 year old M who presented with a patient stated chief complaint of alcohol detox Source of Information: patient, old records Exam Limitations: no limitations History of Present Illness: Mr. Gunderson is a 66-year-old gentleman who is known to be in his usual state of health until a few hours ago. He is a past medical history of alcohol abuse-30 years, hospital admission to [facility] requiring critical unit care, alcohol related seizures (date unclear), paroxysmal SVTs while he was admitted in ICU. He came to [facility] with a request for alcohol detox. As per the patient, he was sober for approximately 2 months after he was discharged from [facility], which is September-December. He started occasional alcohol use, which became heavy in the last 1 month. He reports it as heavy holiday drinking, and last drink was on the day of admission to [facility]. In the last 1 month , he has been drinking 2-3 nips of hard liquor per day. Reports occasional tremulousness, but did not have any ataxia, or falls. No chest pain, palpitations, shortness of breath. Unclear if the patient is fully functional, and has returned to work after the patient was discharged. Allergies/Medications Allergies: Coded Allergies: No Known Allergies (10/11/16) Home Med list Amlodipine Besylate 10 MG TABLET 1 TAB PO DAILY BP (Reported) Metoprolol Tartrate 25 MG TABLET 0.5 TAB PO DAILY HTN (Reported) Pioglitazone HCl (Actos) 30 MG TABLET (Unknown Dose) PO DM (Reported) Past History Travel History Traveled to [place] past 21 day No Medical History Neurological: NONE EENT: NONE Cardiovascular: hypertension Respiratory: NONE Gastrointestinal: NONE Hepatic: NONE Renal: NONE Musculoskeletal: CHRONIC BACK PAIN Psychiatric: NONE Endocrine: NONE Blood Disorders: NONE Cancer(s): NONE WEATHER CLERK/Reproductive: NONE History of MRSA: No History of VRE: No History of CDIFF: No Surgical History Surgical History: non-contributory Past Family/Social History Psychosocial History ETOH Use: alcoholic Illicit Drug Use: denies illicit drug use Review of Systems Review of Systems Constitutional: Reports: see HPI. Exam & Diagnostic Data Last 24 Hrs of Vital Signs/I&O Vital Signs Date Time Temp Pulse Resp B/P B/P Pulse O2 O2 Flow FiO2 Mean Ox Delivery Rate 04/11 0548 98.0 90 20 184/90 95 Room Air 04/11 0538 90 184/90 04/11 0343 97 Room Air 04/11 0343 98.0 79 20 190/80 97 Room Air 04/11 0230 97.6 87 18 165/87 97 Room Air 04/11 0228 97.6 87 18 165/87 04/11 0017 97.5 92 18 172/84 04/11 0017 97.5 92 18 172/84 98 Room Air 04/10 2255 98.7 72 18 140/74 99 Room Air 04/10 2201 98.9 70 18 140/76 04/10 2201 98.9 70 18 140/76 98 Room Air 04/10 2039 99.3 73 16 149/74 04/10 1718 99.3 73 16 149/74 04/10 1715 99.7 73 16 149/74 98 Room Air Intake & Output 04/11 0800 04/11 0000 04/10 1600 Intake Total Output Total Balance Patient 200 lb 200 lb Weight Weight Reported by Patient Measurement Method Physical Exam General Appearance Alert, Oriented X3, Cooperative, No Acute Distress Skin No Rashes, No Breakdown, No Significant Lesion, NO SPIDER ANGIOMATA Skin Temp/Moisture Exam: Warm/Dry Sepsis Skin Exam (color): Normal for Ethnicity HEENT Atraumatic, PERRLA, EOMI Neck Supple, No thryomegaly Lymphatic Cervical nl Cardiovascular Regular Rate, Normal S1, Normal S2 Lungs Normal Air Movement Abdomen Normal Bowel Sounds, Soft, No Tenderness Neurological Normal Speech, Strength at 5/5 X4 Ext, Normal Tone, Sensation Intact, Cranial Nerves 3-12 NL, Reflexes 2+, MILD MEMORY DEFICIT-SHORT TERM MEMORY Extremities No Clubbing, No Cyanosis, No Edema Vascular Pulses Symmetrical Assessment/Plan Assessment: Mr. Gunderson is a 66-year-old gentleman with a past medical history of alcohol abuse-30 years, hospital admission to [facility] requiring critical unit care, alcohol related seizures (date unclear), paroxysmal SVTs while he was admitted in ICU and is being admitted to general medicine floor for alcohol detox. At the time of admission-vitals temperature 98.7, pulse rate 73, respirations 16 , blood pressure 149/74, pulse ox 98% on room air. Pertinent lab findings: WBC 8.8, hemoglobin 15.7, platelets 220 Electrolytes sodium 144, potassium 3.8, anion gap 17 (likely alcohol), magnesium 2.0 Renal function BUN 12, serum creatinine 0.9, Liver chemistries-AST 61, ALT 54, alkaline phosphatase 82, total bilirubin 0.8. Albumin 4.7, INR not checked. Urine tox-negative for opiates, benzodiazepines. Serum alcohol 225. EKG-did not reveal any SVTs. Normal sinus rhythm, no ST-T wave changes. He is being admitted for alcohol detox, and he required Ativan drip in the past. He would need aggressive lorazepam use, for alcohol detox. The patient requires more CIWA, than anticipated would keep a low threshold for ICU transfer. Plan: #1 alcohol detox-the patient has been started on lorazepam as per CIWA protocol. Also scheduled dose of Ativan 2 mg every 6 hourly. As per the pharmacy, they do not have any intravenous banana bag, and intravenous thiamine. Changed the medications to by mouth at this time. Recheck LFTs in the morning. #2 hypertension-clonidine as required. Continue home dose of amlodipine and metoprolol. #3 history of SVTs- the patient has any tachycardia, please obtain EKG; transfer the patient to telemetry for further monitoring. #4 history of diabetes-check HbA1c. Accu-Cheks. Housekeeping: #1 DVT prophylaxis-subcutaneous heparin. #2 pain pathway-ordered #3 CODE STATUS-full code. As Ranked By This Provider Problem List: 1. Paroxysmal SVT (supraventricular tachycardia) 2. Alcohol intoxication 3. Acute alcoholic hepatitis Core Measures/Misc (12/31) Acute Coronary Syndrome ACS Diagnosis: No Congestive Heart Failure Congestive Heart Failure Diagnosis No Cerebrovascular Accident CVA/TIA Diagnosis: No VTE (View Protocol) VTE Risk Factors No risk factors No Mechanical VTE Prophylaxis d/t N/A MechProphylax Ordered No VTE Pharm Prophylaxis d/t NA PharmProphylax ordered Sepsis (View protocol) Sepsis Present: Terrance Llamas 04/11/17 0827: Attending MD Review Statement Attending Statement Attending MD Statement: examined this patient, discuss w/resident/PA/GLASS DRILLER, agreed w/resident/PA/GLASS DRILLER, reviewed EMR data (avail), reviewed images, amended to note Attending Assessment/Plan: CC: Alcohol detox PMH: Alcoholism, hypertension, history of SVT Patient comes to ER for all called detox, since his previous detox in this hospital patient remained sober for 2-3 months and relapsed around December. Patient was admitted on the ICU and previous hospitalization, does not have any seizures history related to alcohol. Vitals, physical examination unremarkable except mild hypertension and mild tremors Labs: CBC, BMP, LFT unremarkable, serum all called to 25 + Alcohol detox + History of hypertension - Admit to general medicine - Ativan 2 mg every 6 hours scheduled, - when necessary according to CIWA score, - nutritional supplementation with thiamine and folic acid - Check the magnesium and phosphorus, replace if depleted. - Patient was on pioglitazone in the past and currently does not confirm this medication, checking HbA1c. - Resume his home antihypertensive - Patient has history of SVT in the past, watchful. - Repeat ECG persistently tachycardic - Repeat LFTs in the a.m. - DVT prophylaxis - Yellow tissue to ICU transfer if persistently high doses of Ativan required on CIWA protocol
--- NOTE | 2017-04-11 08:03 | Discharge Summary ---
Hospital Course Allergies: Coded Allergies: No Known Allergies (10/11/16)
--- NOTE | 2017-04-11 08:29 | Admission Certification ---
Admission Certification Certification Statement - As attending physician, I certify that at the time of - admission, based on clinical presentation, severity of - symptoms, need for further diagnostic testing and - therapeutic interventions, and risk of adverse outcomes - without in-hospital treatment, in my clinical assessment, - this patient requires an acute hospital stay for a minimum - of two nights or longer. I have also considered psychsocial - factors such as support system, advanced age, financial - issues, cognitive issues, and failed out-patient treatments, - past re-admission history, safety of patient, and lack of - compliance as applicable. Specific rationale supporting this admission is: Alcohol detox
[2017-04-11 08:50] LABS: ABSOLUTE BASOPHIL COUNT 0 /CUMM (0.0-0.2); ABSOLUTE EOSINOPHIL COUNT 0 /CUMM (0.0-0.7); ABSOLUTE GRANULOCYTE CT 4.9 /CUMM (1.4-6.5); ABSOLUTE LYMPH COUNT 1.4 /CUMM (1.2-3.4); ABSOLUTE MONOCYTE COUNT 0.8 /CUMM (0.10-0.60); BASOPHIL % 0.4 % (0.0-2.0); EOSINOPHIL % 0.5 % (0-5); GRANULOCYTE % 68.9 % (42.2-75.2); HEMATOCRIT 41.6 % (42-52); MEAN CORPUSCULAR HGB 32.6 PG (27.0-31.0); MEAN CORPUSCULAR VOLUME 93.3 FL (80.0-94.0); MEAN PLATELET VOLUME 7.7 FL (7.4-10.4); PLATELET COUNT 169 /CUMM (130-400); RBC DISTRIBUTION WIDTH 14.4 % (11.5-14.5); RED BLOOD CELL CT 4.46 /CUMM (4.70-6.10); WHITE BLOOD CELL COUNT 7.1 /CUMM (4.8-10.8)
--- NOTE | 2017-04-11 11:25 | PN- Att Addend ---
Attending Addendum Attending Brief Note Patient seen and examined. He is a 66-year-old male with a past medical history of alcohol abuse, hypertension and paroxysmal SVT in the past. He is here with acute alcohol withdrawal. His last admission in October was fairly complicated with a long benzo taper. Will have him continue on Ativan 2mg every 6. We'll continue the Norvasc and metoprolol twice a day for uncontrolled hypertension. Will have social work see him. Last time he went to [facility] when his withdrawal is slightly better will have PT evaluate him.
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
[2017-04-12] VITALS (14 sets, daily range): BP systolic 106–175; BP diastolic 68–109
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
[2017-04-12 06:00] LABS: ABSOLUTE BASOPHIL COUNT 0 /CUMM (0.0-0.2); ABSOLUTE EOSINOPHIL COUNT 0.1 /CUMM (0.0-0.7); ABSOLUTE GRANULOCYTE CT 5.5 /CUMM (1.4-6.5); ABSOLUTE LYMPH COUNT 1.8 /CUMM (1.2-3.4); ABSOLUTE MONOCYTE COUNT 0.9 /CUMM (0.10-0.60); BASOPHIL % 0.3 % (0.0-2.0); EOSINOPHIL % 1.1 % (0-5); GRANULOCYTE % 66.6 % (42.2-75.2); HEMATOCRIT 43.3 % (42-52); MEAN CORPUSCULAR HGB 32.6 PG (27.0-31.0); MEAN CORPUSCULAR HGB CONC 34.9 G/DL (33.0-37.0); MEAN CORPUSCULAR VOLUME 93.3 FL (80.0-94.0); MEAN PLATELET VOLUME 7.8 FL (7.4-10.4); PLATELET COUNT 164 /CUMM (130-400); RBC DISTRIBUTION WIDTH 14.1 % (11.5-14.5); RED BLOOD CELL CT 4.64 /CUMM (4.70-6.10); WHITE BLOOD CELL COUNT 8.2 /CUMM (4.8-10.8)
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
[2017-04-13] VITALS (12 sets, daily range): BP systolic 91–147; BP diastolic 59–82
[2017-04-13 04:16] LABS: ABSOLUTE BASOPHIL COUNT 0 /CUMM (0.0-0.2); ABSOLUTE EOSINOPHIL COUNT 0.2 /CUMM (0.0-0.7); ABSOLUTE GRANULOCYTE CT 4.6 /CUMM (1.4-6.5); ABSOLUTE LYMPH COUNT 1.3 /CUMM (1.2-3.4); ABSOLUTE MONOCYTE COUNT 0.6 /CUMM (0.10-0.60); BASOPHIL % 0.4 % (0.0-2.0); EOSINOPHIL % 3.2 % (0-5); GRANULOCYTE % 68.1 % (42.2-75.2); HEMATOCRIT 40.1 % (42-52); MEAN CORPUSCULAR HGB 32.8 PG (27.0-31.0); MEAN CORPUSCULAR VOLUME 93.7 FL (80.0-94.0); MEAN PLATELET VOLUME 7.8 FL (7.4-10.4); PLATELET COUNT 141 /CUMM (130-400); RED BLOOD CELL CT 4.28 /CUMM (4.70-6.10); WHITE BLOOD CELL COUNT 6.8 /CUMM (4.8-10.8)
--- NOTE | 2017-04-13 07:50 | PN- Resident CRCU ---
Subjective HPI/CRCU Issues: Etoh detox 24 Hour Events: Patient had no acute events overnight. He is lethargic but responds to sternal rub. He is on 19 mcg Ativan Objective Vital Signs & I&O Last 8 Hrs of Vitals and I&O: Tmax:98.1 BP:91-140/59-82 HR:58-84 O2 sat: 93-97% on room air I:906 O:400 Exam General Appearance: sedated Head: atraumatic, normal appearance Ears, Nose, Throat: normal pharynx, normal ENT inspection, hearing grossly normal Neck: normal inspection, supple, full range of motion Respiratory: normal breath sounds, no respiratory distress, lungs clear Cardiovascular: regular rate/rhythm Gastrointestinal: normal bowel sounds, soft, non-tender, no organomegaly Extremities: normal inspection, no edema Current Medications: Current Medications Sig/Will Start time Last Medication Dose Route Stop Time Status Admin Acetaminophen 650 MG Q8P PRN 04/11 0400 AC PO Amlodipine Besylate 10 MG DAILY 04/11 1000 AC 04/11 PO 0820 Cyanocobalamin/ 1 BAG DAILY 04/12 1400 AC 04/13 Thiamine/Pyridoxine IV 04/13 2355 1205 Dextrose/Water 1,000 ML Dextrose/Sodium 1,000 ML Q20H 04/13 1200 AC Chloride IV Dextrose/Water 1,000 ML Q20H 04/13 0815 DC 04/13 IV 04/14 0414 0819 Folic Acid 1 MG DAILY 04/11 1000 AC 04/11 PO 0819 Furosemide 20 MG ONCE ONE 04/13 1100 DC 04/13 IV 04/13 1101 1207 Heparin Sodium 5,000 UNIT Q8 04/11 0600 AC 04/13 (Porcine) SC 0703 Lorazepam 100 MG Q12H 04/13 0900 AC 04/13 Sodium Chloride 1,000 ML IV 1109 Lorazepam 100 MG Q10H 04/12 2200 DC 04/12 Sodium Chloride 1,000 ML IV 04/13 0859 2320 Lorazepam 100 MG Q14H 04/12 1000 DC 04/12 Sodium Chloride 1,000 ML IV 04/12 2200 1223 Metoprolol Tartrate 12.5 MG BID 04/11 2200 AC 04/12 PO 2300 Multivitamins 1 TAB DAILY 04/11 1000 AC 04/11 PO 1115 Potassium Chloride 10 MEQ Q1H 04/13 1015 DC 04/13 IV 04/13 1116 1229 Thiamine HCl 100 MG DAILY 04/11 1000 AC 04/11 PO 1115 Impression/Plan Impression/Problem List Impression: Mr. Gunderson is a 66-year-old gentleman with a past medical history of alcohol abuse, alcohol related seizures, paroxysmal SVTs, initially admitted to general medicine floor for alcohol detox. He was transferred to ICU for further management with an Ativan infusion. Respiratory: No active issues ID: No active issues CVS: History of Hypertension, SVTs Patient's BP was 220/100, he was given 5 mg Metoprolol and his BP decreased to 175/109. His persistent BP elevation is most likely 2/2 alcohol withdrawal and he is currently on Ativan * Continue home dose of amlodipine and metoprolol * Continue Ativan * Monitor vitals * Consider IV hydrallazine and or low dose metoprolol IV for bp management if SBP persistently > 160 * Give IV Lasix 20 mg Hematology: No active issues Metabolic: History of diabetes * Accuchecks and Novolog SS Alimentary: Alcohol detox We will try to wean patient off ativan infusion and give boluses PRN. Once he is more awake we will start loading with po librium 75 mg q8 * Titrate lorazepam as per [facility] protocol * Continue behavioral restraints for agitation * Continue Folic acid and Thiamine Nephrology: No active issue DVT prophylaxis-subcutaneous heparin. Diet: NPO CODE STATUS-full code. Problem List: 1. Alcohol withdrawal Pain Ratin Tomorrow's Labs & Rationales: CBC, Bundle Plan DVT/Prophylaxis: mechanical
--- NOTE | 2017-04-13 09:03 | PN- CRCU ---
Subjective HPI/Critical Care Issues: see other note Objective Vital Signs & I&O Last 24 Hrs of Vitals and I&O: Vital Signs Date Time Temp Pulse Resp B/P B/P Pulse O2 O2 Flow FiO2 Mean Ox Delivery Rate 04/13 0800 97.8 70 18 118/72 96 Room Air 04/13 0600 58 12 91/59 04/13 0400 97.6 70 10 126/76 04/13 0400 97 Room Air 04/13 0200 72 24 134/82 04/13 0000 98.1 74 19 116/69 04/13 0000 98.1 74 19 116/69 95 Room Air 04/13 0000 95 Room Air 04/12 2300 75 140/91 04/12 2200 60 17 106/71 04/12 2000 97.9 81 20 170/91 04/12 2000 97 Room Air 04/12 1800 66 16 110/69 04/12 1600 98.6 71 20 140/82 04/12 1600 98.6 71 20 140/82 96 Room Air 04/12 1600 96 Room Air 04/12 1400 84 24 154/77 04/12 1330 86 20 04/12 1230 97.4 89 24 132/86 04/12 1200 81 24 107/72 04/12 1200 97 Room Air 04/12 1000 78 16 119/69 Intake & Output 04/13 1600 04/13 0800 04/13 0000 Intake Total 906 1781 Output Total 400 300 Balance 506 1481 Intake, IV 856 1781 Intake, Oral 50 0 Number 0 0 Bowel Movements Output, Urine 400 300 Impression/Plan Impression/Plan Impression/Plan: see other note Phosphorus (2.5 - 4.5 mg/dL) 3.2 Magnesium (1.6 - 2.3 mg/dL) 1.9 Total Bilirubin (0.2 - 1.3 mg/dL) 1.4 H AST (17 - 59 U/L) 66 H ALT (21 - 72 U/L) 54 Albumin (3.5 - 5.0 g/dL) 3.6 Hematology CBC w Diff NO MAN DIFF REQ NO MAN DIFF REQ WBC (4.8 - 10.8 /CUMM) 6.8 8.2 RBC (4.70 - 6.10 /CUMM) 4.28 L 4.64 L Hgb (14.0 - 18.0 G/DL) 14.1 15.1 Hct (42 - 52 %) 40.1 L 43.3 MCV (80.0 - 94.0 FL) 93.7 93.3 MCH (27.0 - 31.0 PG) 32.8 H 32.6 H RDW (11.5 - 14.5 %) 14.0 14.1 Plt Count (130 - 400 /CUMM) 141 164 MPV (7.4 - 10.4 FL) 7.8 7.8 Gran % (42.2 - 75.2 %) 68.1 66.6 Lymphocytes % (20.5 - 51.1 %) 19.7 L 21.4 Monocytes % (1.7 - 9.3 %) 8.6 10.6 H Eosinophils % (0 - 5 %) 3.2 1.1 Basophils % (0.0 - 2.0 %) 0.4 0.3 Absolute Granulocytes (1.4 - 6.5 /CUMM) 4.6 5.5 Absolute Lymphocytes (1.2 - 3.4 /CUMM) 1.3 1.8 Absolute Monocytes (0.10 - 0.60 /CUMM) 0.6 0.9 H Absolute Eosinophils (0.0 - 0.7 /CUMM) 0.2 0.1 Absolute Basophils (0.0 - 0.2 /CUMM) 0 0 PUBS MCHC (33.0 - 37.0 G/DL) 35.0 34.9 Microbiology Date/Time Procedure - Status Source Growth 04/12 445 Surveillance Culture - RECD UPPER RESP Vital Signs & I&O Last 24 Hrs of Vitals and I&O: Vital Signs Date Time Temp Pulse Resp B/P B/P Pulse O2 O2 Flow FiO2 Mean Ox Delivery Rate 04/13 0800 97.8 70 18 118/72 96 Room Air 04/13 0600 58 12 91/59 04/13 0400 97.6 70 10 126/76 04/13 0400 97 Room Air 04/13 0200 72 24 134/82 04/13 0000 98.1 74 19 116/69 04/13 0000 98.1 74 19 116/69 95 Room Air 04/13 0000 95 Room Air 04/12 2300 75 140/91 04/12 2200 60 17 106/71 04/12 2000 97.9 81 20 170/91 04/12 2000 97 Room Air 04/12 1800 66 16 110/69 04/12 1600 98.6 71 20 140/82 04/12 1600 98.6 71 20 140/82 96 Room Air 04/12 1600 96 Room Air 04/12 1400 84 24 154/77 04/12 1330 86 20 04/12 1230 97.4 89 24 132/86 04/12 1200 81 24 107/72 04/12 1200 97 Room Air 04/12 1000 78 16 119/69 Intake & Output 04/13 1600 04/13 0800 04/13 0000 Intake Total 906 1781 Output Total 400 300 Balance 506 1481 Intake, IV 856 1781 Intake, Oral 50 0 Number 0 0 Bowel Movements Output, Urine 400 300
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
[2017-04-14] VITALS (12 sets, daily range): BP systolic 100–162; BP diastolic 57–95
[2017-04-14 05:00] LABS: ABSOLUTE BASOPHIL COUNT 0 /CUMM (0.0-0.2); ABSOLUTE EOSINOPHIL COUNT 0.2 /CUMM (0.0-0.7); ABSOLUTE GRANULOCYTE CT 6.7 /CUMM (1.4-6.5); ABSOLUTE LYMPH COUNT 1.2 /CUMM (1.2-3.4); ABSOLUTE MONOCYTE COUNT 0.7 /CUMM (0.10-0.60); BASOPHIL % 0.1 % (0.0-2.0); EOSINOPHIL % 1.9 % (0-5); GRANULOCYTE % 76.7 % (42.2-75.2); HEMATOCRIT 39.8 % (42-52); MEAN CORPUSCULAR HGB CONC 35.2 G/DL (33.0-37.0); MEAN CORPUSCULAR VOLUME 93.8 FL (80.0-94.0); MEAN PLATELET VOLUME 7.7 FL (7.4-10.4); PLATELET COUNT 137 /CUMM (130-400); RED BLOOD CELL CT 4.24 /CUMM (4.70-6.10); WHITE BLOOD CELL COUNT 8.8 /CUMM (4.8-10.8)
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
[2017-04-15] VITALS (12 sets, daily range): BP systolic 110–170; BP diastolic 60–90
[2017-04-15 05:00] LABS: ABSOLUTE BASOPHIL COUNT 0 /CUMM (0.0-0.2); ABSOLUTE EOSINOPHIL COUNT 0.2 /CUMM (0.0-0.7); ABSOLUTE GRANULOCYTE CT 5.4 /CUMM (1.4-6.5); ABSOLUTE LYMPH COUNT 1.5 /CUMM (1.2-3.4); ABSOLUTE MONOCYTE COUNT 0.6 /CUMM (0.10-0.60); BASOPHIL % 0.2 % (0.0-2.0); EOSINOPHIL % 2.4 % (0-5); GRANULOCYTE % 69.6 % (42.2-75.2); HEMATOCRIT 40.9 % (42-52); MEAN CORPUSCULAR HGB 32.6 PG (27.0-31.0); MEAN CORPUSCULAR HGB CONC 34.5 G/DL (33.0-37.0); MEAN CORPUSCULAR VOLUME 94.5 FL (80.0-94.0); PLATELET COUNT 133 /CUMM (130-400); RBC DISTRIBUTION WIDTH 14.5 % (11.5-14.5); RED BLOOD CELL CT 4.33 /CUMM (4.70-6.10); WHITE BLOOD CELL COUNT 7.7 /CUMM (4.8-10.8)
--- NOTE | 2017-04-15 08:33 | PN- Resident CRCU ---
Subjective HPI/CRCU Issues: Etoh detox 24 Hour Events: Patient had no acute events overnight. Currently being weaned off Ativan. He is lethargic but responds to sternal rub. Objective Vital Signs & I&O Last 8 Hrs of Vitals and I&O: Intake & Output 04/15 1600 Intake Total 1010 Output Total 1500 Balance -490 Intake, IV 890 Intake, Oral 120 Output, Urine 1500 Exam General Appearance: well developed/nourished, no apparent distress, lethargic Head: atraumatic, normal appearance Ears, Nose, Throat: normal pharynx, normal ENT inspection, hearing grossly normal Neck: normal inspection, supple, full range of motion Respiratory: normal breath sounds, chest non-tender, no respiratory distress, lungs clear Cardiovascular: regular rate/rhythm Gastrointestinal: normal bowel sounds, soft, non-tender Extremities: normal inspection, normal range of motion, no edema Current Medications: Current Medications Sig/Will Start time Last Medication Dose Route Stop Time Status Admin Acetaminophen 650 MG Q8P PRN 04/11 0400 AC PO Amlodipine Besylate 10 MG DAILY 04/11 1000 AC 04/11 PO 0820 Chlordiazepoxide HCl 100 MG Q8 04/15 1400 AC PO Chlordiazepoxide HCl 75 MG Q8 04/15 0618 DC 04/15 PO 0644 Folic Acid 1 MG DAILY 04/11 1000 AC 04/11 PO 0819 Furosemide 20 MG ONCE ONE 04/14 2000 DC 04/14 IV 04/14 Heparin Sodium 5,000 UNIT Q8 04/11 0600 AC 04/15 (Porcine) SC 0555 Lorazepam 100 MG Q20H 04/14 2000 AC 04/14 Sodium Chloride 1,000 ML IV 2247 Lorazepam 100 MG Q12H 04/13 0900 DC 04/14 Sodium Chloride 1,000 ML IV 04/14 195 0158 Metoprolol Tartrate 12.5 MG BID 04/11 2200 AC 04/13 PO 2203 Multivitamins 1 TAB DAILY 04/11 1000 AC 04/11 PO 1115 Potassium Chloride 40 MEQ ONCE ONE 04/15 08 DC PO 04/15 0831 Potassium Chloride 40 MEQ ONCE ONE 04/15 0630 DC 04/15 PO 04/15 0631 0644 Potassium Chloride 20 MEQ Q1H 04/14 2000 CAN IV 04/14 2101 Potassium Chloride 10 MEQ Q1H 04/14 2000 DC 04/14 IV 12/30 2101 2131 Potassium Chloride 10 MEQ Q1H 04/14 1315 DC 04/14 IV 04/14 1516 1713 Potassium Chloride 20 MEQ Q13H 04/14 1015 AC 04/15 Dextrose/Sodium 1,000 ML IV 0000 Chloride Thiamine HCl 100 MG DAILY 04/11 1000 AC 04/11 PO 1115 Impression/Plan Impression/Problem List Impression: Mr. Gunderson is a 66-year-old gentleman with a past medical history of alcohol abuse, alcohol related seizures, paroxysmal SVTs, initially admitted to general medicine floor for alcohol detox. He was transferred to ICU for further management with an Ativan infusion. Respiratory: No active issues ID: No active issues CVS: History of Hypertension, SVTs Patient's BP was 220/100, he was given 5 mg Metoprolol and his BP decreased to 175/109. His persistent BP elevation is most likely 2/2 alcohol withdrawal and he is currently on Ativan * Continue home dose of amlodipine and metoprolol * Continue to wean Ativan * Monitor vitals * Consider IV hydralazine and or low dose metoprolol IV for bp management if SBP persistently > 160 * Give IV Lasix 20 mg Hematology: No active issues Metabolic: History of diabetes * Accuchecks and Novolog SS Alimentary: Alcohol detox We will try to wean patient off ativan infusion and give boluses PRN. * Change librium 75 mg q8 to 100 mg * Titrate lorazepam as per [facility] protocol * Continue behavioral restraints for agitation * Continue Folic acid and Thiamine Nephrology: No active issue DVT prophylaxis-subcutaneous heparin. Diet: NPO CODE STATUS-full code. Problem List: 1. Alcohol abuse 2. Alcohol withdrawal Pain Ratin Tomorrow's Labs & Rationales: CBC, Bundle Plan DVT/Prophylaxis: mechanical
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
[2017-04-16] VITALS (9 sets, daily range): BP systolic 99–185; BP diastolic 60–84
[2017-04-16 04:58] LABS: ABSOLUTE BASOPHIL COUNT 0 /CUMM (0.0-0.2); ABSOLUTE EOSINOPHIL COUNT 0.2 /CUMM (0.0-0.7); ABSOLUTE GRANULOCYTE CT 5.1 /CUMM (1.4-6.5); ABSOLUTE LYMPH COUNT 1.7 /CUMM (1.2-3.4); ABSOLUTE MONOCYTE COUNT 0.9 /CUMM (0.10-0.60); BASOPHIL % 0.3 % (0.0-2.0); EOSINOPHIL % 3.1 % (0-5); GRANULOCYTE % 64.4 % (42.2-75.2); HEMATOCRIT 40.3 % (42-52); MEAN CORPUSCULAR HGB 33.2 PG (27.0-31.0); MEAN CORPUSCULAR HGB CONC 35.2 G/DL (33.0-37.0); MEAN CORPUSCULAR VOLUME 94.4 FL (80.0-94.0); MEAN PLATELET VOLUME 7.6 FL (7.4-10.4); PLATELET COUNT 144 /CUMM (130-400); RBC DISTRIBUTION WIDTH 14.2 % (11.5-14.5); RED BLOOD CELL CT 4.27 /CUMM (4.70-6.10); WHITE BLOOD CELL COUNT 7.9 /CUMM (4.8-10.8)
--- NOTE | 2017-04-16 08:40 | PN- Resident CRCU ---
Subjective HPI/CRCU Issues: Etoh detox 24 Hour Events: Patient had no acute events overnight. He is more awake and alert and has no complaints. Objective Vital Signs & I&O Last 8 Hrs of Vitals and I&O: Tmax:98.0 BP:99-144/60-76 HR:60-69 RR:20-22 I:1012 O:410 Exam General Appearance: alert, awake, comfortable, AOx3 Head: atraumatic, normal appearance Ears, Nose, Throat: normal pharynx, normal ENT inspection, hearing grossly normal Neck: normal inspection, supple, full range of motion Respiratory: normal breath sounds, no respiratory distress, lungs clear Cardiovascular: regular rate/rhythm Gastrointestinal: normal bowel sounds, soft, non-tender, no organomegaly Extremities: normal inspection, normal capillary refill, normal range of motion, no edema Current Medications: Current Medications Sig/Will Start time Last Medication Dose Route Stop Time Status Admin Acetaminophen 650 MG Q8P PRN 04/11 0400 AC PO Amlodipine Besylate 10 MG DAILY 04/11 1000 AC 04/16 PO 0946 Chlordiazepoxide HCl 100 MG Q8 04/15 1400 AC 04/16 PO 0623 Chlordiazepoxide HCl 75 MG Q8 04/15 0618 DC 04/15 PO 0644 Enoxaparin Sodium 40 MG DAILY 04/16 1000 AC SC Folic Acid 1 MG DAILY 04/11 1000 AC 04/16 PO 0946 Furosemide 20 MG ONCE ONE 04/15 1215 DC 04/15 IV 04/15 1216 1235 Heparin Sodium 5,000 UNIT Q8 04/11 0600 DC 04/16 (Porcine) SC 0627 Lorazepam 0 Q1P PRN 04/16 0815 AC 04/16 IV 0805 Lorazepam 2 MG Q6 04/16 0802 DC PO Lorazepam 50 MG Q17H 04/15 2230 AC 04/15 Sodium Chloride 500 ML IV 2213 Lorazepam 2 MG .STK-MED ONE 04/15 1226 DC IM 04/15 1227 Lorazepam 100 MG Q20H 04/14 2000 DC 04/14 Sodium Chloride 1,000 ML IV 04/15 2230 2247 Magnesium Sulfate 1 GM Q2H 04/16 0900 AC 04/16 Dextrose/Water 100 ML IV 04/16 1259 0946 Metoprolol Tartrate 12.5 MG BID 04/11 2200 AC 04/16 PO 0946 Multivitamins 1 TAB DAILY 04/11 1000 AC 04/16 PO 0946 Pantoprazole Sodium 40 MG DAILY 04/16 1000 AC 04/16 IV 0946 Potassium Chloride 10 MEQ Q1H 04/16 0930 AC IV 04/16 1031 Potassium Chloride 10 MEQ Q1H 04/15 1330 DC 04/15 IV 04/15 1431 1600 Potassium Chloride 40 MEQ ONCE ONE 04/15 1315 CAN PO 04/15 1316 Potassium Chloride 20 MEQ Q13H 04/14 1015 AC 04/16 Dextrose/Sodium 1,000 ML IV 0814 Chloride Thiamine HCl 100 MG DAILY 04/11 1000 AC 04/16 PO 0946 Impression/Plan Impression/Problem List Impression: Mr. Gunderson is a 66-year-old gentleman with a past medical history of alcohol abuse, alcohol related seizures, paroxysmal SVTs, initially admitted to general medicine floor for alcohol detox. He was transferred to ICU for further management with an Ativan infusion. Respiratory: No active issues ID: No active issues CVS: History of Hypertension, SVTs Patient's BP was 220/100, he was given 5 mg Metoprolol and his BP decreased to 175/109. His persistent BP elevation is most likely 2/2 alcohol withdrawal and he is currently on Ativan * Continue home dose of amlodipine and metoprolol * Continue to wean Ativan * Monitor vitals * Consider IV hydralazine and or low dose metoprolol IV for bp management if SBP persistently > 160 * Give IV Lasix 20 mg Hematology: No active issues Metabolic: History of diabetes * Accuchecks and Novolog SS Alimentary: Alcohol detox * Continue librium 100 mg * Give Ativan boluses PRN * Continue behavioral restraints for agitation * Continue Folic acid and Thiamine Nephrology: No active issue DVT prophylaxis-subcutaneous heparin Diet: Clear liquids, advance as tolerated CODE STATUS-full code. Problem List: 1. Alcohol abuse 2. Alcohol withdrawal Pain Ratin Tomorrow's Labs & Rationales: CBC, Bundle Plan DVT/Prophylaxis: mechanical
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
[2017-04-17] VITALS (10 sets, daily range): BP systolic 112–152; BP diastolic 56–84
[2017-04-17 05:28] LABS: ABSOLUTE BASOPHIL COUNT 0 /CUMM (0.0-0.2); ABSOLUTE EOSINOPHIL COUNT 0.2 /CUMM (0.0-0.7); ABSOLUTE GRANULOCYTE CT 5.7 /CUMM (1.4-6.5); ABSOLUTE LYMPH COUNT 1.2 /CUMM (1.2-3.4); ABSOLUTE MONOCYTE COUNT 0.9 /CUMM (0.10-0.60); BASOPHIL % 0.3 % (0.0-2.0); EOSINOPHIL % 2.4 % (0-5); GRANULOCYTE % 71.6 % (42.2-75.2); HEMATOCRIT 40.7 % (42-52); MEAN CORPUSCULAR HGB 32.7 PG (27.0-31.0); MEAN CORPUSCULAR HGB CONC 34.8 G/DL (33.0-37.0); MEAN PLATELET VOLUME 8.1 FL (7.4-10.4); PLATELET COUNT 145 /CUMM (130-400); RBC DISTRIBUTION WIDTH 14.1 % (11.5-14.5); RED BLOOD CELL CT 4.33 /CUMM (4.70-6.10)
--- NOTE | 2017-04-17 08:07 | PN- Resident CRCU ---
Subjective HPI/CRCU Issues: Etoh detox 24 Hour Events: Overnight patient had some vomiting and diarrhea. This a.m. he is disoriented. He believes he is in a court room where he will be judged Objective Vital Signs & I&O Last 8 Hrs of Vitals and I&O: Tmax:99.0 BP:123-152/60-84 HR:66-80 RR:16-18 I:0 O:300 Exam General Appearance: well developed/nourished, alert, awake, AAOx1 to person Head: atraumatic, normal appearance Ears, Nose, Throat: normal pharynx, normal ENT inspection, hearing grossly normal Neck: normal inspection, supple, full range of motion Respiratory: normal breath sounds, chest non-tender, lungs clear Cardiovascular: regular rate/rhythm Gastrointestinal: normal bowel sounds, soft, non-tender Extremities: normal inspection, normal range of motion, no edema Current Medications: Current Medications Sig/Will Start time Last Medication Dose Route Stop Time Status Admin Acetaminophen 650 MG Q8P PRN 04/11 0400 AC PO Amlodipine Besylate 10 MG DAILY 04/11 1000 AC 04/17 PO 0910 Chlordiazepoxide HCl 75 MG Q8 04/16 1400 AC 04/17 PO 0204 Chlorhexidine 10 ML Q6 04/16 1400 AC 04/17 Gluconate PO 1146 Enoxaparin Sodium 40 MG DAILY 04/16 1000 AC 04/17 SC 0911 Folic Acid 1 MG DAILY 04/11 1000 AC 04/17 PO 0910 Lorazepam 0 Q1P PRN 04/16 1215 AC 04/17 IV 1145 Magnesium Sulfate 1 GM Q2H 04/17 0815 AC 04/17 Dextrose/Water 100 ML IV 04/17 1214 1010 Magnesium Sulfate 1 GM Q2H 04/16 0900 DC 04/16 Dextrose/Water 100 ML IV 04/16 1259 1056 Metoprolol Tartrate 12.5 MG BID 04/11 2200 AC 04/17 PO 0910 Multivitamins 1 TAB DAILY 04/11 1000 AC 04/17 PO 0910 Omeprazole 40 MG DAILY AC 04/17 0700 AC 04/17 PO 0648 Ondansetron HCl 4 MG ONCE PRN 04/16 1945 DC 04/16 IV 04/16 2300 1946 Pantoprazole Sodium 40 MG DAILY 04/16 1000 DC 04/16 IV 0946 Potassium Chloride 40 MEQ ONCE ONE 04/17 1030 DC 04/17 PO 04/17 1031 1037 Potassium Chloride 10 MEQ Q1H 04/17 0815 CAN IV 04/17 1200 Potassium Chloride 40 MEQ ONCE ONE 04/16 1800 CAN PO 04/16 1801 Potassium Chloride 40 MEQ ONCE ONE 04/16 1400 DC 04/16 PO 04/16 1401 1424 Potassium Chloride 20 MEQ Q13H 04/14 1015 DC 04/16 Dextrose/Sodium 1,000 ML IV 0814 Chloride Thiamine HCl 100 MG DAILY 04/11 1000 AC 04/17 PO 0910 Trimethobenzamide HCl 200 MG ONCE ONE 04/16 2045 DC 04/16 IM 04/16 Impression/Plan Impression/Problem List Impression: Mr. Gunderson is a 66-year-old gentleman with a past medical history of alcohol abuse, alcohol related seizures, paroxysmal SVTs, initially admitted to general medicine floor for alcohol detox. He was transferred to ICU for further management with an Ativan infusion. He is off the Ativan drip and stable for gen med floor Respiratory: No active issues ID: No active issues CVS: History of Hypertension, SVTs Patient is currently off Ativan drip * Continue home dose of amlodipine and metoprolol * Monitor vitals * Consider IV hydralazine and or low dose metoprolol IV for bp management if SBP persistently > 160 * Give IV Lasix 20 mg Hematology: No active issues Metabolic: History of diabetes * Accuchecks and Novolog SS Hypokalemia, Hypomagnesemia * Monitor and replete PRN Alimentary: Alcohol detox * Continue librium 75 mg q8 today and taper * Ativan as per [facility] protocol * Continue Folic acid and Thiamine Nephrology: No active issue DVT prophylaxis-subcutaneous heparin Diet: Clear liquids, advance as tolerated CODE STATUS-full code. Problem List: 1. Alcohol abuse 2. Alcohol withdrawal Pain Ratin Tomorrow's Labs & Rationales: CBC, Bundle Plan DVT/Prophylaxis: mechanical
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
[2017-04-18] VITALS (10 sets, daily range): BP systolic 108–120; BP diastolic 60–82
--- NOTE | 2017-04-18 10:06 | Transfer of Care Summary ---
Hospital Course Course Hospital Course: Reason for ICU admission: For further monitoring and management of Etoh detox with an Ativan infusion. HPI: Mr. Gunderson is a 66-year-old gentleman with a past medical history of alcohol abuse-30 years, hospital admission to [facility] requiring critical unit care, alcohol related seizures (date unclear), paroxysmal SVTs while he was previously admitted in ICU and is being admitted to general medicine floor for alcohol detox. Interval events: During his ICU stay the patient was very agitated and his Ativan drip was titrated as per [facility] protocol. He PO meds were changed to IV for aspiration precautions. He required behavioral restraints, an IV dose of Zyprexa and a 1:1 sitter for monitoring. Hs electrolytes were monitored and repleted as needed. His BP remained stable SBP<150s and he was continued on his home antihypertensive meds. His Ativan drip was subsequently weaned off and Librium was started. He became more alert and his IV meds were changed to PO. He had an epidose of vomiting and diarrhea that spontaneously resolved with no further medical intervention. He began to have intermittent visual hallucinations and we began to slowly taper his Librium. Mechanical ventilations: no NIPPV: No Antibiotics: None Cathethers/Lines: None Nutrition: Banana bag given. Full liquids, advance as tolerated DVT prophylaxis-subcutaneous heparin CODE STATUS-full Assessment/Plan: Mr. Gunderson is a 66-year-old gentleman with a past medical history of alcohol abuse, alcohol related seizures, paroxysmal SVTs, initially admitted to general medicine floor for alcohol detox. He was transferred to ICU for further management with an Ativan infusion. He is currently off the Ativan drip and stable for gen med floor Respiratory: No active issues ID: No active issues CVS: History of Hypertension, SVTs Patient is currently off Ativan drip * Continue home dose of amlodipine and metoprolol * Monitor vitals * Consider IV hydralazine and or low dose metoprolol IV for bp management if SBP persistently > 160 * Give IV Lasix 20 mg Hematology: No active issues Metabolic: History of diabetes * Accuchecks and Novolog SS Hypokalemia, Hypomagnesemia * Monitor and replete PRN Alimentary: Alcohol detox * Continue librium 75 mg q8 today and taper * Ativan as per [facility] protocol * Continue Folic acid and Thiamine Nephrology: No active issue DVT prophylaxis-subcutaneous heparin Diet: Clear liquids, advance as tolerated CODE STATUS-full code.
[2017-04-18 10:34] LABS: ABSOLUTE BASOPHIL COUNT 0 /CUMM (0.0-0.2); ABSOLUTE EOSINOPHIL COUNT 0.3 /CUMM (0.0-0.7); ABSOLUTE GRANULOCYTE CT 5.5 /CUMM (1.4-6.5); ABSOLUTE MONOCYTE COUNT 0.9 /CUMM (0.10-0.60); BASOPHIL % 0.3 % (0.0-2.0); EOSINOPHIL % 3.2 % (0-5); GRANULOCYTE % 63.7 % (42.2-75.2); HEMATOCRIT 44.4 % (42-52); MEAN CORPUSCULAR HGB CONC 34.8 G/DL (33.0-37.0); MEAN CORPUSCULAR VOLUME 94.8 FL (80.0-94.0); MEAN PLATELET VOLUME 8.2 FL (7.4-10.4); PLATELET COUNT 177 /CUMM (130-400); RBC DISTRIBUTION WIDTH 14.1 % (11.5-14.5); RED BLOOD CELL CT 4.69 /CUMM (4.70-6.10); WHITE BLOOD CELL COUNT 8.7 /CUMM (4.8-10.8)
--- NOTE | 2017-04-18 11:21 | PN- Psychiatry ---
Assessment/Plan Impression: The patient is lethargic, and not responding completely appropriately today. He will probably not be able to make his [facility] intake appointment today at 1530, and I have cancelled it. The patient is reporting some visual hallucinations last night, and may benefit from a small, as needed, dose of haloperidol, which I have ordered. Last EKG on 04/15/17 shows SR QTc 431 mS. Na, K, Mg, Ca, PO4 WNL today. Suggestion: 1.Haloperidol 1 mg PO every 4 hours as needed for visual, tactile or auditory hallucinations, or severe agitation. Hold for oversedation, respiratory depression, arrythmia or QTc greater than 475 mS. 2. Continue Librium taper. 3. Please advise when the discharge date is known so that the [facility] appointment can be rescheduled. We would prefer to have this within a day of medical discharge, if not the same day. Problem List: 1. Alcohol dependence syndrome Subjective Subjective: The patient is lethargic, sitting in his chair with a sitter present. He is oriented to person. place, day, month, year, but not date (). Speech is slow with some word finding difficulty, but without appreciable delay. He is reporting vague visual disturbances last night, "Black out windows." He denies AH. When asked about depression, he reports that "My son became somewhat mentally ill." He endorses hopelessness and helplessness, but denies feelings of worthlessness or guilt. He denies feelings of anxiety. He denies SI or HI. Asked about his feelings about stopping drinking, he states that he does not want to cut out his social life, his family life or his participation at parties. He states that it is a fine line between his social life and sobriety. Review of Systems Neurological/Psychological: Reports: depressed. Denies: anxiety. Objective Last 24 Hrs of Vital Signs/I&O Vital Signs Date Time Temp Pulse Resp B/P B/P Pulse O2 O2 Flow FiO2 Mean Ox Delivery Rate 04/18 1049 Room Air Room Air 04/18 0658 97.6 58 18 114/78 98 Room Air 04/18 0600 98.0 67 18 116/60 04/18 0400 98.0 67 18 116/60 04/18 0200 98.0 67 18 116/60 04/18 0200 97.8 64 18 120/82 97 Room Air 04/18 0000 98.0 67 18 116/60 04/17 2148 98.0 67 18 116/60 96 Room Air 04/17 2048 67 116/60 04/17 1802 98.7 66 20 128/70 95 Room Air 04/17 1519 97.5 72 20 112/56 96 Room Air Intake & Output 04/18 1600 04/18 0800 04/18 0000 Intake Total 600 900 Output Total 200 300 Balance 400 600 Intake, Oral 600 900 Output, Urine 200 300 Physical Exam: Not performed. Physical Exam General Appearance: no apparent distress, lethargic Neurologic/Psychiatric: depressed affect Current Medications: Current Medications Sig/Will Start time Last Medication Dose Route Stop Time Status Admin Acetaminophen 650 MG Q8P PRN 04/11 0400 AC PO Amlodipine Besylate 10 MG DAILY 04/11 1000 AC 04/18 PO 1134 Chlordiazepoxide HCl 75 MG Q12H 04/18 1800 AC PO Chlordiazepoxide HCl 75 MG Q8 04/17 1400 DC 04/18 PO 0544 Chlorhexidine 10 ML Q6 04/16 1400 AC 04/18 Gluconate PO 1135 Enoxaparin Sodium 40 MG DAILY 04/16 1000 AC 04/18 SC 1134 Folic Acid 1 MG DAILY 04/11 1000 AC 04/18 PO 1133 Furosemide 40 MG .STK-MED ONE 04/17 1336 DC IV 04/17 1337 Furosemide 20 MG ONCE ONE 04/17 1330 DC 04/17 IV 04/17 1331 1339 Haloperidol 1 MG Q6P PRN 04/18 1245 AC PO Lorazepam 0 Q1P PRN 04/16 1215 AC 04/17 IV 1802 Metoprolol Tartrate 12.5 MG BID 04/11 2200 AC 04/18 PO 1134 Multivitamins 1 TAB DAILY 04/11 1000 AC 04/18 PO 1134 Omeprazole 40 MG DAILY AC 04/17 0700 AC 04/18 PO 0544 Thiamine HCl 100 MG DAILY 04/11 1000 AC 04/18 PO 1134 Results Last 24 Hrs of Labs/Mics: Laboratory Tests 04/18 0820 Chemistry Sodium (137 - 145 mmol/L) 139 Potassium (3.5 - 5.1 mmol/L) 4.0 Chloride (98 - 107 mmol/L) 106 Carbon Dioxide (22 - 30 mmol/L) 20 L Anion Gap (5 - 16) 12 BUN (9 - 20 mg/dL) 9 Creatinine (0.7 - 1.2 mg/dL) 0.9 Estimated GFR (>60 ml/min) > 60 Glucose (65 - 99 mg/dL) 97 Calcium (8.4 - 10.2 mg/dL) 9.2 Phosphorus (2.5 - 4.5 mg/dL) 3.4 Magnesium (1.6 - 2.3 mg/dL) 2.0 Total Bilirubin (0.2 - 1.3 mg/dL) 1.5 H AST (17 - 59 U/L) 40 ALT (21 - 72 U/L) 59 Albumin (3.5 - 5.0 g/dL) 4.0 Hematology CBC w Diff NO MAN DIFF REQ WBC (4.8 - 10.8 /CUMM) 8.7 RBC (4.70 - 6.10 /CUMM) 4.69 L Hgb (14.0 - 18.0 G/DL) 15.5 Hct (42 - 52 %) 44.4 MCV (80.0 - 94.0 FL) 94.8 H MCH (27.0 - 31.0 PG) 33.0 H RDW (11.5 - 14.5 %) 14.1 Plt Count (130 - 400 /CUMM) 177 MPV (7.4 - 10.4 FL) 8.2 Gran % (42.2 - 75.2 %) 63.7 Lymphocytes % (20.5 - 51.1 %) 22.9 Monocytes % (1.7 - 9.3 %) 9.9 H Eosinophils % (0 - 5 %) 3.2 Basophils % (0.0 - 2.0 %) 0.3 Absolute Granulocytes (1.4 - 6.5 /CUMM) 5.5 Absolute Lymphocytes (1.2 - 3.4 /CUMM) 2.0 Absolute Monocytes (0.10 - 0.60 /CUMM) 0.9 H Absolute Eosinophils (0.0 - 0.7 /CUMM) 0.3 Absolute Basophils (0.0 - 0.2 /CUMM) 0 PUBS MCHC (33.0 - 37.0 G/DL) 34.8
--- NOTE | 2017-04-18 11:23 | PN- Housestaff ---
Rebel TERRAZAS,[facility] 04/18/17 1123: Subjective Follow-up For: etoh withdrawal Subjective: Pt states he is doing well. States he slept like a log. Complaints that he feels liek his balance feels like staggering. Has no other complaints. No pain. Review of Systems Constitutional: Reports: no symptoms. Cardiovascular: Reports: no symptoms. Respiratory: Reports: no symptoms. Gastrointestinal: Reports: no symptoms. Genitourinary: Reports: no symptoms. Musculoskeletal: Reports: no symptoms. Objective Last 24 Hrs of Vital Signs/I&O Vital Signs Date Time Temp Pulse Resp B/P B/P Pulse O2 O2 Flow FiO2 Mean Ox Delivery Rate 04/18 2110 78 118/78 04/18 1450 97.9 60 18 118/70 98 Room Air 04/18 1400 97.6 58 20 114/78 04/18 1134 98.1 80 20 124/76 04/18 1123 Room Air Room Air 04/18 1112 Room Air Room Air 04/18 1049 Room Air Room Air 04/18 1000 97.6 58 20 114/78 04/18 0800 97.6 58 20 114/78 03 0658 97.6 58 18 114/78 98 Room Air 04/18 0600 98.0 67 18 116/60 /03 0400 98.0 67 18 116/60 /03 0200 98.0 67 18 116/60 /03 0200 97.8 64 18 120/82 97 Room Air / 0000 98.0 67 18 116/60 Intake & Output 04/18 1600 04/18 0800 04/18 0000 Intake Total 600 900 Output Total 200 300 Balance 400 600 Intake, Oral 600 900 Output, Urine 200 300 Physical Exam General Appearance: Alert, Cooperative, No Acute Distress, AOX2, flat affect Skin Temp/Moisture Exam: Warm/Dry Cardiovascular: Regular Rate, Normal S1, Normal S2 Lungs: Clear to Auscultation, Normal Air Movement Abdomen: Normal Bowel Sounds, Soft, No Tenderness Vascular: 2+ radial pulses Current Medications: Current Medications Sig/Will Start time Last Medication Dose Route Stop Time Status Admin Acetaminophen 650 MG Q8P PRN 04/11 0400 AC PO Amlodipine Besylate 10 MG DAILY 04/11 1000 AC 04/18 PO 1134 Chlordiazepoxide HCl 75 MG Q12H 04/18 1800 AC 04/18 PO 1816 Chlordiazepoxide HCl 75 MG Q8 04/17 1400 DC 04/18 PO 0544 Chlorhexidine 10 ML Q6 04/16 1400 AC 04/18 Gluconate PO 1816 Enoxaparin Sodium 40 MG DAILY 04/16 1000 AC 04/18 SC 1134 Folic Acid 1 MG DAILY 04/11 1000 AC 04/18 PO 1133 Haloperidol 1 MG Q6P PRN 04/18 1245 AC PO Lorazepam 0 Q1P PRN 04/16 1215 AC 04/17 IV 1802 Metoprolol Tartrate 12.5 MG BID 04/11 2200 AC 04/18 PO 2110 Multivitamins 1 TAB DAILY 04/11 1000 AC 04/18 PO 1134 Omeprazole 40 MG DAILY AC 04/17 0700 AC 04/18 PO 0544 Thiamine HCl 100 MG DAILY 04/11 1000 AC 04/18 PO 1134 Last 24 Hrs of Lab/Polo Results Last 24 Hrs of Labs/Mics: Laboratory Tests 04/18/17 0820: Anion Gap 12, Estimated GFR > 60, Glucose 97, Calcium 9.2, Phosphorus 3.4, Magnesium 2.0, Total Bilirubin 1.5 H, AST 40, ALT 59, Albumin 4.0, CBC w Diff NO MAN DIFF REQ, RBC 4.69 L, MCV 94.8 H, MCH 33.0 H, RDW 14.1, MPV 8.2, Gran % 63.7, Lymphocytes % 22.9, Monocytes % 9.9 H, Eosinophils % 3.2, Basophils % 0.3, Absolute Granulocytes 5.5, Absolute Lymphocytes 2.0, Absolute Monocytes 0.9 H, Absolute Eosinophils 0.3, Absolute Basophils 0, PUBS MCHC 34.8 Assessment/Plan Assessment: Mr. Gunderson is a 66-year-old gentleman with a past medical history of alcohol abuse, alcohol related seizures, paroxysmal SVTs, initially admitted to general medicine floor for alcohol detox. He was transferred to ICU for further management with an Ativan infusion. He is off the Ativan drip and stable for gen med floor #Alcohol detox -Continue librium 75 mg q12 today and continue taper -Ativan as per [facility] protocol -Continue Folic acid and Thiamine, omeprazole -haldol 1mg q4 prn per psych #gait instability Most likely due to etoh -pt and OT recommends STR #elevated tbili 1.5 -may be transient/standard deviation error, fu repeat lft tomorrow #History of Hypertension, SVTs -Continue home dose of amlodipine and metoprolol #History of diabetes -Accuchecks and Novolog SS #Hypokalemia, Hypomagnesemia -Monitor and replete PRN DVT prophylaxis-subcutaneous heparin CODE STATUS-full code. Problem List: 1. Alcohol intoxication 2. Gait instability Pain Ratin Pain Location: none Pain Goal: Pain 4 or less Pain Plan: pain pathway Tomorrow's Labs & Rationales: lft AnnieManolo dodson 04/18/17 1257: Attending MD Review Statement Attending Statement Attending MD Statement: examined this patient, discuss w/resident/PA/[employer], agreed w/resident/PA/[employer], discussed with family, reviewed EMR data (avail), discussed with nursing, discussed with case mgmt, reviewed images, amended to note Attending Assessment/Plan: Patient seen/examined bedside. His mental status appears improving but not fully oriented. He is aaox 2-3 but slow in speech. Patient has toro catheter with clear urine. Patient is on librium taper. Pyshc consulted and recommend haldol 1mg q 4 prn. Patient toro catheter is disconitnued. Cont current care..
--- NOTE | 2017-04-18 11:59 | Discharge Summary ---
Visit Information Visit Dates Admission Date: 04/11/17 Discharge Date: 04/23/2017 Hospital Course Course Attending Physician: Manolo Valencia MD Primary Care Physician: Yu Fang MD Hospital Course: Mr. Gunderson is a 66-year-old gentleman with a past medical history of alcohol abuse, alcohol related seizures, paroxysmal SVTs, initially admitted to general medicine floor for alcohol detox. He was transferred to ICU for significant alcohol delerium and agitation which managed with Ativan infusion, he was also had significant hypertension related to pre-existing hypertension and severe delirium, which improved, patient remains in sinus rhythm throughout his ICU stay, he was switched to Librium slow taper and transfered back to general medicine floor to continue his Librium taper. Patient was seen by psychiatry service at who is going to reschedule his appointment at [facility]. Patient evaluated by PT who recommeded STR Complications: Non Allergies: Coded Allergies: No Known Allergies (10/11/16) Disposition Summary Disposition Principal Diagnosis: Alcohol withdrawal Hx. of hypertension Additional Diagnosis: As above Discharge Disposition: SNF Discharge Instructions General Discharge Information Code Status: Full Code Patient's Diet: Heart healthy diet Patient's Activity: As tolerated Follow-Up Instructions/Appts: -Follow up with your primary care physician after discharge Medications at Discharge Discharge Medications: Continue taking these medications: Amlodipine Besylate (Amlodipine Besylate) 10 MG TABLET 1 Tablet ORAL DAILY Qty = 90 Comments: Last Taken: 04/23/17 Time: 09:30 AM Metoprolol Tartrate (Metoprolol Tartrate) 25 MG TABLET 0.5 Tablet ORAL DAILY Qty = 45 Comments: Last Taken:04/23/17 Time:929 Pioglitazone HCl (Actos) 30 MG TABLET Unknown Dose ORAL Comments: DID NOT TAKE IN HOSPITAL Start taking the following new medications: Omeprazole (Omeprazole) 20 MG CAPSULE.DR 2 Tablet ORAL DAILY BEFORE BREAKFAST Qty = 60 No Refills Comments: Last Taken:04/23/17 Time:929 Folic Acid (Folic Acid) 1 MG TABLET 1 Tablet ORAL DAILY Qty = 30 No Refills Comments: Last Taken:04/23/17 Time:0930 Thiamine HCl (Vitamin B-1) 100 MG TABLET 1 Tablet ORAL DAILY Qty = 30 No Refills Comments: Last Taken:04/23/17 Time:929 Multivitamin (One Daily Multivitamin) 1 EACH TABLET 1 Tablet ORAL DAILY Qty = 30 No Refills Comments: Last Taken:04/23/17 Time:0930 Copies To: Manolo Valencia MD Attending MD Review Statement Documenting Attending: Manolo Valencia MD Other Findings: Patient discharged to rehab after completing detox at [facility]. Patient home meds stated that he was precribed pioglitazone in past however he is not complaint with his meds. Patient recent hba1c 5.5 borderline and mild elevation of glucose during the hospital stay. Patient to be monitored for DM as outpatient. updated and pioglitazone discontinued for now. Spoke to STR about medications at discharge. Follow up PCP in 3-5 days of discharge. F/u o/p IOP appointment on 27 April as scheduled.
[2017-04-19] VITALS (7 sets, daily range): BP systolic 108–132; BP diastolic 60–86
--- NOTE | 2017-04-19 07:53 | PN- Housestaff ---
Rebel TERRAZAS,[facility] 04/19/17 0752: Subjective Follow-up For: maris ruffin Subjective: Pt states he is doing well. No complaints. Review of Systems Constitutional: Reports: no symptoms. Cardiovascular: Reports: no symptoms. Respiratory: Reports: no symptoms. Gastrointestinal: Reports: no symptoms. Genitourinary: Reports: no symptoms. Musculoskeletal: Reports: no symptoms. Objective Last 24 Hrs of Vital Signs/I&O Vital Signs Date Time Temp Pulse Resp B/P B/P Pulse O2 O2 Flow FiO2 Mean Ox Delivery Rate 04/19 1142 97.4 64 16 128/86 96 Room Air 04/19 0800 98.5 56 16 118/64 04/19 0600 98.5 56 16 118/64 04/19 0200 98.5 56 16 118/64 96 Room Air 04/19 0000 97.3 65 19 108/64 04/18 2209 97.3 65 19 108/64 96 Room Air 04/18 2110 78 118/78 Intake & Output 04/19 1600 04/19 0800 04/19 0000 Intake Total 480 600 860 Output Total 400 Balance 480 200 860 Intake, Oral 480 600 860 Number 0 Bowel Movements Output, Urine 400 Physical Exam General Appearance: Alert, Cooperative, No Acute Distress Skin Temp/Moisture Exam: Warm/Dry Cardiovascular: Regular Rate, Normal S1, Normal S2 Lungs: Clear to Auscultation, Normal Air Movement Abdomen: Normal Bowel Sounds, Soft, No Tenderness Extremities: 2+ radial pulses Current Medications: Current Medications Sig/Will Start time Last Medication Dose Route Stop Time Status Admin Acetaminophen 650 MG Q8P PRN 04/11 0400 AC PO Amlodipine Besylate 10 MG DAILY 04/11 1000 AC 04/19 PO 0816 Chlordiazepoxide HCl 50 MG Q12H 04/19 1800 AC PO Chlordiazepoxide HCl 75 MG Q12H 04/18 1800 DC 04/19 PO 0640 Chlorhexidine 10 ML Q6 04/16 1400 AC 04/19 Gluconate PO 1211 Enoxaparin Sodium 40 MG DAILY 04/16 1000 AC 04/19 SC 0816 Folic Acid 1 MG DAILY 04/11 1000 AC 04/19 PO 0816 Haloperidol 1 MG Q6P PRN 04/18 1245 AC PO Lorazepam 0 Q1P PRN 04/16 1215 AC 04/17 IV 1802 Metoprolol Tartrate 12.5 MG BID 04/11 2200 AC 04/19 PO 0816 Multivitamins 1 TAB DAILY 04/11 1000 AC 04/19 PO 0816 Omeprazole 40 MG DAILY AC 04/17 0700 AC 04/19 PO 0640 Thiamine HCl 100 MG DAILY 04/11 1000 AC 04/19 PO 0816 Last 24 Hrs of Lab/Polo Results Last 24 Hrs of Labs/Mics: Laboratory Tests 04/19/17 0730: Total Bilirubin 0.8, Direct Bilirubin 0.3, AST 36, ALT 50, Alkaline Phosphatase 60, Total Protein 6.0 L, Albumin 3.5 Assessment/Plan Assessment: Mr. Gunderson is a 66-year-old gentleman with a past medical history of alcohol abuse, alcohol related seizures, paroxysmal SVTs, initially admitted to general medicine floor for alcohol detox. He was transferred to ICU for further management with an Ativan infusion. He is off the Ativan drip and stable for gen med floor #Alcohol detox CIWA max 4 in 24 hrs. No haldol -Continue librium 50 mg q12 today and continue taper -Ativan as per CIWA protocol -Continue Folic acid and Thiamine, omeprazole -haldol 1mg q4 prn per psych #gait instability Better today Most likely due to etoh -pt and OT recommends STR #elevated tbili 1.5 -> 0.8 -most likely transient/standard deviation error #History of Hypertension, SVTs -Continue home dose of amlodipine and metoprolol #History of diabetes -Accuchecks and Novolog SS #Hypokalemia, Hypomagnesemia -Monitor and replete PRN DVT prophylaxis-subcutaneous heparin CODE STATUS-full code. Problem List: 1. Alcohol withdrawal Pain Ratin Pain Location: none Pain Goal: Pain 4 or less Pain Plan: pathway Tomorrow's Labs & Rationales: cbc bep AnnieManolo dodson 04/19/17 1133: Attending MD Review Statement Attending Statement Attending MD Statement: examined this patient, discuss w/resident/PA/TRAFFIC COUNTER, agreed w/resident/PA/TRAFFIC COUNTER, discussed with family, reviewed EMR data (avail), discussed with nursing, discussed with case mgmt, reviewed images, amended to note Attending Assessment/Plan: Patient seen/examined bedside. His mental status appears improving but not fully oriented. He is aaox 2-3 but slow in speech. Patient sleeping comfortbaly this am. Patient has toro catheter with clear urine. Patient is on librium taper. Pyshc consulted and recommend haldol 1mg q 4 prn. Cont current care..
[2017-04-20] VITALS (10 sets, daily range): BP systolic 118–134; BP diastolic 64–72
--- NOTE | 2017-04-20 07:15 | PN- Housestaff ---
Rebel TERRAZAS,[facility] 04/20/17 0715: Subjective Follow-up For: etoh withdrawal Subjective: No acute events overnight. Patient states he slept fine last night. States that the breakfast this morning did not taste good. States that he did urinate outside his room. Review of Systems Constitutional: Denies: see HPI. Cardiovascular: Reports: no symptoms. Respiratory: Reports: no symptoms. Gastrointestinal: Reports: no symptoms. Genitourinary: Reports: see HPI (urinated in hallway). Musculoskeletal: Reports: no symptoms. Objective Last 24 Hrs of Vital Signs/I&O Vital Signs Date Time Temp Pulse Resp B/P B/P Pulse O2 O2 Flow FiO2 Mean Ox Delivery Rate 04/20 1506 98.3 71 20 120/70 98 Room Air 04/20 1154 98.2 66 18 122/64 04/20 0829 99.0 72 18 120/72 04/20 0816 130/64 04/20 0600 99.2 64 20 118/66 / 0421 99.2 64 20 118/66 96 Room Air 04/20 0400 99.2 66 20 118/66 04/20 0200 98.9 73 20 120/70 04/20 0015 98.9 73 20 120/70 98 Room Air / 0000 98.9 98 20 120/70 04/19 2242 72 132/60 04/19 2203 98.9 72 20 132/60 96 Room Air Intake & Output 04/20 1600 04/20 0800 04/20 0000 Intake Total 720 480 480 Output Total Balance 720 480 480 Intake, Oral 720 480 480 Number 1 Bowel Movements Physical Exam General Appearance: Alert, Oriented X3, Cooperative Skin Temp/Moisture Exam: Warm/Dry Cardiovascular: Regular Rate, Normal S1, Normal S2 Lungs: Clear to Auscultation, Normal Air Movement Abdomen: Normal Bowel Sounds, Soft, No Tenderness Extremities: 2+ radial pulses Current Medications: Current Medications Sig/Will Start time Last Medication Dose Route Stop Time Status Admin Acetaminophen 650 MG Q8P PRN 04/11 0400 AC PO Amlodipine Besylate 10 MG DAILY 04/11 1000 AC 04/20 PO 0816 Chlordiazepoxide HCl 25 MG Q12H 04/20 1800 AC PO Chlordiazepoxide HCl 50 MG Q12H 04/19 1800 DC 04/20 PO 0637 Chlorhexidine 10 ML Q6 04/16 1400 AC 04/20 Gluconate PO 1141 Enoxaparin Sodium 40 MG DAILY 04/16 1000 AC 04/20 SC 0816 Folic Acid 1 MG DAILY 04/11 1000 AC 04/20 PO 0816 Haloperidol 1 MG Q6P PRN 04/18 1245 AC PO Lorazepam 0 Q1P PRN 04/16 1215 AC 04/17 IV 1802 Metoprolol Tartrate 12.5 MG BID 04/11 2200 AC 04/20 PO 0816 Multivitamins 1 TAB DAILY 04/11 1000 AC 04/20 PO 0817 Omeprazole 40 MG DAILY AC 04/17 0700 AC 04/20 PO 0637 Potassium Chloride 40 MEQ ONCE ONE 04/20 1015 DC 04/20 PO 04/20 1016 1140 Thiamine HCl 100 MG DAILY 04/11 1000 AC 04/20 PO 0817 Last 24 Hrs of Lab/Polo Results Last 24 Hrs of Labs/Mics: Laboratory Tests 04/20/17 0645: Anion Gap 10, Estimated GFR > 60, BUN/Creatinine Ratio 7.1, CBC w Diff NO MAN DIFF REQ, RBC 4.04 L, MCV 95.3 H, MCH 33.3 H, RDW 14.0, MPV 8.4, Gran % 71.3, Lymphocytes % 14.9 L, Monocytes % 12.7 H, Eosinophils % 0.9, Basophils % 0.2, Absolute Granulocytes 8.3 H, Absolute Lymphocytes 1.7, Absolute Monocytes 1.5 H, Absolute Eosinophils 0.1, Absolute Basophils 0, PUBS MCHC 35.0 Assessment/Plan Assessment: Mr. Gunderson is a 66-year-old gentleman with a past medical history of alcohol abuse, alcohol related seizures, paroxysmal SVTs, initially admitted to general medicine floor for alcohol detox. He was transferred to ICU for further management with an Ativan infusion. He is off the Ativan drip and stable for gen med floor #Alcohol detox CIWA max 4 in 24 hrs. No haldol -Continue librium 25 mg q12 today and continue taper -Ativan as per CIWA protocol -Continue Folic acid and Thiamine, omeprazole -haldol 1mg q4 prn per psych #gait instability Most likely due to etoh -pt and OT recommends STR #elevated tbili 1.5 -> 0.8 -most likely transient/standard deviation error #History of Hypertension, SVTs -Continue home dose of amlodipine and metoprolol #History of diabetes -Accuchecks and Novolog SS #Hypokalemia, Hypomagnesemia -Monitor and replete PRN DVT prophylaxis-subcutaneous heparin CODE STATUS-full code. Problem List: 1. Alcohol withdrawal Pain Ratin Pain Location: no pain Pain Goal: Pain 4 or less Pain Plan: none Tomorrow's Labs & Rationales: cbc bep Manolo Valencia 04/20/17 1219: Attending MD Review Statement Attending Statement Attending MD Statement: examined this patient, discuss w/resident/PA/DAIRY ASSOCIATE, agreed w/resident/PA/DAIRY ASSOCIATE, discussed with family, reviewed EMR data (avail), discussed with nursing, discussed with case mgmt, reviewed images, amended to note Attending Assessment/Plan: Patient seen/examined bedside. His mental status appears improving but not fully oriented. He is aaox 2-3. Patient sleeping comfortbaly this am. Patient is on librium taper. Pyshc consulted and recommend haldol 1mg q 4 prn. Cont current care.. dc planning as his clinical condition improves. f/u SW and pyc for dc planning.
[2017-04-20 09:32] LABS: ABSOLUTE BASOPHIL COUNT 0 /CUMM (0.0-0.2); ABSOLUTE LYMPH COUNT 1.7 /CUMM (1.2-3.4); ABSOLUTE MONOCYTE COUNT 1.5 /CUMM (0.10-0.60)
[2017-04-20 09:47] LABS: ABSOLUTE EOSINOPHIL COUNT 0.1 /CUMM (0.0-0.7); ABSOLUTE GRANULOCYTE CT 8.3 /CUMM (1.4-6.5); BASOPHIL % 0.2 % (0.0-2.0); EOSINOPHIL % 0.9 % (0-5); GRANULOCYTE % 71.3 % (42.2-75.2); MEAN CORPUSCULAR HGB 33.3 PG (27.0-31.0); MEAN CORPUSCULAR VOLUME 95.3 FL (80.0-94.0); MEAN PLATELET VOLUME 8.4 FL (7.4-10.4); RED BLOOD CELL CT 4.04 /CUMM (4.70-6.10); WHITE BLOOD CELL COUNT 11.7 /CUMM (4.8-10.8)
[2017-04-20 09:52] LABS: HEMATOCRIT 38.5 % (42-52)
[2017-04-20 10:54] LABS: PLATELET COUNT 129 /CUMM (130-400)
[2017-04-21] VITALS (10 sets, daily range): BP systolic 112–136; BP diastolic 52–80
[2017-04-21 08:28] LABS: ABSOLUTE BASOPHIL COUNT 0 /CUMM (0.0-0.2); ABSOLUTE EOSINOPHIL COUNT 0 /CUMM (0.0-0.7); ABSOLUTE GRANULOCYTE CT 8.7 /CUMM (1.4-6.5); ABSOLUTE LYMPH COUNT 1.2 /CUMM (1.2-3.4); ABSOLUTE MONOCYTE COUNT 1.3 /CUMM (0.10-0.60); BASOPHIL % 0.1 % (0.0-2.0); EOSINOPHIL % 0.4 % (0-5); GRANULOCYTE % 77.1 % (42.2-75.2); HEMATOCRIT 34.9 % (42-52); MEAN CORPUSCULAR HGB 33.1 PG (27.0-31.0); MEAN CORPUSCULAR HGB CONC 35.1 G/DL (33.0-37.0); MEAN CORPUSCULAR VOLUME 94.3 FL (80.0-94.0); MEAN PLATELET VOLUME 7.7 FL (7.4-10.4); RBC DISTRIBUTION WIDTH 13.8 % (11.5-14.5); WHITE BLOOD CELL COUNT 11.3 /CUMM (4.8-10.8)
[2017-04-21 09:17] LABS: PLATELET COUNT 212 /CUMM (130-400)
--- NOTE | 2017-04-21 10:34 | PN- Housestaff ---
Rebel TERRAZAS,[facility] 04/21/17 1033: Subjective Follow-up For: Alcohol withdrawal Subjective: Patient states that he is doing well. His only complaint is that maintenance did not fix the bathroom door. Review of Systems Constitutional: Reports: see HPI. Cardiovascular: Reports: no symptoms. Respiratory: Reports: no symptoms. Gastrointestinal: Reports: no symptoms. Genitourinary: Reports: no symptoms. Musculoskeletal: Reports: no symptoms. Objective Last 24 Hrs of Vital Signs/I&O Vital Signs Date Time Temp Pulse Resp B/P B/P Pulse O2 O2 Flow FiO2 Mean Ox Delivery Rate 04/21 1128 98.8 98 20 135/80 96 04/21 0850 98.8 72 20 112/60 04/21 0600 98.8 72 20 112/60 04/21 0600 98.8 72 20 112/60 95 Room Air 04/21 0215 98.8 76 18 136/58 96 Room Air 04/21 0200 98.8 76 18 136/58 04/20 2227 98.8 79 20 134/64 95 Room Air 04/20 2214 98.8 79 20 134/64 04/20 1506 98.3 71 20 120/70 98 Room Air Intake & Output 04/21 1600 04/21 0800 04/21 0000 Intake Total 100 480 Output Total Balance 100 480 Intake, IV 0 Intake, Oral 100 480 Number 0 Bowel Movements Physical Exam General Appearance: Alert, Cooperative, No Acute Distress Skin Temp/Moisture Exam: Warm/Dry Cardiovascular: Regular Rate, Normal S1, Normal S2 Lungs: Clear to Auscultation, Normal Air Movement Abdomen: Normal Bowel Sounds, Soft, No Tenderness Vascular: 2+ radial pulses Current Medications: Current Medications Sig/Will Start time Last Medication Dose Route Stop Time Status Admin Acetaminophen 650 MG Q8P PRN 04/11 0400 AC PO Amlodipine Besylate 10 MG DAILY 04/11 1000 AC 04/21 PO 0850 Chlordiazepoxide HCl 25 MG Q12H 04/20 1800 AC 04/21 PO 0625 Chlordiazepoxide HCl 50 MG Q12H 04/19 1800 DC 04/20 PO 0637 Chlorhexidine 10 ML Q6 04/16 1400 AC 04/21 Gluconate PO 0625 Enoxaparin Sodium 40 MG DAILY 04/16 1000 AC 04/21 SC 0851 Folic Acid 1 MG DAILY 04/11 1000 AC 04/21 PO 0850 Haloperidol 1 MG Q6P PRN 04/18 1245 AC PO Lorazepam 0 Q1P PRN 04/16 1215 AC 04/17 IV 1802 Metoprolol Tartrate 12.5 MG BID 04/11 2200 AC 04/21 PO 0851 Multivitamins 1 TAB DAILY 04/11 1000 AC 04/21 PO 0850 Omeprazole 40 MG DAILY AC 04/17 0700 AC 04/21 PO 0625 Thiamine HCl 100 MG DAILY 04/11 1000 AC 04/21 PO 0850 Last 24 Hrs of Lab/Polo Results Last 24 Hrs of Labs/Mics: Laboratory Tests 04/21/17 0744: Anion Gap 10, Estimated GFR > 60, BUN/Creatinine Ratio 10.0, CBC w Diff NO MAN DIFF REQ, RBC 3.70 L, MCV 94.3 H, MCH 33.1 H, RDW 13.8, MPV 7.7, Gran % 77.1 H, Lymphocytes % 11.1 L, Monocytes % 11.3 H, Eosinophils % 0.4, Basophils % 0.1, Absolute Granulocytes 8.7 H, Absolute Lymphocytes 1.2, Absolute Monocytes 1.3 H, Absolute Eosinophils 0, Absolute Basophils 0, PUBS MCHC 35.1 Assessment/Plan Assessment: Mr. Christianson is a 66-year-old gentleman with a past medical history of alcohol abuse, alcohol related seizures, paroxysmal SVTs, initially admitted to general medicine floor for alcohol detox. He was transferred to ICU for further management with an Ativan infusion. He is off the Ativan drip and stable for [facility] med floor #Alcohol detox CIWA max 3 in 24 hrs. No haldol given -Continue librium 25 mg daily and continue taper -Ativan as per CIWA protocol -Continue Folic acid and Thiamine, omeprazole -haldol 1mg q4 prn per psych #leukocytosis WBC 11.3, yesterday 11.7 Patient has had intermittent low-grade fevers of 99 -Asymptomatic, continue to monitor #gait instability Most likely due to etoh -pt and OT recommends STR #elevated tbili 1.5 -> 0.8 -most likely transient/standard deviation error #History of Hypertension, SVTs -Continue home dose of amlodipine and metoprolol #History of diabetes -Accuchecks and Novolog SS #Hypokalemia, Hypomagnesemia -Monitor and replete PRN DVT prophylaxis-subcutaneous heparin CODE STATUS-full code. Problem List: 1. Alcohol withdrawal 2. Leukocytosis Pain Ratin Pain Location: None Pain Goal: Pain 4 or less Pain Plan: pain pathway Tomorrow's Labs & Rationales: cbc bep Manolo Valencia 04/21/17 1508: Attending MD Review Statement Attending Statement Attending MD Statement: examined this patient, discuss w/resident/PA/RETAIL PERFORMANCE COACH, agreed w/resident/PA/RETAIL PERFORMANCE COACH, discussed with family, reviewed EMR data (avail), discussed with nursing, discussed with case mgmt, reviewed images, amended to note Attending Assessment/Plan: Patient seen/examined bedside. His mental status appears improving but not fully oriented. He is aaox 2-3. Patient with no new complaints. Patient is on librium taper. Pyshc consulted and recommend haldol 1mg q 4 prn. Cont current care.. dc planning as his clinical condition improves. f/u SW and pyshc for dc planning. anticipate dc soon.
[2017-04-22] VITALS (9 sets, daily range): BP systolic 114–140; BP diastolic 58–80
[2017-04-22 09:28] LABS: ABSOLUTE BASOPHIL COUNT 0 /CUMM (0.0-0.2); ABSOLUTE EOSINOPHIL COUNT 0.1 /CUMM (0.0-0.7); ABSOLUTE LYMPH COUNT 1.3 /CUMM (1.2-3.4); BASOPHIL % 0.3 % (0.0-2.0); EOSINOPHIL % 1.3 % (0-5); GRANULOCYTE % 76.4 % (42.2-75.2); HEMATOCRIT 34.8 % (42-52); MEAN CORPUSCULAR HGB 32.9 PG (27.0-31.0); MEAN CORPUSCULAR HGB CONC 34.8 G/DL (33.0-37.0); MEAN CORPUSCULAR VOLUME 94.6 FL (80.0-94.0); MEAN PLATELET VOLUME 8.1 FL (7.4-10.4); PLATELET COUNT 240 /CUMM (130-400); RBC DISTRIBUTION WIDTH 13.1 % (11.5-14.5); RED BLOOD CELL CT 3.68 /CUMM (4.70-6.10); WHITE BLOOD CELL COUNT 10.5 /CUMM (4.8-10.8)
--- NOTE | 2017-04-22 09:48 | PN- Housestaff ---
Rebel TERRAZAS,[facility] [place] 04/22/17 0948: Subjective Follow-up For: etoh withdarwal Subjective: no complaints Review of Systems Constitutional: Reports: no symptoms. Cardiovascular: Reports: no symptoms. Respiratory: Reports: no symptoms. Gastrointestinal: Reports: no symptoms. Genitourinary: Reports: no symptoms. Objective Last 24 Hrs of Vital Signs/I&O Vital Signs Date Time Temp Pulse Resp B/P B/P Pulse O2 O2 Flow FiO2 Mean Ox Delivery Rate 04/22 2200 66 114/60 04/22 1933 97.7 63 20 114/60 98 04/22 1532 98.8 67 20 140/80 97 04/22 1400 98.7 102 20 132/76 04/22 1200 98.0 102 20 132/76 04/22 1018 98.7 102 20 132/76 04/22 1018 98.7 102 20 132/76 04/22 1000 98.0 102 20 132/76 04/22 0800 98.7 102 20 132/76 04/22 0645 98.7 102 20 132/76 98 Room Air 04/22 0600 98.7 102 20 132/76 Intake & Output 04/22 1600 04/22 0800 04/22 0000 Intake Total 400 2000 290 Output Total Balance 400 2000 290 Intake, IV 0 10 Intake, Oral 400 2000 280 Number 1 Bowel Movements Physical Exam General Appearance: Alert, No Acute Distress, Mild Distress, patient jsut woke up from sleeping Skin Temp/Moisture Exam: Warm/Dry Cardiovascular: Regular Rate, Normal S1, Normal S2 Lungs: Clear to Auscultation, Normal Air Movement Abdomen: Normal Bowel Sounds, Soft, No Tenderness Vascular: 2+ radial pulses Current Medications: Current Medications Sig/Will Start time Last Medication Dose Route Stop Time Status Admin Acetaminophen 650 MG Q8P PRN 04/11 0400 AC PO Amlodipine Besylate 10 MG DAILY 04/11 1000 AC 04/22 PO 1018 Chlordiazepoxide HCl 25 MG ONCE ONE 04/22 06 DC 04/22 PO 04/22 0601 0635 Chlorhexidine 10 ML Q6 04/16 1400 AC 04/22 Gluconate PO 1714 Enoxaparin Sodium 40 MG DAILY 04/16 1000 AC 04/22 SC 1019 Folic Acid 1 MG DAILY 04/11 1000 AC 04/22 PO 1018 Haloperidol 1 MG Q6P PRN 01/03 1245 AC PO Lorazepam 0 Q1P PRN 04/16 1215 AC 04/17 IV 1802 Metoprolol Tartrate 12.5 MG BID 04/11 2200 AC 04/22 PO 2200 Multivitamins 1 TAB DAILY 04/11 1000 AC 04/22 PO 1018 Omeprazole 40 MG DAILY AC 04/17 0700 AC 04/22 PO 0635 Thiamine HCl 100 MG DAILY 04/11 1000 AC 04/22 PO 1018 Last 24 Hrs of Lab/Polo Results Last 24 Hrs of Labs/Mics: Laboratory Tests 04/22/17 0845: Anion Gap 8, Estimated GFR > 60, BUN/Creatinine Ratio 11.4, CBC w Diff NO MAN DIFF REQ, RBC 3.68 L, MCV 94.6 H, MCH 32.9 H, RDW 13.1, MPV 8.1, Gran % 76.4 H, Lymphocytes % 12.0 L, Monocytes % 10.0 H, Eosinophils % 1.3, Basophils % 0.3, Absolute Granulocytes 8.0 H, Absolute Lymphocytes 1.3, Absolute Monocytes 1.0 H, Absolute Eosinophils 0.1, Absolute Basophils 0, PUBS MCHC 34.8 Assessment/Plan Assessment: Mr. Christianson is a 66-year-old gentleman with a past medical history of alcohol abuse, alcohol related seizures, paroxysmal SVTs, initially admitted to general medicine floor for alcohol detox. He was transferred to ICU for further management with an Ativan infusion. He is off the Ativan drip and stable for gen med floor #Alcohol detox CIWA max 3 in 24 hrs. No haldol given -finish librium taper -Ativan as per CIWA protocol -Continue Folic acid and Thiamine, omeprazole -haldol 1mg q4 prn per psych #leukocytosis WBC 11.3 -> 10.5 Patient has had intermittent low-grade fevers of 99 previously -Asymptomatic, continue to monitor #gait instability Most likely due to etoh -pt and OT recommends STR #elevated tbili 1.5 -> 0.8 -most likely transient/standard deviation error #History of Hypertension, SVTs -Continue home dose of amlodipine and metoprolol #History of diabetes -Accuchecks and Novolog SS #Hypokalemia, Hypomagnesemia -Monitor and replete PRN DVT prophylaxis-subcutaneous heparin CODE STATUS-full code. Problem List: 1. Alcohol withdrawal Pain Ratin Pain Location: none Pain Goal: Pain 4 or less Pain Plan: pain pathway Tomorrow's Labs & Rationales: cbc bep Manolo Valencia 04/22/17 1225: Attending MD Review Statement Attending Statement Attending MD Statement: examined this patient, discuss w/resident/PA/BRIQUETTE MAKER, agreed w/resident/PA/BRIQUETTE MAKER, discussed with family, reviewed EMR data (avail), discussed with nursing, discussed with case mgmt, reviewed images, amended to note Attending Assessment/Plan: Patient seen/examined bedside. His mental status appears improving but not fully oriented. He is aaox 2-3. Patient with no new complaints. Patient is on librium taper. Pyshc consulted and recommend haldol 1mg q 4 prn. Patient is working with PT today. dc planning as his clinical condition improves and PT recs. f/u SW and pyc for dc planning. anticipate dc soon.
[2017-04-23 06:00] VITALS: BP 125/72
--- NOTE | 2017-04-23 08:23 | PN- Housestaff ---
Rebel TERRAZAS,[facility] 04/23/17 0823: Subjective Follow-up For: etoh withdrawal Subjective: No acute events overnight. No issues. States door still not fixed. Review of Systems Constitutional: Reports: no symptoms. Cardiovascular: Reports: no symptoms. Respiratory: Reports: no symptoms. Gastrointestinal: Reports: no symptoms. Genitourinary: Reports: no symptoms. Musculoskeletal: Reports: no symptoms. Objective Last 24 Hrs of Vital Signs/I&O Vital Signs Date Time Temp Pulse Resp B/P B/P Pulse O2 O2 Flow FiO2 Mean Ox Delivery Rate 04/23 1406 98.7 80 20 120/80 04/23 1000 98.7 80 20 120/80 95 04/23 0940 72 118/58 04/23 0940 72 118/58 04/23 0933 Room Air Room Air 04/23 0600 97.7 99 20 125/72 04/23 0600 97.7 99 20 125/72 97 Room Air 04/23 0000 Room Air 04/22 2300 98.2 72 20 118/58 95 04/22 2200 66 114/60 04/22 1933 97.7 63 20 114/60 98 Intake & Output 04/23 1600 08 0800 04/23 0000 Intake Total 500 100 290 Output Total Balance 500 100 290 Intake, IV 0 10 Intake, Oral 500 100 280 Number 0 Bowel Movements Physical Exam General Appearance: Alert, Cooperative, No Acute Distress Skin Temp/Moisture Exam: Warm/Dry Cardiovascular: Regular Rate, Normal S1, Normal S2 Lungs: Clear to Auscultation, Normal Air Movement Abdomen: Normal Bowel Sounds, Soft, No Tenderness Extremities: 2+ radial pulses Assessment/Plan Assessment: Mr. Christianson is a 66-year-old gentleman with a past medical history of alcohol abuse, alcohol related seizures, paroxysmal SVTs, initially admitted to general medicine floor for alcohol detox. He was transferred to ICU for further management with an Ativan infusion. He is off the Ativan drip and stable for gen med floor #Alcohol detox CIWA max 3 in 24 hrs. No haldol given -finished -ready for dsicharge -Continue Folic acid and Thiamine, omeprazole -outpatient IOP f/u #leukocytosis WBC 11.3 -> 10.5 -> 8.9 Patient has had intermittent low-grade fevers of 99 previously -Asymptomatic, continue to monitor #gait instability Most likely due to etoh -pt and OT recommends STR #elevated tbili 1.5 -> 0.8 -most likely transient/standard deviation error #History of Hypertension, SVTs -Continue home dose of amlodipine and metoprolol #History of diabetes -Accuchecks and Novolog SS #Hypokalemia, Hypomagnesemia -Monitor and replete PRN DVT prophylaxis-subcutaneous heparin CODE STATUS-full code. Problem List: 1. Alcohol withdrawal Pain Ratin Pain Location: none Pain Goal: Pain 4 or less Pain Plan: pain pathway Tomorrow's Labs & Rationales: none AnnieManolo dodson 04/23/17 1223: Attending MD Review Statement Attending Statement Attending MD Statement: examined this patient, discuss w/resident/PA/AUDIO TAPE LIBRARIAN, agreed w/resident/PA/AUDIO TAPE LIBRARIAN, discussed with family, reviewed EMR data (avail), discussed with nursing, discussed with case mgmt, reviewed images, amended to note Attending Assessment/Plan: Patient with no new complaints. PT working , case management on board, anticipate dc soon, abstain from alcohol. f/u o/p PCP in 1 week of dc.
[2017-04-23] MEDS ORDERED: VITAMIN B-1100 MG PO (09:12)
[2017-04-23] MEDS ORDERED: ONE DAILY MULT1 EAC2 PO (09:12)
[2017-04-23] MEDS ORDERED: FOLIC ACID1 M1 PO (09:12)
[2017-04-23] MEDS ORDERED: OMEPRAZOLE20 M2 PO (09:12)
--- NOTE | 2017-04-23 09:14 | Patient Discharge Instructions ---
Discharge Instructions General Discharge Information Special Instructions: Please follow up with your PCP in 1-2 weeks Please follow up with [facility] Intensive Outpatient program on Wednesday April 27, 2016 at 2:00pm. [address] [place] [address]. ([address]ross [address] from the hospital) Please a photo ID and insurance card. Please take your medications as scheduled. Acute Coronary Syndrome Inclusion Criteria At DC or during hospital stay patient has or had the following: Discharge Core Measures Meds if any: Prescribed or Continued at Discharge Meds if any: NOT Prescribed or Continued at Discharge Congestive Heart Failure Inclusion Criteria At DC or during hospital stay patient has or had the following: Discharge Core Measures Meds if any: Prescribed or Continued at Discharge Meds if any: NOT Prescribed or Continued at Discharge Cerebrovascular accident Inclusion Criteria At DC or during hospital stay patient has or had the following: CVA/TIA Diagnosis No Discharge Core Measures Meds if any: Prescribed or Continued at Discharge Meds if any: NOT Prescribed or Continued at Discharge Venous thromboembolism Discharge Core Measures - Per Current guidelines, there needs to be overlap - treatment for the first 5 days of Warfarin therapy. - If discharged on Warfarin prior to 5 days of - overlap therapy, the patient will need to be - assessed for post discharge needs including - *Post discharge parental anticoagulation - *Warfarin and/or parental anticoagulation education - *Follow up date to check INR post discharge Meds if any: Prescribed or Continued at Discharge Note: Overlap Therapy is Warfarin and Anticoagulant Meds if any: NOT Prescribed or Continued at Discharge
[2017-04-23 10:00] VITALS: BP 120/80
[2017-04-23 10:33] LABS: ABSOLUTE BASOPHIL COUNT 0 /CUMM (0.0-0.2); ABSOLUTE EOSINOPHIL COUNT 0.2 /CUMM (0.0-0.7); ABSOLUTE GRANULOCYTE CT 6.5 /CUMM (1.4-6.5); ABSOLUTE LYMPH COUNT 1.4 /CUMM (1.2-3.4); ABSOLUTE MONOCYTE COUNT 0.7 /CUMM (0.10-0.60); BASOPHIL % 0.3 % (0.0-2.0); EOSINOPHIL % 1.9 % (0-5); GRANULOCYTE % 73.3 % (42.2-75.2); HEMATOCRIT 35.9 % (42-52); MEAN CORPUSCULAR HGB CONC 34.9 G/DL (33.0-37.0); MEAN CORPUSCULAR VOLUME 94.5 FL (80.0-94.0); MEAN PLATELET VOLUME 8.1 FL (7.4-10.4); PLATELET COUNT 302 /CUMM (130-400); RBC DISTRIBUTION WIDTH 13.6 % (11.5-14.5); WHITE BLOOD CELL COUNT 8.9 /CUMM (4.8-10.8)
[2017-04-23 14:06] VITALS: BP 120/80
--- NOTE | 2017-04-24 10:51 | Event Note ---
Event Note Event Note: S: PATIENTS HAD QUESTIOMS ABOUT DIABETIC MED AND APPOINTMENT TIME FOR IOP O: PT ADMITTED ETOH DETOX A/P: The patient has pioglithiazone listed on his home medications in the [facility] records. I spoke to this who stated that he was never been on it. I called the nurse at [facility] who tried contacting the patients PCP and pharmacy. They told the nurse that the patient has never taken the medication. I told Bentley Arenas to continue monitoring the patient's sugars and to stop the pioglithiazone. Bentley Arenas states that the patient's blood sugars were well controlled. I called back the patient's and told her that Mr. Koroma's hgba1c was 5.5 which is borderline diabetic. I explained that Mr. Christianson would require follow up with the PCP as he is borderline diabetic and his blood sugars for 150-200 intermittly during admission. I explained that he would benefit from lifestyle changes before the addition of diabetic medications. I also told the that the patient has an IOP on Apr 27, 2017 @ 2pm at [address] [place], [place] [id number]
== END 2017-04-23 14:50 | DRG 897 ==
LOC: ERH 16:54 → CRI 04-11 00:40 → 2NB 04-11 00:40 → 2NA 04-11 00:40 → ERHI 04-11 00:40 → EDBEDREQ 04-11 01:18 → ENRESERV 04-11 02:14 → 2NB 04-11 02:56 → CRI 04-12 05:30 → ENTRNSPT 04-17 12:34 → EDTRNSPT 04-17 12:57 → EDTRNSPTSTS 04-17 12:57 → CMPTRNSPT 04-17 13:17 → 2NA 04-17 13:17 → ENPENDDIS 04-23 13:40 → 2NA 04-23 14:50
PROVIDERS: Emergency Medicine; Internal Medicine; Internal Medicine Endocrinology, Diabetes & Metabolism; Student in an Organized Health Care Education/Training Program
DX: F10.231 Alcohol dependence with withdrawal delirium (principal); E11.8 Type 2 diabetes mellitus with unspecified complications; K70.10 Alcoholic hepatitis without ascites; F10.229 Alcohol dependence with intoxication, unspecified; Y90.7 Blood alcohol level of 200-239 mg/100 ml; I10 Essential (primary) hypertension; R45.1 Restlessness and agitation
CPT/HCPCS: 2NAP; 2NBSP; CCU; 36415; 80307; 81001; 82436; 87086; 93005; 93010; 97110-GO; 97112-GO; 97116-GO; 97127-GO; 97161-GP; 97165-GO; 97530-GO; G0480; J1644; J1650; J1940; J2060; J2405; J3250; J3490; J7040; J7042; J7060